=== PATIENT | female | born 1940 | race Caucasian/White ===

== ENCOUNTER → 2016-07-13 | Outpatient (CLI) | payer MEDICARE ==
[~2016-07-13] MED LIST: SODIUM CHLORIDE 0.9% 250 ML in EMPTY BAG 1 BAG IV PRN; SODIUM CHLORIDE 0.9% 500 ML in EMPTY BAG 1 BAG IV PRN
[2016-07-13 11:16] VITALS: RESP 16; TEMP 97.8
[2016-07-13 12:06] VITALS: PULSE 59
[2016-07-13 12:22] VITALS: BP 123/75
== END ==
LOC: PROCWHC3 11:03
PROVIDERS: ATTEND Internal Medicine Rheumatology
DX: M06.09 Rheumatoid arthritis without rheumatoid factor, multiple sites (principal)
CPT/HCPCS: 96361; 96413; 96415; J1745

== ENCOUNTER → 2016-08-24 | Outpatient (CLI) | payer MEDICARE ==
[2016-08-24 11:34] VITALS: RESP 18; TEMP 98
[2016-08-24 13:16] VITALS: BP 110/59; PULSE 58
== END | disposition home or self-care (01) ==
LOC: PROCWHC3 11:03
PROVIDERS: ATTEND Internal Medicine Rheumatology
DX: M05.89 Other rheumatoid arthritis with rheumatoid factor of multiple sites (principal)
CPT/HCPCS: 96361; 96413; 96415; J1745

== ENCOUNTER → 2016-10-12 | Outpatient (CLI) | payer MEDICARE | END | disposition home or self-care (01) | LOC: PROCWHC3 11:35 | PROVIDERS: ATTEND Internal Medicine Rheumatology | DX: Z53.9 Procedure and treatment not carried out, unspecified reason (principal) ==

== ENCOUNTER → 2016-11-09 | Outpatient (CLI) | payer MEDICARE ==
[2016-11-09 10:24] VITALS: TEMP 97.7
[2016-11-09 10:57] LABS: Basophils % (A) 0 %; CH 31.8; CHCM 32.8; Eosinophils # (A) 0.4 k/uL (0-0.7); Eosinophils % (A) 7 %; HCT 39.7 % (34.0-46.0); HDW 3.06; HGB 12.7 gm/dL (11.4-16.0); Luc # (Auto) 0.15; Luc % (Auto) 3; Lymphocytes # (A) 2.5 k/uL (1.0-4.8); Lymphocytes % (A) 42 %; MCH 31.2 pg (25.0-35.0); MCHC 32.1 g/dL (31.0-37.0); MCV 97.4 fL (80.0-100.0); Mean Platelet Volume 9.4; Monocytes # (A) 0.3 k/uL (0-1.0); Monocytes % (A) 5 %; Neutrophils # (A) 2.6 k/uL (1.3-7.7); Neutrophils % (A) 44 %; RBC 4.08 m/uL (3.80-5.40); RDW 13.8 % (11.5-15.5); WBC (Perox) 6.03
[2016-11-09 11:08] VITALS: PULSE 61; RESP 16
[2016-11-09 11:54] LABS: Erythrocyte Sedimentation Rate 8 mm/hr (0-20)
[2016-11-09 12:00] VITALS: BP 144/71
[2016-11-09 13:09] LABS: C Reactive Protein 6.4 mg/L (<10.0)
== END ==
LOC: PROCWHC3 08:51
PROVIDERS: ATTEND Internal Medicine Rheumatology
DX: M06.89 Other specified rheumatoid arthritis, multiple sites (principal)
CPT/HCPCS: 85652; 82550; 84450; 84460; 85025; 86140; 96413; 96415; J1745

== ENCOUNTER → 2016-11-14 | Outpatient (CLI) | payer MEDICARE | END | disposition home or self-care (01) | LOC: LABWHC1 15:50 | PROVIDERS: ATTEND Physical Medicine & Rehabilitation | DX: Z01.812 Encounter for preprocedural laboratory examination (principal); N28.9 Disorder of kidney and ureter, unspecified; M54.5 Low back pain; M43.06 Spondylolysis, lumbar region; M47.896 Other spondylosis, lumbar region; M41.26 Other idiopathic scoliosis, lumbar region; M51.17 Intervertebral disc disorders with radiculopathy, lumbosacral region | CPT/HCPCS: 36415; 82565; 84520 ==

== ENCOUNTER → 2016-12-21 | Outpatient (CLI) | payer MEDICARE ==
[2016-12-21 10:49] VITALS: TEMP 98.5
[2016-12-21 12:03] VITALS: RESP 18
[2016-12-21 12:45] VITALS: BP 106/54; PULSE 55
== END | disposition home or self-care (01) ==
LOC: PROCWHC3 10:20
PROVIDERS: ATTEND Internal Medicine Rheumatology
DX: M06.89 Other specified rheumatoid arthritis, multiple sites (principal)
CPT/HCPCS: 96413; 96415; J1745

== ENCOUNTER → 2017-02-01 | Outpatient (CLI) | payer MEDICARE ==
[2017-02-01 11:14] VITALS: TEMP 98
[2017-02-01 11:25] LABS: Basophils % (A) 1 %; CH 31.8; CHCM 32.7; Eosinophils # (A) 0.4 k/uL (0-0.7); Eosinophils % (A) 6 %; HCT 36.2 % (34.0-46.0); HDW 2.98; HGB 11.9 gm/dL (11.4-16.0); Luc # (Auto) 0.17; Luc % (Auto) 3; Lymphocytes # (A) 2.3 k/uL (1.0-4.8); Lymphocytes % (A) 37 %; MCH 32.2 pg (25.0-35.0); MCHC 32.8 g/dL (31.0-37.0); Mean Platelet Volume 8.5; Monocytes # (A) 0.3 k/uL (0-1.0); Monocytes % (A) 4 %; Neutrophils # (A) 3.1 k/uL (1.3-7.7); Neutrophils % (A) 49 %; RBC 3.69 m/uL (3.80-5.40); RDW 14.9 % (11.5-15.5); WBC 6.3 k/uL (3.8-10.6); WBC (Perox) 6.74
[2017-02-01 11:36] LABS: ALT 39 U/L (9-52); AST 30 U/L (14-36); C Reactive Protein <5.0 mg/L (<10.0); Non-African American GFR(MDRD) 48 (>60 ml/min/1.73 sqM)
[2017-02-01 11:48] VITALS: RESP 18
[2017-02-01 12:51] LABS: Erythrocyte Sedimentation Rate 12 mm/hr (0-20)
[2017-02-01 12:52] VITALS: BP 144/83; PULSE 65
== END | disposition home or self-care (01) ==
LOC: PROCWHC3 10:24
PROVIDERS: ATTEND Internal Medicine Rheumatology
DX: M06.89 Other specified rheumatoid arthritis, multiple sites (principal)
CPT/HCPCS: 85652; 82565; 84450; 84460; 85025; 86140; 96413; 96415; 36415; J1745

== ENCOUNTER → 2017-03-20 | Outpatient (CLI) | payer MEDICARE ==
[~2017-03-20] MED LIST changes: +INFLIXIMAB-DYYB 500 MG in SODIUM CHLORIDE 0.9% 250 ML IV NR; -SODIUM CHLORIDE 0.9% 250 ML in EMPTY BAG 1 BAG IV PRN
[2017-03-20 12:23] VITALS: TEMP 98.2
[2017-03-20 13:51] VITALS: BP 134/98; PULSE 67; RESP 18
== END | disposition home or self-care (01) ==
LOC: PROCWHC3 11:59
PROVIDERS: ATTEND Internal Medicine Rheumatology
DX: M06.89 Other specified rheumatoid arthritis, multiple sites (principal)
CPT/HCPCS: 96413; 96415; Q5102

== ENCOUNTER → 2017-05-29 | Outpatient (CLI) | payer MEDICARE ==
[2017-05-29 11:41] VITALS: RESP 16; TEMP 96.5
[2017-05-29 12:10] LABS: Basophils % (A) 1 %; CH 30.2; CHCM 32.4; Eosinophils # (A) 0.4 k/uL (0-0.7); Eosinophils % (A) 5 %; HCT 39.2 % (34.0-46.0); HDW 3.12; HGB 12.4 gm/dL (11.4-16.0); Luc # (Auto) 0.34; Luc % (Auto) 5; Lymphocytes % (A) 40 %; MCH 29.7 pg (25.0-35.0); MCHC 31.7 g/dL (31.0-37.0); MCV 93.6 fL (80.0-100.0); Mean Platelet Volume 7.2; Monocytes # (A) 0.3 k/uL (0-1.0); Monocytes % (A) 5 %; Neutrophils # (A) 3.4 k/uL (1.3-7.7); Neutrophils % (A) 45 %; RBC 4.18 m/uL (3.80-5.40); RDW 12.7 % (11.5-15.5); WBC 7.6 k/uL (3.8-10.6); WBC (Perox) 7.59
[2017-05-29 13:20] LABS: Erythrocyte Sedimentation Rate 25 mm/hr (0-20)
[2017-05-29 13:37] LABS: ALT 26 U/L (9-52); AST 25 U/L (14-36); C Reactive Protein <5.0 mg/L (<10.0); Non-African American GFR(MDRD) 44 (>60 ml/min/1.73 sqM)
[2017-05-29 13:58] VITALS: BP 128/58; PULSE 56
== END | disposition home or self-care (01) ==
LOC: PROCWHC3 11:08
PROVIDERS: ATTEND Internal Medicine Rheumatology
DX: M06.09 Rheumatoid arthritis without rheumatoid factor, multiple sites (principal)
CPT/HCPCS: 85652; 82565; 84450; 84460; 85025; 86140; 96365; Q5102

== ENCOUNTER → 2017-07-10 | Outpatient (CLI) | payer MEDICARE ==
[2017-07-10 11:59] VITALS: TEMP 98.3
[2017-07-10 13:32] VITALS: BP 127/91; PULSE 79; RESP 16
== END | disposition home or self-care (01) ==
LOC: PROCWHC3 11:44
PROVIDERS: ATTEND Internal Medicine Rheumatology
DX: M06.09 Rheumatoid arthritis without rheumatoid factor, multiple sites (principal)
CPT/HCPCS: 96413; 96415; Q5102

== ENCOUNTER → 2017-08-29 | Outpatient (CLI) | payer MEDICARE ==
[~2017-08-29] MED LIST changes: -INFLIXIMAB-DYYB 500 MG in SODIUM CHLORIDE 0.9% 250 ML IV NR; +INFLIXIMAB-DYYB 500 MG in SODIUM CHLORIDE 0.9% 250 ML IV ONE
[2017-08-29 11:36] VITALS: TEMP 97.8
[2017-08-29 12:01] LABS: Basophils # (A) 0.1 k/uL (0-0.2); Basophils % (A) 1 %; Eosinophils # (A) 0.4 k/uL (0-0.7); Eosinophils % (A) 8 %; HCT 40.5 % (34.0-46.0); HGB 13.3 gm/dL (11.4-16.0); Lymphocytes # (A) 2.1 k/uL (1.0-4.8); Lymphocytes % (A) 41 %; MCH 30.7 pg (25.0-35.0); MCHC 32.7 g/dL (31.0-37.0); MCV 94.1 fL (80.0-100.0); Mean Platelet Volume 7.3; Monocytes # (A) 0.4 k/uL (0-1.0); Monocytes % (A) 7 %; Neutrophils # (A) 2.1 k/uL (1.3-7.7); Neutrophils % (A) 40 %; Platelet Count 161 k/uL (150-450); RBC 4.31 m/uL (3.80-5.40); RDW 15.3 % (11.5-15.5); WBC 5.2 k/uL (3.8-10.6)
[2017-08-29 12:10] LABS: ALT 25 U/L (9-52); AST 22 U/L (14-36); C Reactive Protein <5.0 mg/L (<10.0)
[2017-08-29 13:14] VITALS: BP 122/68; PULSE 58; RESP 14
[2017-08-29 13:54] LABS: Erythrocyte Sedimentation Rate 8 mm/hr (0-20)
== END | disposition home or self-care (01) ==
LOC: PROCWHC3 10:58
PROVIDERS: ATTEND Internal Medicine Rheumatology
DX: M06.09 Rheumatoid arthritis without rheumatoid factor, multiple sites (principal); Z88.2 Allergy status to sulfonamides
CPT/HCPCS: 85652; 82565; 84450; 84460; 85025; 86140; 96413; 96415; 36415; Q5102

== ENCOUNTER → 2017-10-10 | Outpatient (CLI) | payer MEDICARE ==
[~2017-10-10] MED LIST changes: +INFLIXIMAB-DYYB 500 MG in SODIUM CHLORIDE 0.9% 250 ML IV NR; -INFLIXIMAB-DYYB 500 MG in SODIUM CHLORIDE 0.9% 250 ML IV ONE
[2017-10-10 11:24] VITALS: TEMP 97.1
[2017-10-10 12:06] VITALS: RESP 18
[2017-10-10 12:36] VITALS: BP 139/63; PULSE 66
== END | disposition home or self-care (01) ==
LOC: PROCWHC3 10:59
PROVIDERS: ATTEND Internal Medicine Rheumatology
DX: M06.09 Rheumatoid arthritis without rheumatoid factor, multiple sites (principal); M06.4 Inflammatory polyarthropathy
CPT/HCPCS: 96413; 96415; Q5103

== ENCOUNTER → 2017-11-06 | Outpatient (CLI) | payer MEDICARE ==
--- NOTE | 2017-11-07 09:41 | BD ---
EXAMINATION TYPE: Axial Bone Density DATE OF EXAM: 11/06/2017 COMPARISON: 08/21/2005 DEXA bone scan report. CLINICAL HISTORY: Postmenopausal female Height: 61. IN Weight: 184 LBS FRAX RISK QUESTIONS: History of Fracture in Adulthood: LT ANKLE FX AGE 64 Rheumatoid Arthritis: YES RISK FACTORS HISTORY OF: Family History of Osteoporosis: YES MOTHER Active: YES Diet low in dairy products/other sources of calcium: YES Postmenopausal woman: AGE 51 MEDICATIONS: Additional Medications: EFFEXOR, METROPROLOL, OMEPRAZOLE, SIMVASTATIN, REMICADE INFUSION (EVERY 6 WEE KS FOR RA), METHOTREXATE (3 ONCE PER WEEK FOR RA), MOBIC, TOPIRAMATE, MULTI VIT, FISH OIL, EXAM MEASUREMENTS: Bone mineral densitometry was performed using the [employer]. Bone mineral density as measured about the Lumbar spine is: ----- L1-L4(G/cm2): 1.258 T Score Values are as follows: ----- L2: 1.2 ----- L3: -1.5 ----- L4: 1.5 ----- L1-L4: 0.7 Bone mineral density has: Decreased -16.0% since study of: 08/21/2005 Bone mineral density about the R hip (g/cm2): 0.976 Bone mineral density about the L hip (g/cm2): 0.816 T Score values are as follows: -----R Neck: -0.4 -----L Neck: -1.6 -----R Total: -1.0 -----L Total: -0.9 Bone mineral density has: Decreased -17.6% since study of: 08/21/2005 IMPRESSION: Osteopenia (T Score between -2.5 and -1) is present femoral neck level left hip. There is slightly increased risk of fracture and the patient may be considered for treatment. Re-Screen 2-5 years. NOTE: T-SCORE=SD OF THE YOUNG ADULT MEAN.
--- NOTE | 2017-11-07 10:59 | MM ---
Reason for exam: screening (asymptomatic). Last mammogram was performed 2 years and 3 months ago. History: Patient is postmenopausal and has history of high-risk lesion on a previous biopsy at age 67. Family history of breast cancer in maternal grandmother at age 50. Benign MG stereo VAD BX RT of the right breast, August 20, 2014. Excisional biopsy of the right breast, November 28, 2007. High risk right mammotome panel of the right breast, August 14, 2007. Physical Findings: A clinical breast exam by your physician is recommended on an annual basis and results should be correlated with mammographic findings. MG Screening Mammo w CAD Bilateral CC and MLO view(s) were taken. Prior study comparison: August 05, 2015, bilateral MG 3d diag mammo w/cad JEFFRY. January 31, 2015, right breast MG diagnostic mammo RT w CAD. June 16, 2014, bilateral MG screening mammo w CAD. There are scattered fibroglandular densities. Finding: There are increased heterogeneous, tightly grouped/clustered calcifications in the upper outer quadrant of the left breast 11cm from the nipple. Previous mammotome biopsy in the right breast. New finding since August 05, 2015, January 31, 2015, and June 16, 2014. ASSESSMENT: Incomplete: need additional imaging evaluation, BI-RAD 0 RECOMMENDATION: Special view mammogram of the left breast. [facility] will attempt to contact patient to return for supplemental views.
== END | disposition home or self-care (01) ==
LOC: RADMAMWWP 14:47
PROVIDERS: ATTEND Internal Medicine
DX: Z12.31 Encounter for screening mammogram for malignant neoplasm of breast (principal); M85.852 Other specified disorders of bone density and structure, left thigh; Z78.0 Asymptomatic menopausal state
CPT/HCPCS: 77067; 77080

== ENCOUNTER → 2017-11-18 | Outpatient (CLI) | payer MEDICARE ==
--- NOTE | 2017-11-19 09:43 | MM ---
Reason for exam: additional evaluation requested from abnormal screening. Last mammogram was performed less than 1 month ago. History: Patient is postmenopausal and has history of high-risk lesion on a previous biopsy at age 67. Family history of breast cancer in maternal grandmother at age 50. Benign MG stereo VAD BX RT of the right breast, August 20, 2014. Excisional biopsy of the right breast, November 28, 2007. High risk right mammotome panel of the right breast, August 14, 2007. Took estrogen for 5 years beginning at age 50. Took progesterone for 5 years beginning at age 50. Physical Findings: Nurse Summary: 0.5cm nodule in the left breast at 2 o'clock (nurse dw). MG 3D Work Up W/Cad LT CC with magnification, LM with magnification, and LM view(s) were taken of the left breast. Prior study comparison: November 06, 2017, bilateral MG screening mammo w CAD. August 05, 2015, bilateral MG 3d diag mammo w/cad JEFFRY. Stable benign appearing calcifications. These results were verbally communicated with the patient and result sheet given to the patient on 11/18/17. ASSESSMENT: Incomplete: need additional imaging evaluation, BI-RAD 0 RECOMMENDATION: Ultrasound of the left breast.
--- NOTE | 2017-11-19 09:47 | USB ---
Reason for exam: additional evaluation requested from abnormal screening. History: Patient is postmenopausal and has history of high-risk lesion on a previous biopsy at age 67. Family history of breast cancer in maternal grandmother at age 50. Benign MG stereo VAD BX RT of the right breast, August 20, 2014. Excisional biopsy of the right breast, November 28, 2007. High risk right mammotome panel of the right breast, August 14, 2007. Took estrogen for 5 years beginning at age 50. Took progesterone for 5 years beginning at age 50. US Breast Workup Limited LT Left limited breast ultrasound including focal area of concern, retroareolar and axilla demonstrates a 0.5 x 0.3 x 0.3cm mixed lesion at 12 o'clock and a 0.6 x 0.5 x 0.5cm hyperechoic lesion at 2 o'clock. These results were verbally communicated with the patient and result sheet given to the patient on 11/18/17. ASSESSMENT: Probably benign, BI-RAD 3 RECOMMENDATION: Ultrasound of the left breast in 6 months. Manage patient on a clinical basis.
== END | disposition home or self-care (01) ==
LOC: RADMAMWWP 15:42
PROVIDERS: ATTEND Internal Medicine
DX: R92.8 Other abnormal and inconclusive findings on diagnostic imaging of breast (principal)
CPT/HCPCS: 77065; 76642; G0279; 77061

== ENCOUNTER → 2017-11-21 | Outpatient (CLI) | payer MEDICARE ==
[2017-11-21 11:46] VITALS: TEMP 99
[2017-11-21 13:06] VITALS: BP 133/83; PULSE 65; RESP 16
== END | disposition home or self-care (01) ==
LOC: PROCWHC3 11:03
PROVIDERS: ATTEND Internal Medicine Rheumatology
DX: M06.4 Inflammatory polyarthropathy (principal)
CPT/HCPCS: 96413; 96415; Q5103

== ENCOUNTER → 2018-01-08 | Outpatient (CLI) | payer MEDICARE ==
[2018-01-08 10:33] LABS: HCT 39.5 % (34.0-46.0); HGB 12.8 gm/dL (11.4-16.0); MCH 31.7 pg (25.0-35.0); MCHC 32.4 g/dL (31.0-37.0); MCV 97.6 fL (80.0-100.0); Mean Platelet Volume 7.7; Platelet Count 152 k/uL (150-450); RBC 4.05 m/uL (3.80-5.40); RDW 13.8 % (11.5-15.5); WBC 7.6 k/uL (3.8-10.6)
[2018-01-08 10:47] LABS: Albumin 3.8 g/dL (3.5-5.0); Potassium 4.5 mmol/L (3.5-5.1); Total Bilirubin 0.4 mg/dL (0.2-1.3); Total Protein 6.6 g/dL (6.3-8.2)
== END | disposition home or self-care (01) ==
LOC: LABWHC1 10:09
PROVIDERS: ATTEND Thoracic Surgery (Cardiothoracic Vascular Surgery)
DX: E63.8 Other specified nutritional deficiencies (principal)
CPT/HCPCS: 36415; 80053; 84134; 85027

== ENCOUNTER → 2018-03-07 | Outpatient (CLI) | payer MEDICARE ==
[~2018-03-07] MED LIST changes: +SODIUM CHLORIDE 0.9% 500 ML 500 ML in EMPTY BAG 1 BAG IV PRN; -SODIUM CHLORIDE 0.9% 500 ML in EMPTY BAG 1 BAG IV PRN
[2018-03-07 13:06] VITALS: RESP 18; TEMP 98.2
[2018-03-07 13:21] LABS: HCT 38.6 % (34.0-46.0); HGB 12.4 gm/dL (11.4-16.0); MCH 31.5 pg (25.0-35.0); MCHC 32.1 g/dL (31.0-37.0); MCV 98.4 fL (80.0-100.0); Mean Platelet Volume 7.3; Platelet Count 166 k/uL (150-450); RBC 3.92 m/uL (3.80-5.40); RDW 14.4 % (11.5-15.5); WBC 6.9 k/uL (3.8-10.6)
[2018-03-07 13:53] LABS: ALT 36 U/L (9-52); AST 33 U/L (14-36); C Reactive Protein <5.0 mg/L (<10.0)
[2018-03-07 14:01] LABS: Erythrocyte Sedimentation Rate 13 mm/hr (0-20)
[2018-03-07 14:24] VITALS: BP 130/82; PULSE 70
== END | disposition home or self-care (01) ==
LOC: PROCWHC3 11:50
PROVIDERS: ATTEND Internal Medicine Rheumatology
DX: M06.09 Rheumatoid arthritis without rheumatoid factor, multiple sites (principal); M06.4 Inflammatory polyarthropathy
CPT/HCPCS: 85652; 82565; 84450; 84460; 85027; 86140; 96413; 96415; Q5103

== ENCOUNTER → 2018-04-18 | Outpatient (CLI) | payer MEDICARE ==
[2018-04-18 11:50] VITALS: TEMP 97.9
[2018-04-18 12:54] VITALS: RESP 16
[2018-04-18 13:39] VITALS: BP 136/79; PULSE 65
== END | disposition home or self-care (01) ==
LOC: PROCWHC3 11:04
PROVIDERS: ATTEND Internal Medicine Rheumatology
DX: M06.09 Rheumatoid arthritis without rheumatoid factor, multiple sites (principal); M06.4 Inflammatory polyarthropathy
CPT/HCPCS: 96413; 96415; Q5103

== ENCOUNTER → 2018-06-06 | Outpatient (CLI) | payer MEDICARE ==
[2018-06-06 09:06] VITALS: TEMP 98.3
[2018-06-06 09:55] VITALS: RESP 18
[2018-06-06 10:46] VITALS: BP 129/83; PULSE 77
== END | disposition home or self-care (01) ==
LOC: PROCWHC3 08:34
PROVIDERS: ATTEND Internal Medicine Rheumatology
DX: M06.09 Rheumatoid arthritis without rheumatoid factor, multiple sites (principal); Z88.2 Allergy status to sulfonamides
CPT/HCPCS: 96413; 96415; Q5103

== ENCOUNTER → 2018-07-04 | Outpatient (CLI) | payer MEDICARE ==
--- NOTE | 2018-07-08 11:54 | USB ---
Reason for exam: additional evaluation requested from prior study. History: Patient is postmenopausal and has history of high-risk lesion on a previous biopsy at age 67. Family history of breast cancer in maternal grandmother at age 50. Benign MG stereo VAD BX RT of the right breast, August 20, 2014. Excisional biopsy of the right breast, November 28, 2007. High risk right mammotome panel of the right breast, August 14, 2007. Took estrogen for 5 years beginning at age 50. Took progesterone for 5 years beginning at age 50. Physical Findings: Nurse Summary: Left breast prominent nodularity at 12 and 1 o'clock. All soft and movable. US Breast LT Prior study comparison: November 18, 2017, left breast MG 3d work up w/cad LT. November 18, 2017, left breast US breast workup limited LT. Left complete breast ultrasound includes all four quadrants, the retroareolar region and axilla. Finding demonstrates a 5 x 3 x 2 mm oval hyopechoic lesion seen on previous ultrasound. These results were verbally communicated with the patient and result sheet given to the patient on 07/04/18. ASSESSMENT: Probably benign, BI-RAD 3 RECOMMENDATION: Routine screening mammogram of both breasts in 6 months. Ultrasound of the left breast in 6 months.
== END | disposition home or self-care (01) ==
LOC: RADUSWWP 14:51
PROVIDERS: ATTEND Internal Medicine
DX: N63.20 Unspecified lump in the left breast, unspecified quadrant (principal)

== ENCOUNTER → 2018-07-22 | Outpatient (CLI) | payer MEDICARE ==
[2018-07-22 10:21] VITALS: RESP 16; TEMP 98.3
[2018-07-22 11:38] VITALS: BP 98/64; PULSE 68
[2018-07-22 12:00] LABS: Basophils % (A) 0 %; Eosinophils # (A) 0.4 k/uL (0-0.7); Eosinophils % (A) 4 %; HCT 38.9 % (34.0-46.0); HGB 13.1 gm/dL (11.4-16.0); Lymphocytes # (A) 1.8 k/uL (1.0-4.8); Lymphocytes % (A) 23 %; MCH 31.5 pg (25.0-35.0); MCHC 33.7 g/dL (31.0-37.0); MCV 93.4 fL (80.0-100.0); Mean Platelet Volume 8.1; Monocytes # (A) 0.4 k/uL (0-1.0); Monocytes % (A) 5 %; Neutrophils % (A) 64 %; Platelet Count 176 k/uL (150-450); RBC 4.17 m/uL (3.80-5.40); RDW 13.2 % (11.5-15.5); WBC 7.8 k/uL (3.8-10.6)
[2018-07-22 12:14] LABS: C Reactive Protein 28.5 mg/L (<10.0)
[2018-07-22 15:33] LABS: Erythrocyte Sedimentation Rate 39 mm/hr (0-20)
== END ==
LOC: PROCWHC3 09:54
PROVIDERS: ATTEND Internal Medicine Rheumatology
DX: M06.09 Rheumatoid arthritis without rheumatoid factor, multiple sites (principal); Z88.2 Allergy status to sulfonamides
CPT/HCPCS: 85652; 82565; 84460; 85025; 86140; 96413; 96415; Q5103

== ENCOUNTER → 2018-08-25 | Outpatient (CLI) | payer MEDICARE ==
--- NOTE | 2018-08-25 16:07 | XR ---
EXAMINATION TYPE: XR chest 2V DATE OF EXAM: 08/25/2018 COMPARISON: None INDICATION: Short of breath TECHNIQUE: Frontal and lateral views of the chest are obtained. FINDINGS: The heart size is normal. The pulmonary vasculature is normal. Chronic appearing lung markings appear to be present. Correlate for pulmonary fibrosis. Suspicious fo karri consolidation is not identified. IMPRESSION: 1. Diffuse increased lung markings suggestive for pulmonary fibrosis. Focal consolidation is not evid ent. Follow-up exams can be performed as clinically indicated.
== END | disposition home or self-care (01) ==
LOC: RADXRMAIN 13:41
PROVIDERS: ATTEND Internal Medicine
DX: J98.4 Other disorders of lung (principal); R06.02 Shortness of breath
CPT/HCPCS: 71046

== ENCOUNTER → 2018-09-02 | Outpatient (CLI) | payer MEDICARE ==
[2018-09-02 12:12] VITALS: PULSE 86; RESP 16; TEMP 98.1
[2018-09-02 13:40] VITALS: BP 111/67
== END | disposition home or self-care (01) ==
LOC: PROCWHC3 11:00
PROVIDERS: ATTEND Internal Medicine Rheumatology
DX: M06.09 Rheumatoid arthritis without rheumatoid factor, multiple sites (principal); Z88.2 Allergy status to sulfonamides
CPT/HCPCS: 96413; 96415; Q5103

== ENCOUNTER → 2018-09-10 | Outpatient (CLI) | payer MEDICARE ==
--- NOTE | 2018-09-10 14:58 | CT ---
EXAMINATION TYPE: CT chest w con DATE OF EXAM: 09/10/2018 COMPARISON: Chest x-ray from August 25, 2018 HISTORY: Pulmonary Fibrosis per order. Shortness of breath and cough. CT DLP: 534 mGycm. Automated Exposure Control for Dose Reduction was Utilized. TECHNIQUE: CT scan of the thorax is performed following with IV Contrast, patient injected with 80 m L of Isovue 300. FINDINGS: LUNGS: There is confirmation of peripheral reticulation and fibrosis seen bilaterally and diffusely i nvolving upper and lower lungs. Some honeycombing in the bases is present just above the diaphragms. No suspicious consolidation is seen. No pleural effusion or pneumothorax is noted. Tracheobronchial t ree is patent. MEDIASTINUM: There are borderline enlarged mediastinal and left hilar lymph nodes. No cardiomegaly or pericardial effusion is seen. Enlarged right and left pulmonary arteries consistent with underlyi ng pulmonary hypertension is present. OTHER: There is 4 mm calculus upper pole right kidney axial image 61. Underlying S-shaped scoliosis w ith moderate multilevel spurring in the visualized spine is present. IMPRESSION: Confirmation of diffuse bilateral parenchymal fibrosis in the periphery without acute pul monary process. Underlying IPF needs to BE considered. Underlying pulmonary artery hypertension noted .
== END | disposition home or self-care (01) ==
LOC: RADCTMAIN 12:48
PROVIDERS: ATTEND Internal Medicine
DX: J84.112 Idiopathic pulmonary fibrosis (principal); I27.21 Secondary pulmonary arterial hypertension
CPT/HCPCS: 82565; 84520; 71260; 36415; Q9967

== ENCOUNTER 2018-09-23 03:33 | Inpatient (IN) | payer MEDICARE ==
[2018-09-23] MEDS ORDERED: MORPHINE SULFATE 4 MG/ML SYRINGE IV STA (04:09)
--- NOTE | 2018-09-23 04:13 | ED ---
Chest Pain HPI - General Chief Complaint: Chest Pain Stated Complaint: Chest Pain SOB Time Seen by Provider: 09/23/18 03:47 Source: patient, family Mode of arrival: ambulatory Limitations: no limitations - History of Present Illness Initial Comments: This patient is a 78-year-old woman who presents to be evaluated for right upper chest pain and a cough. She states that this is been going on "since the holidays," and that she is scheduled to see Dr. Galo regarding pulmonary fibrosis. She believes the pain is related to this. Patient states that she presents tonight because the pain is become more intense parameters sleep. The patient states that the cough is largely nonproductive. She has not noted fever or chills. She describes it pain as being sharp, constant, now severe. The pain is worse pressing on the chest also with coughing and with deep breaths. She has not noted relieving factors. No other associated symptoms. MD Complaint: chest pain -: month(s) Onset: during rest Pain Location: right chest Pain Radiation: none Severity: moderate Quality: sharp Consistency: constant Improves With: nothing Worsens With: inspiration, palpation Other Symptoms: cough Treatments Prior to Arrival: none - Related Data Home Medications Medication Instructions Recorded Confirmed Aspirin 81 mg PO DAILY 11/11/13 09/02/18 Ergocalciferol [Vitamin D2 1,000 mg PO DAILY 11/11/13 09/02/18 (DRISDOL)] Fish Oil/Dha/Epa [Fish Oil 1,200 1 tab PO DAILY 11/11/13 09/02/18 mg Fish Oil] Gluc HCl/Ashvin/Mv/Min Aa/Hb 162 1 tab PO DAILY 11/11/13 09/02/18 [Glucosamine-Chondroitin Caplet] HYDROcodone/APAP 10-325MG [Johnson 0.325 mg PO Q4HR PRN 11/11/13 09/02/18 10-325] Methotrexate Sodium [Methotrexate] 7.5 mg PO WEEKLY 11/11/13 09/02/18 Metoprolol Succinate (ER) [Toprol 100 mg PO DAILY 11/11/13 09/02/18 XL] Multiple Vitamin 1 tab PO DAILY 11/11/13 09/02/18 Omeprazole [PriLOSEC] 20 mg PO DAILY 11/11/13 09/02/18 Simvastatin [Zocor] 40 mg PO HS 11/11/13 09/02/18 Topiramate [Trokendi Xr] 100 mg PO DAILY 11/11/13 09/02/18 inFLIXimab [Remicade] 500 mg IVPB DIRECTED 11/11/13 09/02/18 Venlafaxine HCl [Effexor] 75 mg PO TID 12/21/16 09/02/18 Mupirocin Calcium 2% Cream 1 applic TOPICAL TID 01/08/18 09/02/18 [Bactroban 2% Cream] Allergies Allergy/AdvReac Type Severity Reaction Status Date / Time Sulfa (Sulfonamide Allergy Rash/Hives Verified 09/23/18 03:41 Antibiotics) Review of Systems ROS Statement: Those systems with pertinent positive or pertinent negative responses have been documented in the HPI. ROS Other: All systems not noted in ROS Statement are negative. Constitutional: Denies: fever, chills Respiratory: Reports: cough. Denies: dyspnea, wheezes, hemoptysis Cardiovascular: Reports: chest pain. Denies: palpitations, orthopnea, edema, syncope Gastrointestinal: Denies: abdominal pain, vomiting, diarrhea Genitourinary: Denies: dysuria Musculoskeletal: Denies: back pain Skin: Denies: rash Neurological: Denies: headache EKG Findings - EKG Results: EKG: interpreted by ERMSanjuanita, sinus rhythm (Rate 94 bpm) - Blocks, [place], Hypertrophy, ST Abn: QRS axis and voltage: left axis deviation (-30 to -90) Chamber hypertrophy or enlargement: only voltage criteria for left ventricular hypertrophy Repolarization changes or abnormalities: nonspecific abnormality, ST segment, and/or T wave Past Medical History Past Medical History: GERD/Reflux, Hyperlipidemia, Hypertension, Rheumatoid Arthritis (RA), Sleep Apnea/CPAP/BIPAP Additional Past Medical History / Comment(s): pulmonary fibrosis History of Any Multi-Drug Resistant Organisms: None Reported Past Surgical History: Back Surgery, Hysterectomy Additional Past Surgical History / Comment(s): SINUS SURG/COLONOSCOPY/RT BREAST BIOPSY/ANKLE ORIF LT/LT KNEE ARTHROSCOPY/LASIK SURG BOTH EYES. hardware removed from left ankle in January 2017 Past Anesthesia/Blood Transfusion Reactions: No Reported Reaction Past Psychological History: No Psychological Hx Reported Smoking Status: Never smoker Past Alcohol Use History: None Reported Past Drug Use History: None Reported - Past Family History Mother Family Medical History: CVA/TIA, Hypertension, Rheumatoid Arthritis (RA) Father Family Medical History: Cancer General Exam Limitations: no limitations General appearance: alert, in no apparent distress Head exam: Present: atraumatic, normocephalic Eye exam: Present: normal appearance. Absent: scleral icterus, conjunctival injection ENT exam: Present: normal oropharynx Respiratory exam: Present: respiratory distress (Mild tachypnea), rales. Absent: wheezes, rhonchi, stridor, accessory muscle use, decreased breath sounds, prolonged expiratory Cardiovascular Exam: Present: normal rhythm, tachycardia, normal heart sounds. Absent: systolic murmur, diastolic murmur, rubs, gallop GI/Abdominal exam: Present: soft. Absent: distended, tenderness, guarding, rebound, rigid, mass Extremities exam: Present: normal inspection, normal capillary refill. Absent: pedal edema, calf tenderness Back exam: Present: normal inspection. Absent: CVA tenderness (R), CVA tenderness (L) Neurological exam: Present: alert Skin exam: Present: warm, dry, intact, normal color. Absent: rash Course Vital Signs 09/23/18 09/23/18 09/23/18 03:37 04:36 04:39 Temperature 98.4 F Pulse Rate 108 H 90 Respiratory 22 22 20 Rate Blood Pressure 132/83 144/87 O2 Sat by Pulse 96 98 Oximetry 09/23/18 07:19 Temperature Pulse Rate 72 Respiratory 16 Rate Blood Pressure 164/97 O2 Sat by Pulse 100 Oximetry Chest Pain MDM - MDM Patient is 78-year-old woman in with dyspnea. Suspect that this is multifactorial, including element of pulmonary fibrosis, for which she was to see Dr. Galo. Also suspect that there is component of infiltrate. Patient s tarted on antibiotics, he admitted, and have pulmonary consultation. Disposition Clinical Impression: Pneumonia, Pulmonary fibrosis Disposition: ADMITTED IP TO THIS HOSP Condition: Fair Is patient prescribed a controlled substance at d/c from ED?: No
[2018-09-23] MEDS ORDERED: ONDANSETRON 4 MG/2 ML VIAL IVP STA (04:28)
--- NOTE | 2018-09-23 04:40 | XR ---
ADDENDUM - Added by Timmy Nickerson M.D. on 09/23/2018 4:47 AM (-07:00) Redemonstration of peripheral fibrotic changes bilaterally. EXAM: XR Chest, 2 Views CLINICAL HISTORY: ITS.REASON XR Reason: Chest Pain TECHNIQUE: Frontal and lateral views of the chest. COMPARISON: Chest radiography 08/25/18. FINDINGS: Lungs: Heterogeneous opacities bilaterally. Most prominent at the bases. No dense consolidation. No pleural effusion or pneumothorax. No hilar or mediastinal enlargement. Trachea is unremarkable. Pleural space: See above. Heart: No cardiomegaly. Mediastinum: See above. Bones/joints: Degenerative spine changes. IMPRESSION: Heterogeneous bibasilar opacities. Correlate for infectious etiology.
[2018-09-23 04:44] LABS: Basophils % (A) 0 %; Eosinophils # (A) 0.1 k/uL (0-0.7); Eosinophils % (A) 0 %; HGB 13.1 gm/dL (11.4-16.0); Lymphocytes # (A) 1.4 k/uL (1.0-4.8); Lymphocytes % (A) 9 %; MCH 29.9 pg (25.0-35.0); MCHC 32.7 g/dL (31.0-37.0); MCV 91.6 fL (80.0-100.0); Mean Platelet Volume 9.1; Monocytes # (A) 0.8 k/uL (0-1.0); Monocytes % (A) 5 %; Neutrophils # (A) 13.5 k/uL (1.3-7.7); Neutrophils % (A) 84 %; Platelet Count 104 k/uL (150-450); RBC 4.37 m/uL (3.80-5.40); RDW 14.3 % (11.5-15.5); WBC 16.1 k/uL (3.8-10.6)
[2018-09-23 04:45] LABS: Albumin 3.6 g/dL (3.5-5.0); Calcium 9.9 mg/dL (8.4-10.2); Total Bilirubin 2.3 mg/dL (0.2-1.3); Total Protein 7.9 g/dL (6.3-8.2)
--- NOTE | 2018-09-23 06:21 | CT ---
EXAM: CT Angiography Chest With Intravenous Contrast CLINICAL HISTORY: Pain TECHNIQUE: Axial computed tomographic angiography images of the chest with intravenous contrast using pulmonary embolism protocol. CTDI is 0.085, 0. 085, 1.5, 1.5, 7.4 mGy and DLP is 329.4 mGy-cm. This CT exam was performed using one or more of the following dose reduction techniques: automated exposure control, adjustment of the mA and/or kV according to patient size, and/or use of iterative reconstruction technique. MIP reconstructed images were created and reviewed. COMPARISON: No relevant prior studies available. FINDINGS: Pulmonary arteries: No evidence of pulmonary embolus. Aorta: No thoracic aortic dissection or aneurysm. Lungs: Subpleural reticular opacities seen throughout both lungs likely representing chronic interstitial lung disease. An element of pulmonary vascular congestion or infection is not excluded. Pleural space: Unremarkable. No significant effusion. No pneumothorax. Heart: Coronary artery calcifications. Heart is mildly enlarged. No significant pericardial effusion. No evidence of RV dysfunction. Bones/joints: No acute fracture. No dislocation. Soft tissues: Unremarkable. Lymph nodes: Subcentimeter mediastinal and hilar lymph nodes, likely reactive. Kidneys and ureters: Nonobstructing calculus within the right kidney. IMPRESSION: 1. No pulmonary embolus. 2. Subpleural reticular opacities seen throughout both lungs likely representing chronic interstitial lung disease. An element of pulmonary vascular congestion or infection is not excluded. 3. Nonobstructing calculus within the right kidney.
[2018-09-23] MEDS ORDERED: AZITHROMYCIN 500 MG TAB PO STA (06:35)
[2018-09-23] MEDS ORDERED: PNEUMONIA PROTOCOL UTILIZED 1 EACH MISC PO PRN (06:36)
[2018-09-23] MEDS ORDERED: HYDROcodone/APAP 10-325MG 1 EACH TAB PO PRN (06:40)
[2018-09-23] MEDS: METOPROLOL SUCCINATE (ER) 100 MG TAB.ER.24H PO SCH (08:32)
[2018-09-23] MEDS: CHOLECALCIFEROL 1,000 UNIT TAB PO SCH (08:32)
[2018-09-23] MEDS: ASPIRIN 81 MG PO SCH (08:32)
[2018-09-23] MEDS: MUPIROCIN 2% OINT 22 GM TUBE TOPICAL SCH ×3 (08:34→21:54)
[2018-09-23] MEDS: PANTOPRAZOLE 40 MG TABLET PO SCH (08:49)
[2018-09-23] MEDS ORDERED: METHOTREXATE SODIUM 2.5 MG TAB PO SCH (09:00)
[2018-09-23] MEDS ORDERED: TOPIRAMATE 25 MG TAB PO SCH (09:00)
[2018-09-23] MEDS ORDERED: VENLAFAXINE HCL 75 MG TAB PO SCH (09:00)
[2018-09-23] MEDS: MULTIVITAMINS, THERA 1 EACH TAB PO SCH (12:47)
[2018-09-23] MEDS: GLYCOPYRROLATE 1 MG TAB PO SCH ×2 (12:47→21:53)
[2018-09-23] MEDS: TOPIRAMATE 100 MG TAB PO SCH ×2 (12:47→21:53)
--- NOTE | 2018-09-23 15:27 | P.CNPUL ---
History of Present Illness Consult date: 09/23/18 Requesting physician: Justin Baugh Reason for consult: dyspnea, cough, abnormal CXR/CT Chief complaint: Shortness of breath, right shoulder pain History of present illness: This is a very pleasant 78-year-old female patient who follows with Dr. Bacon out of [facility] [place]. She has a history of gastroesophageal reflux disease, hyperlipidemia, hypertension, sleep apnea, depression. She also follows with Dr. Lozada for rheumatoid arthritis. She had been on methotrexate for greater than 15 years. She is also on Remicade. She has been having ongoing issues since May 2018 with increasing shortness of breath and a dry nonproductive cough. A computed tomography scan done on 09/10/2018 revealed diffuse bilateral parenchymal fibrosis in the periphery without acute pulmonary process. Considerations for IPF was within the differential. She was actually scheduled to see Dr. Galo 09/26/2018 for a new patient consultation. She presented here to the emergency room early this morning with complaints of right upper chest pain and continued dry nonproductive cough. She has had pain in the right shoulder blade as well. A CT angiogram was performed and pulmonary embolus was ruled out. There is again subpleural reticular opacities seen throughout the lung forrest bilaterally representing chronic interstitial lung disease. She is seen today in consultation on the regular medical floor. She is awake and alert in no acute distress. She is currently resting comfortably i n bed. She is maintaining good O2 saturations in the high 90s on room air. She's been afebrile. Somewhat hypertensive. White count 16.1. Hemoglobin 13.1. Creatinine 1.26. Troponin negative 1. She is having ongoing discomfort in the right upper chest and shoulder blade area. No right upper quadrant pain. Review of Systems REVIEW OF SYSTEMS: CONSTITUTIONAL: Alert, oriented in no acute distress. Denies any recent significant weight loss or weight gain. EYES: Denies change in vision. EARS, NOSE, MOUTH, THROAT: Denies headaches, denies sore throat. CARDIOVASCULAR: Right-sided chest pain but no palpitations or syncopal episodes. RESPIRATORY: Shortness of breath, cough, congestion no hemoptysis. GASTROINTESTINAL: Denies change in appetite, denies abdominal pain GENITOURINARY: Denies hematuria, denies infections. MUSKULOSKELETAL: Denies pain, denies swelling. INTEGUMENTARY: Denies rash, denies eczema. NEUROLOGICAL: Denies recent memory loss, no recent seizure activity. PSYCHIATRIC: Denies anxiety, denies depression. HEMATOLOGIC/LYMPHATIC: Denies anemia, denies enlarged lymph nodes. Past Medical History Past Medical History: GERD/Reflux, Hyperlipidemia, Hypertension, Rheumatoid Arthritis (RA), Sleep Apnea/CPAP/BIPAP Additional Past Medical History / Comment(s): Pulmonary fibrosis, 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 History of Any Multi-Drug Resistant Organisms: MRSA Date of last positivie culture/infection: states fall 2017 MDRO Source:: abdomin Past Surgical History: Back Surgery, Hysterectomy, Orthopedic Surgery Additional Past Surgical History / Comment(s): Low back surgery, sinus surgery, L ankle ORIF-hardware since removed, L knee arthroscopy, colonoscopy, R breast core biopsy-benign, bilateral lasik eye surgery, abdominal wound debridements Past Anesthesia/Blood Transfusion Reactions: No Reported Reaction Smoking Status: Never smoker - Past Family History Mother Family Medical History: CVA/TIA, Hypertension Father Family Medical History: Cancer Additional Family Medical History / Comment(s): Father had lung cancer Medications and Allergies Home Medications Medication Instructions Recorded Confirmed Type Aspirin 81 mg PO DAILY 11/11/13 09/23/18 History Ergocalciferol [Vitamin D2 1,000 mg PO DAILY 11/11/13 09/23/18 History (DRISDOL)] Fish Oil/Dha/Epa [Fish Oil 1,200 1 tab PO DAILY 11/11/13 09/23/18 History mg Fish Oil] Methotrexate Sodium [Methotrexate] 7.5 mg PO WEEKLY 11/11/13 09/23/18 History Metoprolol Succinate (ER) [Toprol 100 mg PO DAILY 11/11/13 09/23/18 History XL] Omeprazole [PriLOSEC] 20 mg PO DAILY 11/11/13 09/23/18 History Simvastatin [Zocor] 40 mg PO HS 11/11/13 09/23/18 History Venlafaxine HCl [Effexor] 150 mg PO DAILY 12/21/16 09/23/18 History Glycopyrrolate [Robinul] 1 mg PO BID 09/23/18 09/23/18 History HYDROcodone/APAP 5-325MG [[place] 1 tab PO BID PRN 09/23/18 09/23/18 History 5-325] Multivitamin,Therapeutic [Thera] 1 tab PO DAILY 09/23/18 09/23/18 History Topiramate [Trokendi Xr] 200 mg PO BID 09/23/18 09/23/18 History Venlafaxine HCl [Effexor XR] 75 mg PO HS 09/23/18 09/23/18 History Allergies Allergy/AdvReac Type Severity Reaction Status Date / Time Sulfa (Sulfonamide Allergy Rash/Hives Verified 09/23/18 10:38 Antibiotics) Physical Exam Vitals: Vital Signs Temp Pulse Pulse Resp BP BP Pulse Ox 09/23/18 13:20 97.5 F L 67 16 156/87 98 09/23/18 08:02 97.9 F 78 16 174/93 99 09/23/18 08:00 16 09/23/18 07:19 72 16 164/97 100 09/23/18 04:39 90 20 144/87 98 09/23/18 04:36 22 09/23/18 03:37 98.4 F 108 H 22 132/83 96 Intake and Output 09/23/18 09/23/18 09/23/18 06:59 14:59 22:59 Intake Total 600 Balance 600 Intake: Oral 600 Other: # Voids 1 Weight 77.111 kg GENERAL EXAM: Very pleasant 78-year-old female patient. Alert, active, comfortable in no apparent distress. On room air. HEAD: Normocephalic. EYES: Normal reaction of pupils, equal size. NOSE: Clear with pink turbinates. THROAT: No erythema or exudates. NECK: No masses, no JVD. CHEST: No chest wall deformity. LUNGS: Equal air entry with coarse crackles in the bilateral posterior bases. CVS: S1 and S2 normal with no audible murmur, regular rhythm. ABDOMEN: No hepatosplenomegaly, normal bowel sounds, no guarding or rigidity. SPINE: No scoliosis or deformity SKIN: No rashes CENTRAL NERVOUS SYSTEM: No focal deficits, tone is normal in all 4 extremities. EXTREMITIES: There is no peripheral edema. No clubbing, no cyanosis. Peripheral pulses are intact. Results - Laboratory Findings CBC and BMP: 09/23/18 04:00 09/23/18 04:00 PT/INR, D-dimer D-Dimer 5.05 mg/L FEU (<0.60) H 09/23/18 04:00 Abnormal lab findings: Abnormal Labs 09/23/18 09/23/18 09/23/18 04:00 04:00 04:00 WBC 16.1 H Plt Count 104 L Neutrophils # 13.5 H D-Dimer 5.05 H Sodium 134 L Carbon Dioxide 18 L BUN 27 H Creatinine 1.26 H Glucose 123 H Total Bilirubin 2.3 H AST 54 H - Diagnostic Findings Chest x-ray: image reviewed CT scan - chest: image reviewed (No pulmonary embolus. Subpleural reticular opacities seen throughout both lungs likely representing chronic interstitial lung disease.) Assessment and Plan Assessment: Impression: #1 Atypical right-sided chest pain radiating to the right shoulder of unclear etiology. Initial troponin negative. No significant EKG abnormalities. #2 Dyspnea with chronic cough since May 2018 suspect secondary to chronic interstitial lung disease, rheumatoid lung. #3 Rheumatoid arthritis on methotrexate for greater than 15 years. Currently on Remicade. #4 Hypertension. #5 Hyperlipidemia. #6 Gastroesophageal reflux disease. #7 History of depression. Plan: The patient was seen and evaluated by Dr. Butts. Chest x-ray CAT scan and labs were all reviewed. The patient most likely does have interstitial lung disease secondary to rheumatoid arthritis and 15+ years of methotrexate. The patient's also on Remicade. We'll initiate IV Solu-Medrol. She is currently on ceftriaxone and azithromycin. Remains off methotrexate. We will continue to follow make further recommendations based on her clinical status. She will follow-up in our office post discharge and further investigations will be conducted. I, the cosigning physician, performed a history & physical examination of the patient. Lungs sounds with coarse crackles in the bilateral posterior bases. Maintaining good O2 saturations in the 90s on room air. I discussed the assessment and plan of care with my nurse practitioner, Priscila Ballard. I attest to the above note as dictated by her. Time with Patient: Greater than 30
[2018-09-23] MEDS: methylPREDNISolone SOD SUCCI 125 MG/2 ML VIAL IV SCH ×2 (16:54→23:50)
[2018-09-23] MEDS: HYDROcodone/APAP 5-325MG 1 EACH TAB PO PRN (16:58)
--- NOTE | 2018-09-23 20:53 | HP ---
HISTORY AND PHYSICAL DATE OF ADMISSION: September 23, 2018 DATE OF SERVICE: September 23, 2018 PRESENTING COMPLAINT: Short of breath, tired. HISTORY OF PRESENTING COMPLAINT: This is a very pleasant 78-year-old patient follows with Dr. Calvo and Dr. Merrill, this patient rheumatology. Chronic stable medical conditions include GERD, hypertension, hyperlipidemia, rheumatoid arthritis, obstructive sleep apnea. The patient does come for injections every month. The patient has rheumatoid arthritis that involves her hands, her back, elbow, shoulders. The patient progressively getting more short of breath, easily tired. The patient lives in a two- level home, has a bathroom and bedroom upstairs, finds it very difficult to get up there. Has got a dry cough. No fever, chills. Appetite is dwindled. The patient's son is present at the bedside, helping with the history. Functionally, patient is also declining. REVIEW OF SYSTEMS: CONSTITUTIONAL: Weak and tired. Decreased appetite. HEENT None. RESPIRATORY as above with dry cough. No sputum. CARDIOVASCULAR: None. GASTROINTESTINAL none. GENITOURINARY: None. MUSCULOSKELETAL: Arthritic pain in many joints. DERMATOLOGICAL: None. HEMATOLOGICAL: None. LYMPHATICS: None. PSYCHIATRY: Slightly anxious. NEUROLOGICAL: None. PAST MEDICAL HISTORY: GERD, hyperlipidemia, hypertension, rheumatoid arthritis, obstructive sleep apnea, does not use CPAP. Pulmonary fibrosis. PAST SURGICAL HISTORY: Back surgery, hysterectomy, sinus surgery, left ankle ORIF, left knee arthroscopy, colonoscopy, abdominal wound debridements. SOCIAL HISTORY: Lives alone. Bedroom and bathroom on the 2nd level. No smoking. No alcohol. FAMILY HISTORY: Stroke, hypertension. Father had lung cancer. HOME MEDICATIONS: 1. Toprol-XL 100 mg p.o. daily. 2. Effexor 150 mg p.o. daily. 3. Effexor XR 75 mg at bedtime. 4. Zocor 40 mg at bedtime. 5. Prilosec 20 mg p.o. daily. 6. Multivitamin 1 tablet p.o. daily. 7. Fish oil 1 tablet p.o. daily. 8. Aspirin 81 mg p.o. daily. 9. [place] 5 one tablet p.o. b.i.d. p.r.n.. 10.Robinul 1 mg p.o. b.i.d. 11.Trokendi XR 200 mg b.i.d. 12.Vitamin D 2000 units p.o. daily. 13.Methotrexate 7.5 mg p.o. weekly. ALLERGIES: SULFA. PHYSICAL EXAMINATION: VITAL SIGNS: Temperature 98.4, pulse 108, respiration 22, blood pressure 132/83, pulse ox 96% on room air. GENERAL APPEARANCE: Well built BMI 31.1. Lying in bed, tired appearing. EYES: Pupils are equal. Conjunctivae normal. HEENT: External appearance of nose and ears normal. Oral cavity normal. NECK: JVD not raised. Mass not palpable. RESPIRATORY: Effort increased. LUNGS: Bilateral basal fine crackles. CARDIOVASCULAR: 1st and 2nd sounds normal. No edema. ABDOMEN: Soft, nontender. Liver and spleen not palpable. LYMPHATICS: No lymph nodes palpable in the neck and axilla. PSYCHIATRY: Alert and oriented x3. Mood and affect tired-appearing. NEUROLOGICAL: Pupils equal. Cranial nerves grossly intact. Power and sensation grossly intact. INVESTIGATIONS: White count 16.1, hemoglobin 13.1, potassium hemolyzed, bicarb 18, BUN 27, creatinine 1.26. Chest CT shows evidence of fibrosis. No PE. EKG tracing personally reviewed by me. EKG tracing shows normal sinus rhythm, nonspecific changes. Chest x-ray reports pulmonary fibrosis, questionable infiltrate. ASSESSMENT: 1. Progressive symptoms of pulmonary fibrosis secondary to rheumatoid lung and also the fact that the patient is on methotrexate. The patient has got a dry cough. No sputum production. No fever. No chills. Infiltrates are probably from fibrosis. I doubt the need of antibiotics. Steroids may help. 2. Gastroesophageal reflux disease. 3. Hyperlipidemia. 4. Essential hypertension. 5. Rheumatoid arthritis in multiple joints bilateral. 6. Obesity BMI 31.1. The patient is started on steroids, inhaled steroids were added. Add bronchodilators. The patient was seen by Pulmonary. Antibiotics have been added. I think patient will probably do without antibiotics and switch to p.o. tomorrow. Will discuss with Pulmonary. Care was discussed at length with the patient and son as this condition is rather progressive and relentless. I did talk to the son about getting more dependent care for the mother, that is the patient. The patient understands the same. At this point, patient is actually oxygenating well. MMODL / IJN: [id number] /
[2018-09-23] MEDS: ATORVASTATIN 20 MG TAB PO SCH (21:53)
[2018-09-23] MEDS: VENLAFAXINE HCL ER 75 MG CAP PO SCH (21:53)
[2018-09-23] MEDS: BUDESONIDE 1 MG/2 ML NEBU INHALATION SCH (22:00)
[2018-09-24] MEDS: HYDROcodone/APAP 5-325MG 1 EACH TAB PO PRN ×2 (03:44→22:26)
[2018-09-24] MEDS ORDERED: AZITHROMYCIN 500 MG TAB PO SCH (09:00)
--- NOTE | 2018-09-24 09:05 | XR ---
EXAMINATION TYPE: XR chest 2V DATE OF EXAM: 09/24/2018 COMPARISON: 09/23/2018 HISTORY: 78-year-old female with pneumonia, follow-up exam TECHNIQUE: Frontal and lateral views FINDINGS: Heart normal size. Aorta within normal limits. Patchy interstitial densities are present throughout w ith more focal patchy densities at the left base, slightly increased at the left base. No pleural eff usion. IMPRESSION: Scattered interstitial infiltrates and increasing patchy left basilar atelectasis or infiltrate.
[2018-09-24] MEDS: PIPERACILLIN-TAZOBACTAM 3.375 GM in SODIUM CHLORIDE 0.9% 100 ML IVPB SCH ×3 (09:22→23:20)
[2018-09-24] MEDS: VENLAFAXINE HCL 75 MG TAB PO SCH (09:23)
[2018-09-24] MEDS: GLYCOPYRROLATE 1 MG TAB PO SCH ×2 (09:23→20:36)
[2018-09-24] MEDS: PANTOPRAZOLE 40 MG TABLET PO SCH (09:23)
[2018-09-24] MEDS: MULTIVITAMINS, THERA 1 EACH TAB PO SCH (09:23)
[2018-09-24] MEDS: TOPIRAMATE 100 MG TAB PO SCH ×2 (09:23→20:36)
[2018-09-24] MEDS: ASPIRIN 81 MG PO SCH (09:23)
[2018-09-24] MEDS: CHOLECALCIFEROL 1,000 UNIT TAB PO SCH (09:23)
[2018-09-24] MEDS: methylPREDNISolone SOD SUCCI 125 MG/2 ML VIAL IV SCH (09:23)
[2018-09-24] MEDS: METOPROLOL SUCCINATE (ER) 100 MG TAB.ER.24H PO SCH (09:23)
[2018-09-24] MEDS: MUPIROCIN 2% OINT 22 GM TUBE TOPICAL SCH ×4 (09:25→20:38)
[2018-09-24] MEDS: BUDESONIDE 1 MG/2 ML NEBU INHALATION SCH ×2 (09:37→21:25)
[2018-09-24 10:55] VITALS: BMI 31.1
[2018-09-24] MEDS ORDERED: methylPREDNISolone 4 MG TAB TAPER PO ONE (13:45)
--- NOTE | 2018-09-24 15:23 | P.PN ---
Subjective Progress Note Date: 09/24/18 Principal diagnosis: Dyspnea secondary to rheumatoid lung This is a very pleasant 78-year-old female patient who follows with Dr. Bacon out of [facility] [place]. She has a history of gastroesophageal reflux disease, hyperlipidemia, hypertension, sleep apnea, depression. She also follows with Dr. Lozada for rheumatoid arthritis. She had been on methotrexate for greater than 15 years. She is also on Remicade. She has been having ongoing issues since May 2018 with increasing shortness of breath and a dry nonproductive cough. A computed tomography scan done on 09/10/2018 revealed diffuse bilateral parenchymal fibrosis in the periphery without acute pulmonary process. Considerations for IPF was within the differential. She was actually scheduled to see Dr. Galo 09/26/2018 for a new patient consultation. She presented here to the emergency room early this morning with complaints of right upper chest pain and continued dry nonproductive cough. She has had pain in the right shoulder blade as well. A CT angiogram was performed and pulmonary embolus was ruled out. There is again subpleural reticular opacities seen throughout the lung forrest bilaterally representing chronic interstitial lung disease. She is seen today in consultation on the regular medical floor. She is awake and alert in no acute distress. She is currently resting comfortably i n bed. She is maintaining good O2 saturations in the high 90s on room air. She's been afebrile. Somewhat hypertensive. White count 16.1. Hemoglobin 13.1. Creatinine 1.26. Troponin negative 1. She is having ongoing discomfort in the right upper chest and shoulder blade area. No right upper quadrant pain. The patient is seen today 09/24/2017 in follow-up on the regular medical floor. She is awake and alert in no acute distress. She is breathing easier today as compared to yesterday. She been treated with bronchodilators and steroids. She is maintaining good O2 saturations in the mid 90s on room air. She's been afebrile. Hemodynamically stable. Blood culture is positive for E. coli. She is currently on ceftriaxone and Zosyn. Objective - Vital Signs Vital signs: Vital Signs Temp 97.0 F L 09/24/18 05:49 Pulse 64 09/24/18 09:48 Resp 20 09/24/18 05:49 BP 126/68 09/24/18 05:49 Pulse Ox 96 09/24/18 09:40 Intake & Output 09/23/18 09/24/18 09/24/18 18:59 06:59 18:59 Intake Total 600 240 Balance 600 240 Weight 77.111 kg Intake: Oral 600 240 Other: # Voids 1 3 - Exam GENERAL EXAM: Very pleasant 78-year-old female patient. Alert, active, comfortable in no apparent distress. On room air. HEAD: Normocephalic. EYES: Normal reaction of pupils, equal size. NOSE: Clear with pink turbinates. THROAT: No erythema or exudates. NECK: No masses, no JVD. CHEST: No chest wall deformity. LUNGS: Equal air entry with coarse crackles in the bilateral posterior bases. CVS: S1 and S2 normal with no audible murmur, regular rhythm. ABDOMEN: No hepatosplenomegaly, normal bowel sounds, no guarding or rigidity. SPINE: No scoliosis or deformity SKIN: No rashes CENTRAL NERVOUS SYSTEM: No focal deficits, tone is normal in all 4 extremities. EXTREMITIES: There is no peripheral edema. No clubbing, no cyanosis. Peripheral pulses are intact. - Labs CBC & Chem 7: 09/23/18 04:00 09/23/18 04:00 Labs: Microbiology - Last 24 Hours (Table) 09/23/18 06:55 Blood Culture Gram Stain - Preliminary Blood Blood Culture - Preliminary Escherichia coli 09/23/18 06:55 Blood Culture - Final Blood Assessment and Plan Assessment: Impression: #1 Atypical right-sided chest pain radiating to the right shoulder of unclear etiology. Initial troponin negative. No significant EKG abnormalities. #2 Dyspnea with chronic cough since May 2018 suspect secondary to chronic interstitial lung disease, rheumatoid lung. #3 Rheumatoid arthritis on methotrexate for greater than 15 years. Currently on Remicade. #4 Hypertension. #5 Hyperlipidemia. #6 Gastroesophageal reflux disease. #7 History of depression. #8 Bacteremia secondary to E. coli. Plan: The patient was seen and evaluated by Dr. Butts. She is stable from the pulmonary standpoint he could be discharged home in follow-up with Dr. Galo onc e cleared medically. She does have E. coli bacteremia. We'll start transition her to a Medrol Dosepak. Continue bronchodilators. We will see her on as- needed basis. I, the cosigning physician, performed a history & physical examination of the patient. Lungs sounds with coarse crackles in the bilateral posterior bases. Maintaining good O2 saturations in the 90s on room air. I discussed the assessment and plan of care with my nurse practitioner, Priscila Ballard. I attest to the above note as dictated by her.
[2018-09-24] MEDS: ATORVASTATIN 20 MG TAB PO SCH (20:36)
[2018-09-24] MEDS: VENLAFAXINE HCL ER 75 MG CAP PO SCH (20:36)
--- NOTE | 2018-09-24 21:50 | PN ---
PROGRESS NOTE DATE OF SERVICE: 09/24/2018 PRESENTING COMPLAINT: Tired. INTERVAL HISTORY: This patient presented with cough, has rheumatoid lung, pulmonary fibrosis. Also found to have positive blood cultures, which was somewhat unexpected. The patient feels a bit better today. Breathing is stable. REVIEW OF SYSTEMS: Done for constitutional, cardiovascular, GI, pulmonary; relevant findings as above. CURRENT MEDICATIONS: Reviewed. They include IV ceftriaxone and Medrol Dosepak. PHYSICAL EXAMINATION: Temperature 97, pulse 57, respiration 20, blood pressure 126/60, pulse ox 95% on room air. GENERAL APPEARANCE: Sitting up. Awake. EYES: Pupils equal. Conjunctivae normal. NECK: JVD not raised. Mass not palpable. RESPIRATORY: Effort normal. LUNGS: Basal fine crackles. CARDIOVASCULAR: First and second sounds normal. No edema. ABDOMEN: Soft, non-tender. Liver and spleen not palpable. PSYCHIATRY: Alert and oriented x3. Mood and affect normal. INVESTIGATIONS: Blood culture is positive for E coli. ASSESSMENT: 1. Progressive pulmonary fibrosis with underlying rheumatoid lung. The patient is now on steroids. Doubt pneumonia. 2. Gastroesophageal reflux disease. 3. Hyperlipidemia. 4. Essential hypertension. 5. Rheumatoid arthritis in multiple joints, bilateral. 6. Obesity; body mass index 31.1. 7. Positive blood cultures with Escherichia coli. PLAN: I was surprised about the E coli in the blood. Will get an infectious disease opinion. Patient will be switched over to oral steroids. Care was discussed with the patient. MMODL / IJN: [id number] /
[2018-09-25] MEDS: BUDESONIDE 1 MG/2 ML NEBU INHALATION SCH ×2 (08:02→21:28)
[2018-09-25] MEDS: ASPIRIN 81 MG PO SCH (08:55)
[2018-09-25] MEDS: TOPIRAMATE 100 MG TAB PO SCH ×2 (08:55→20:46)
[2018-09-25] MEDS: CHOLECALCIFEROL 1,000 UNIT TAB PO SCH (08:55)
[2018-09-25] MEDS: PANTOPRAZOLE 40 MG TABLET PO SCH (08:55)
[2018-09-25] MEDS: MULTIVITAMINS, THERA 1 EACH TAB PO SCH (08:55)
[2018-09-25] MEDS: METOPROLOL SUCCINATE (ER) 100 MG TAB.ER.24H PO SCH (08:55)
[2018-09-25] MEDS: GLYCOPYRROLATE 1 MG TAB PO SCH ×2 (08:56→20:46)
[2018-09-25] MEDS: VENLAFAXINE HCL 75 MG TAB PO SCH (08:56)
[2018-09-25] MEDS: methylPREDNISolone 4 MG TAB TAPER PO SCH (08:56)
[2018-09-25 09:57] LABS: Basophils % (A) 0 %; Eosinophils % (A) 0 %; HCT 36.8 % (34.0-46.0); HGB 11.6 gm/dL (11.4-16.0); Hypochromasia Slight; Lymphocytes # (A) 2.6 k/uL (1.0-4.8); Lymphocytes % (A) 17 %; MCH 29.3 pg (25.0-35.0); MCHC 31.4 g/dL (31.0-37.0); MCV 93.2 fL (80.0-100.0); Mean Platelet Volume 9.1; Monocytes # (A) 0.9 k/uL (0-1.0); Monocytes % (A) 6 %; Neutrophils # (A) 11.8 k/uL (1.3-7.7); Neutrophils % (A) 75 %; Platelet Count 148 k/uL (150-450); RBC 3.95 m/uL (3.80-5.40); RDW 13.9 % (11.5-15.5); WBC 15.7 k/uL (3.8-10.6)
[2018-09-25 09:59] LABS: Calcium 9.7 mg/dL (8.4-10.2); Potassium 2.8 mmol/L (3.5-5.1)
[2018-09-25] MEDS: PIPERACILLIN-TAZOBACTAM 3.375 GM in SODIUM CHLORIDE 0.9% 100 ML IVPB SCH (11:55)
--- NOTE | 2018-09-25 12:08 | P.CONS ---
History of Present Illness - Reason for Consult Consult date: 09/25/18 Positive blood culture - History of Present Illness This is a 78-year-old female patient with past medical history significant for rheumatoid arthritis under the care of Dr. Florez and currently on Remicade and methotrexate. Patient's last Remicade infusion was on September 02 and she receives every 6 weeks. Patient currently has had ongoing going increasing shortness of breath with a nonproductive cough is been going on since May but gradually worsening and had an appointment with Dr. Chen is scheduled for the end of this week but due to worsening symptoms along with right upper chest pain, she came into [facility] emergency center for evaluation. She was found to be afebrile, white count 16.1, creatinine 1.26, AST 54, albumin 3.6. Patient underwent an outpatient CAT scan on 09/10/2018 revealed diffuse bilateral parenchymal fibrosis in the periphery without acute pulmonary process. Considerations for IPF was within the differential. CTA was performed on this admission and pulmonary embolus was ruled out. There is subpleural reticular opacities seen throughout the lung forrest bilaterally representing chronic interstitial lung disease. Urine culture came back positive for E. coli and thus this consult was placed. E. coli is pansensitive and patient has been on Zosyn and vancomycin and did receive a dose of azithromycin in the ER. A urinalysis does not appear to have been done but a urine culture is in progress. Patient states that prior to coming into the hospital, she was having increased urinary frequency, dysuria, suprapubic discomfort. She denies having any fever or chills. She states she has about 3-4 urinary tract infections per year. Review of Systems All systems: negative Constitutional: Reports fatigue, Reports poor appetite, Denies chills, Denies fever, Denies sweats Eyes: denies blurred vision, denies pain Ears, nose, mouth and throat: Denies dysphagia, Denies headache, Denies mouth pain, Denies nasal congestion, Denies nasal discharge, Denies sore throat, Denies vertigo Cardiovascular: Reports chest pain, Reports dyspnea on exertion, Reports shortness of breath, Denies leg edema, Denies syncope Respiratory: Reports cough, Reports dyspnea, Denies cough with sputum, Denies ex cessive sputum, Denies hemoptysis, Denies home oxygen, Denies wheezing Gastrointestinal: Reports loss of appetite, Denies abdominal pain, Denies diarrhea, Denies nausea, Denies vomiting Genitourinary: Reports dysuria, Reports urgency, Reports urinary frequency, Denies hematuria Musculoskeletal: Denies frequent falls, Denies gait dysfunction, Denies muscle weakness, Denies myalgias Integumentary: Reports wounds, Denies pruritus, Denies rash Neurological: Denies numbness, Denies weakness Psychiatric: Denies anxiety, Denies depression Endocrine: Denies fatigue, Denies weight change Past Medical History Past Medical History: GERD/Reflux, Hyperlipidemia, Hypertension, Rheumatoid Ar thritis (RA), Sleep Apnea/CPAP/BIPAP Additional Past Medical History / Comment(s): Pulmonary fibrosis, 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 History of Any Multi-Drug Resistant Organisms: MRSA Year Discovered:: Pt states fall 2017 MDRO Source:: abdomin Past Surgical History: Back Surgery, Hysterectomy, Orthopedic Surgery Additional Past Surgical History / Comment(s): Low back surgery, sinus surgery, L ankle ORIF-hardware since removed, L knee arthroscopy, colonoscopy, R breast core biopsy-benign, bilateral lasik eye surgery, abdominal wound debridements Past Anesthesia/Blood Transfusion Reactions: No Reported Reaction Smoking Status: Never smoker Additional Past Alcohol Use History / Comment(s): Patient is a lifelong nonsmoker, no alcohol, marijuana or illicit drug use. Patient lives alone and has 2 dogs in the home. Her ex- is currently taking care of the dogs. She worked for [employer] and is retired. She denies any recent travel. - Past Family History Mother Family Medical History: CVA/TIA, Hypertension Father Family Medical History: Cancer Additional Family Medical History / Comment(s): Father had lung cancer Medications and Allergies Home Medications Medication Instructions Recorded Confirmed Type Aspirin 81 mg PO DAILY 11/11/13 09/23/18 History Ergocalciferol [Vitamin D2 1,000 mg PO DAILY 11/11/13 09/23/18 History (DRISDOL)] Fish Oil/Dha/Epa [Fish Oil 1,200 1 tab PO DAILY 11/11/13 09/23/18 History mg Fish Oil] Methotrexate Sodium [Methotrexate] 7.5 mg PO WEEKLY 11/11/13 09/23/18 History Metoprolol Succinate (ER) [Toprol 100 mg PO DAILY 11/11/13 09/23/18 History XL] Omeprazole [PriLOSEC] 20 mg PO DAILY 11/11/13 09/23/18 History Simvastatin [Zocor] 40 mg PO HS 11/11/13 09/23/18 History Venlafaxine HCl [Effexor] 150 mg PO DAILY 12/21/16 09/23/18 History Glycopyrrolate [Robinul] 1 mg PO BID 09/23/18 09/23/18 History HYDROcodone/APAP 5-325MG [[place] 1 tab PO BID PRN 09/23/18 09/23/18 History 5-325] Multivitamin,Therapeutic [Thera] 1 tab PO DAILY 09/23/18 09/23/18 History Topiramate [Trokendi Xr] 200 mg PO BID 09/23/18 09/23/18 History Venlafaxine HCl [Effexor XR] 75 mg PO HS 09/23/18 09/23/18 History Allergies Allergy/AdvReac Type Severity Reaction Status Date / Time Sulfa (Sulfonamide Allergy Rash/Hives Verified 09/23/18 10:38 Antibiotics) Physical Exam Vitals: Vital Signs Temp Pulse Pulse Resp BP Pulse Ox 09/25/18 08:13 68 09/25/18 08:03 64 09/25/18 05:40 98.4 F 60 18 160/92 95 09/24/18 21:33 68 09/24/18 21:26 68 09/24/18 21:00 97.9 F 58 L 18 145/81 94 L 09/24/18 14:13 97.9 F 63 18 133/72 95 Intake and Output 09/24/18 09/25/18 09/25/18 22:59 06:59 14:59 Intake Total 640 400 Balance 640 400 Intake: Oral 640 400 Other: # Voids 2 3 Gen: This is a obese 78-year-old female. She is resting in bed and appears to be comfortable and in no acute distress. HEENT: Head is atraumatic, normocephalic. Pupils equal, round. Sclerae is anicteric. Conjunctiva pink. Oral mucous members are slightly dry. No thrush noted. NECK: Supple. No JVD. No lymphadenopathy. No thyromegaly. LUNGS: Coarse crackles bilaterally. No accessory muscle usage. No intercostal retractions. HEART: Regular rate and rhythm. No murmur. ABDOMEN: Soft. Bowel sounds are present. No masses. No tenderness. There is one healed lesion to the left and scabbed lesion to the right side. EXTREMITIES: No pedal edema. No calf tenderness. Dorsalis pedis +1 bilaterally. NEUROLOGICAL: Patient is awake, alert and oriented x3. Cranial nerves 2 through 12 are grossly intact. Results Results: Laboratory Results WBC 15.7 k/uL (3.8-10.6) H 09/25/18 09:10 RBC 3.95 m/uL (3.80-5.40) 09/25/18 09:10 Hgb 11.6 gm/dL (11.4-16.0) 09/25/18 09:10 Hct 36.8 % (34.0-46.0) 09/25/18 09:10 MCV 93.2 fL (80.0-100.0) 09/25/18 09:10 MCH 29.3 pg (25.0-35.0) 09/25/18 09:10 MCHC 31.4 g/dL (31.0-37.0) 09/25/18 09:10 RDW 13.9 % (11.5-15.5) 09/25/18 09:10 Plt Count 148 k/uL (150-450) L 09/25/18 09:10 Neutrophils % 75 % 09/25/18 09:10 Lymphocytes % 17 % 09/25/18 09:10 Monocytes % 6 % 09/25/18 09:10 Eosinophils % 0 % 09/25/18 09:10 Basophils % 0 % 09/25/18 09:10 Neutrophils # 11.8 k/uL (1.3-7.7) H 09/25/18 09:10 Lymphocytes # 2.6 k/uL (1.0-4.8) 09/25/18 09:10 Monocytes # 0.9 k/uL (0-1.0) 09/25/18 09:10 Eosinophils # 0.0 k/uL (0-0.7) 09/25/18 09:10 Basophils # 0.0 k/uL (0-0.2) 09/25/18 09:10 Hypochromasia Slight 09/25/18 09:10 D-Dimer 5.05 mg/L FEU (<0.60) H 09/23/18 04:00 Sodium 137 mmol/L (137-145) 09/25/18 09:10 Potassium 2.8 mmol/L (3.5-5.1) L 09/25/18 09:10 Chloride 105 mmol/L (98-107) 09/25/18 09:10 Carbon Dioxide 23 mmol/L (22-30) 09/25/18 09:10 Anion Gap 9 mmol/L 09/25/18 09:10 BUN 30 mg/dL (7-17) H 09/25/18 09:10 Creatinine 1.35 mg/dL (0.52-1.04) H 09/25/18 09:10 Est GFR (CKD-EPI)AfAm 44 (>60 ml/min/1.73 sqM) 09/25/18 09:10 Est GFR (CKD-EPI)NonAf 38 (>60 ml/min/1.73 sqM) 09/25/18 09:10 Glucose 150 mg/dL (74-99) H 09/25/18 09:10 Calcium 9.7 mg/dL (8.4-10.2) 09/25/18 09:10 Magnesium 2.0 mg/dL (1.6-2.3) 09/23/18 04:00 Total Bilirubin 2.3 mg/dL (0.2-1.3) H 09/23/18 04:00 AST 54 U/L (14-36) H 09/23/18 04:00 ALT 15 U/L (9-52) 09/23/18 04:00 Alkaline Phosphatase 95 U/L (38-126) 09/23/18 04:00 Troponin I <0.012 ng/mL (0.000-0.034) 09/23/18 04:00 Total Protein 7.9 g/dL (6.3-8.2) 09/23/18 04:00 Albumin 3.6 g/dL (3.5-5.0) 09/23/18 04:00 CBC & Chem 7: 09/25/18 09:10 09/25/18 09:10 Labs: Abnormal Lab Results - Last 24 Hours (Table) 09/25/18 09/25/18 Range/Units 09:10 09:10 WBC 15.7 H (3.8-10.6) k/uL Plt Count 148 L (150-450) k/uL Neutrophils # 11.8 H (1.3-7.7) k/uL Potassium 2.8 L (3.5-5.1) mmol/L BUN 30 H (7-17) mg/dL Creatinine 1.35 H (0.52-1.04) mg/dL Glucose 150 H (74-99) mg/dL Microbiology - Last 24 Hours (Table) 09/23/18 06:55 Blood Culture Gram Stain - Final Blood Blood Culture - Final Escherichia coli 09/24/18 15:01 Urine Culture - Preliminary Urine,Clean Catch Assessment and Plan Plan: This is a 78-year-old female who presents to hospital with chest pain, shortness of breath secondary to interstitial lung disease and rheumatic lung. Patient is found to be E. coli bacteremic and underlying etiology most likely urinary tract infection. Urine culture is in progress although urinalysis is not available. We have ordered repeat blood culture. E. coli is pansensitive and Zosyn will be discontinued and can continue Rocephin only. Continue supportive care. Further recommendations as patient progresses. The above dictated assessment and findings were discussed with Dr. Major. The impression and plan of care have been directed as dictated. Lilliana Culver nurse practitioner acting as scribe for Dr. Major.
[2018-09-25] MEDS: MUPIROCIN 2% OINT 22 GM TUBE TOPICAL SCH ×3 (18:39→20:50)
--- NOTE | 2018-09-25 18:49 | PN ---
PROGRESS NOTE DATE OF SERVICE: 09/25/2018 This 78-year-old woman was admitted with shortness of breath as well as cough and sputum is being closely monitored at this time. The patient is found to have E coli bacteremia in the urine and the patient is on broad spectrum IV antibiotics. No chest pain. No palpitations. No fever. EXAM: Alert and oriented times three. Pulse 69. Blood pressure 143/77, respiration 20, temperature 96.4, pulse ox 97% on room air. HEENT: Conjunctivae normal. Oral mucosa moist. Neck is no jugular venous distention. No carotid bruit. No lymph node enlargement. Cardiovascular: S1, S2 muffled. Respiratory: Breath sounds diminished in the bases. A few scattered rhonchi. No crackles. Abdomen is soft, nontender. Legs no edema. No swelling. Central nervous system: No focal deficits. LABS: At this time WBC 15.7, sodium 137, potassium 2.8. Chest CTA shows no pulmonary embolism, subpleural opacities, nonobstructing calculus in the right kidney. Other labs are noted. ASSESSMENT: 1. 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 2. Gastroesophageal reflux disease. 3. E coli bacteremia. 4. Hyperlipidemia. 5. Hypertension. 6. Rheumatoid arthritis with multiple joints bilateral. 7. Obesity with body mass of 31.1. 8. Increased WBC. 9. Increased creatinine with possibly chronic kidney disease. RECOMMENDATIONS AND DISCUSSION: In this 78-year-old woman who presented with multiple complex medical issues. We will continue to monitor, continue symptomatic treatment. Otherwise, continue the broad- spectrum IV antibiotics. The patient is on Rocephin IV. The repeat cultures are negative so far. We will continue to monitor along with Infectious Disease. Guarded prognosis because of multiple complex medical issues. Further recommendations to follow. See orders for details. I would also recommend a CT scan of the abdomen and pelvis without any IV contrast to complete the workup as well. See orders for details. MMODL / IJN: [id number] /
[2018-09-25] MEDS: ATORVASTATIN 20 MG TAB PO SCH (20:46)
[2018-09-25] MEDS: VENLAFAXINE HCL ER 75 MG CAP PO SCH (20:46)
[2018-09-25] MEDS: HYDROcodone/APAP 5-325MG 1 EACH TAB PO PRN (20:47)
--- NOTE | 2018-09-25 23:13 | P.CON ---
Consult Note - . Consult date: 09/25/18 Assessment/Plan:: This is a 78-year-old female patient with past medical history significant for rheumatoid arthritis under the care of Dr. Florez and currently on Remicade and methotrexate. Patient's last Remicade infusion was on September 02 and she re ceives every 6 weeks. Patient currently has had ongoing going increasing shortness of breath with a nonproductive cough is been going on since May but gradually worsening and had an appointment with Dr. Chen is scheduled for the end of this week but due to worsening symptoms along with right upper chest pain, she came into [facility] emergency center for evaluation. She was found to be afebrile, white count 16.1, creatinine 1.26, AST 54, albumin 3.6. Patient underwent an outpatient CAT scan on 09/10/2018 revealed diffuse bilateral parenchymal fibrosis in the periphery without acute pulmonary process. Considerations for IPF was within the differential. CTA was performed on this admission and pulmonary embolus was ruled out. There is subpleural reticular opacities seen throughout the lung forrest bilaterally representing chronic interstitial lung disease. Urine culture came back positive for E. coli and thus this consult was placed. E. coli is pansensitive and patient has been on Zosyn and vancomycin and did receive a dose of azithromycin in the ER. A urinalysis does not appear to have been done but a urine culture is in progress. Patient states that prior to coming into the hospital, she was having increased urinary frequency, dysuria, suprapubic discomfort. She denies having any fever or chills. She states she has about 3-4 urinary tract infections per year.Please see the consult note as dictated by nurse practitioner Lilliana Abiola. 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 Currently on Remicade therapy for her rheumatoid arthritis. She's been doing well but has developed evidence of infection from urinary system and sepsis and has been admitted. Cultures are now available and she has an E. coli that is susceptible and constantly antibiotic therapy is the escalated to Rocephin at this time. She responds over the next year. I will determine the transition to her course of antibiotic therapy at discharge. She has a small ulceration of the right lower abdominal wall for which mupirocin and an Opteform dressing will be applied over to try to help this heal up. Remicade will need to be held until she has clearance of the current infection. I agree with evaluation, assessment and plan as dictated by nurse practitioner Mrs. Lilliana Culver.
[2018-09-26] MEDS: BUDESONIDE 1 MG/2 ML NEBU INHALATION SCH ×2 (07:10→19:21)
[2018-09-26] MEDS: IOPAMIDOL-300 CONTRAST 30 ML VIAL (ORAL USE) PO PRN ×2 (07:20→08:18)
[2018-09-26] MEDS: MUPIROCIN 2% OINT 22 GM TUBE TOPICAL SCH ×3 (07:23→20:33)
[2018-09-26] MEDS: PANTOPRAZOLE 40 MG TABLET PO SCH (07:24)
[2018-09-26 09:14] LABS: Basophils % (A) 0 %; Eosinophils # (A) 0.1 k/uL (0-0.7); Eosinophils % (A) 1 %; HCT 39.1 % (34.0-46.0); HGB 12.3 gm/dL (11.4-16.0); Lymphocytes # (A) 2.1 k/uL (1.0-4.8); Lymphocytes % (A) 19 %; MCH 28.5 pg (25.0-35.0); MCHC 31.6 g/dL (31.0-37.0); MCV 90.2 fL (80.0-100.0); Mean Platelet Volume 8.4; Monocytes % (A) 9 %; Neutrophils # (A) 7.2 k/uL (1.3-7.7); Neutrophils % (A) 66 %; Platelet Count 149 k/uL (150-450); RBC 4.33 m/uL (3.80-5.40); RDW 13.6 % (11.5-15.5); WBC 10.8 k/uL (3.8-10.6)
[2018-09-26] MEDS: methylPREDNISolone 4 MG TAB TAPER PO SCH (09:16)
[2018-09-26] MEDS: ASPIRIN 81 MG PO SCH (09:16)
[2018-09-26] MEDS: GLYCOPYRROLATE 1 MG TAB PO SCH ×2 (09:16→20:33)
[2018-09-26] MEDS: TOPIRAMATE 100 MG TAB PO SCH ×2 (09:16→20:33)
[2018-09-26] MEDS: MULTIVITAMINS, THERA 1 EACH TAB PO SCH (09:16)
[2018-09-26] MEDS: CHOLECALCIFEROL 1,000 UNIT TAB PO SCH (09:16)
[2018-09-26] MEDS: VENLAFAXINE HCL 75 MG TAB PO SCH (09:16)
[2018-09-26] MEDS: METOPROLOL SUCCINATE (ER) 100 MG TAB.ER.24H PO SCH (09:16)
[2018-09-26 09:20] LABS: Calcium 9.6 mg/dL (8.4-10.2)
--- NOTE | 2018-09-26 09:47 | CT ---
EXAMINATION TYPE: CT abdomen pelvis wo con DATE OF EXAM: 09/26/2018 HISTORY: e coli bacteremia, generalized pain CT DLP: 996 mGycm. Automated Exposure Control for Dose Reduction was Utilized. TECHNIQUE: CT scan of the abdomen and pelvis is performed with oral but without IV contrast. COMPARISON: CT abdomen and pelvis March 24, 2014 FINDINGS: Within the limitations of a non-contrast study, the following observations are made. LUNG BASES: There is peripheral reticulation and bibasilar linear scarring redemonstrated. Heart size is stable and upper limits of normal LIVER/GB: Dependent density in gallbladder could reflect small stones and/or gallbladder sludge new f rom prior, favor vicarious excretion from recent CTA chest study. PANCREAS: No significant abnormality is seen. SPLEEN: A few small splenules in the splenic hilum are present. ADRENALS: No significant abnormality is seen. KIDNEYS: There is new 3 mm calculus upper pole right kidney axial image 30. Some cortical thinning up per pole left kidney is present. No hydronephrosis or obstructing ureteral calculi identified. New mi ld perinephric fat stranding right kidney is present, nonspecific finding. No intraluminal calculus i n poorly distended bladder. Scattered right-sided pelvic phleboliths noted. Mild fullness of right re nal pelvis without calyceal dilatation or distal hydroureter noted. BOWEL: Small hiatal hernia is slightly larger from prior study. Oral contrast only reaches proximal i valerio loops in the pelvis. There is no suspicious small or large bowel dilatation seen however. Some d iverticula in the left and sigmoid colon are present without CT evidence for acute diverticulitis GENITAL ORGANS: Uterus is surgically absent or markedly atrophic. LYMPH NODES: No greater than 1cm abdominal or pelvic lymph nodes are appreciated. OSSEOUS STRUCTURES: Underlying levoconvex scoliosis is redemonstrated. Spine is straightened with mod erate to severe multilevel spurring and disc space narrowing. There is moderate to severe axial joint space loss and acetabular spurring in both hips. There is grade 1 anterolisthesis of L4 on L5 and L3 on L4. OTHER: No significant additional abnormality is seen. IMPRESSION: No well-formed fluid collection or abscess. New mild right-sided perinephric fat strandin g, this is nonspecific finding, differential includes renal infection however. Correlate clinically.
[2018-09-26] MEDS ORDERED: Potassium Replacement Protocol 1 EACH MISC MISCELLANE PRN (10:28)
[2018-09-26] MEDS: POTASSIUM CHLORIDE ER 20 MEQ TAB.ER PO SCH ×2 (10:38→12:41)
--- NOTE | 2018-09-26 15:38 | PN ---
PROGRESS NOTE DATE OF SERVICE: 09/26/2018 This 78-year-old woman who was admitted with pulmonary fibrosis and possible rheumatoid lung is being closely monitored. The patient apparently is mildly confused. The patient has got polysensitive E coli grown from the culture. Exact etiology is unknown at this time. CT scan of the abdomen was done which showed some perinephric stranding. Past medical history reviewed. REVIEW OF SYSTEMS: CARDIOVASCULAR SYSTEM: No angina, palpitations. RESPIRATORY SYSTEM: As mentioned earlier. GI: As mentioned earlier. : No dysuria or retention. NERVOUS SYSTEM: No numbness, weakness. Otherwise as mentioned earlier. CURRENT MEDICATIONS: Reviewed. They include: 1. [place] 5 mg b.i.d. p.r.n. 2. Aspirin 81 mg p.o. daily. 3. Lipitor 20 mg p.o. at bedtime. 4. Pulmicort 1 mg b.i.d. 5. Rocephin 1 gram IV daily. 6. Vitamin D3 1000 daily. 7. Robinul 1 mg p.o. b.i.d. 8. Medrol Dosepak daily. 9. Toprol-XL 100 mg p.o. daily. 10.Replacement protocols. 11.Bactroban. 12.Protonix 40 mg p.o. daily. 13.Topamax 200 mg b.i.d. 14.Effexor XR 75 mg at bedtime. 15.Effexor 150 mg each morning. PHYSICAL EXAMINATION: Patient is alert and oriented x2. Pulse 65, blood pressure 160/82, respiration 16, temperature 97 degrees, pulse ox 97% on room air. HEENT: Conjunctivae normal. NECK: No jugular venous distention. CARDIOVASCULAR SYSTEM: S1, S2 muffled. RESPIRATORY SYSTEM: Breath sounds diminished at the bases. A few scattered rhonchi and crackles. ABDOMEN: Soft, non-tender. LEGS: No edema. No swelling. NERVOUS SYSTEM: Higher functions as mentioned earlier. Moves all 4 limbs. No focal motor or sensory deficit. LYMPHATICS: No lymph node palpable in neck, axillae or groin. JOINTS: No active deforming arthropathy. LABS: WBC 10.8 and platelets are 149. Sodium 137, potassium 3. Creatinine is 1.24. ASSESSMENT: 1. 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 2. Change in mental status, possible acute delirium. 3. Gastroesophageal reflux disease. 4. Escherichia coli bacteremia. 5. Hyperlipidemia. 6. Hypertension. 7. Rheumatoid arthritis in multiple joints bilaterally. 8. Obesity with a body mass index of 31.1. 9. Increased white count. 10.Increased creatinine with possible chronic kidney disease. 11.Possible urinary tract infection. RECOMMENDATIONS AND DISCUSSION: In this 78-year-old woman who presented with multiple complex medical issues, we will monitor the patient closely, continue the current management, continue symptomatic treatment. Otherwise at this time I recommend continuing IV antibiotics. Repeat cultures. I would also recommend continuing with DVT prophylaxis. PT/OT evaluation. Guarded prognosis because of multiple complex medical issues. Further recommendations to follow. MMODL / IJN: [id number] /
[2018-09-26 17:32] LABS: Amorphous Sediment,Urine Occasional /hpf; Appearance,Urine Clear (Clear); Bilirubin,Urine Negative (Negative); Blood,Urine Moderate (Negative); Color,Urine Yellow; Glucose,Urine (UA) Negative (Negative); Ketones,Urine Negative (Negative); Leukocyte Esterase,Urine Trace (Negative); Mucus,Urine Rare /hpf; Nitrite,Urine Negative (Negative); Protein,Urine Trace (Negative); RBC,Urine >182 /hpf (0-5); Specific Gravity,Urine 1.009 (1.001-1.035); Squamous Epithelial Cell,Urine <1 /hpf (0-4); Urobilinogen,Urine <2.0 mg/dL (<2.0); WBC,Urine 7 /hpf (0-5)
[2018-09-26] MEDS: VENLAFAXINE HCL ER 75 MG CAP PO SCH (20:33)
[2018-09-26] MEDS: ATORVASTATIN 20 MG TAB PO SCH (20:33)
[2018-09-26] MEDS: HEPARIN SODIUM,PORCINE 5,000 UNIT/ML 1 ML VIAL SQ SCH (20:33)
--- NOTE | 2018-09-26 23:00 | P.PN ---
Subjective Progress Note Date: 09/26/18 This is a 78-year-old female patient with past medical history significant for rheumatoid arthritis under the care of Dr. Florez and currently on Remicade and methotrexate. Patient's last Remicade infusion was on September 02 and she receives every 6 weeks. Patient currently has had ongoing going increasing shortness of breath with a nonproductive cough is been going on since May but gradually worsening and had an appointment with Dr. Chen is scheduled for the end of this week but due to worsening symptoms along with right upper chest pain, she came into [facility] emergency center for evaluation. She was found to be afebrile, white count 16.1, creatinine 1.26, AST 54, alb umin 3.6. Patient underwent an outpatient CAT scan on 09/10/2018 revealed diffuse bilateral parenchymal fibrosis in the periphery without acute pulmonary process. Considerations for IPF was within the differential. CTA was performed on this admission and pulmonary embolus was ruled out. There is subpleural reticular opacities seen throughout the lung forrest bilaterally representing chronic interstitial lung disease. Urine culture came back positive for E. coli and thus this consult was placed. E. coli is pansensitive and patient has been on Zosyn and vancomycin and did receive a dose of azithromycin in the ER. A urinalysis does not appear to have been done but a urine culture is in progress. Patient states that prior to coming into the hospital, she was having increased urinary frequency, dysuria, suprapubic discomfort. She denies having any fever or chills. She states she has about 3-4 urinary tract infections per year. 09/26/2018 the patient is showing some improvement in the last day. She is without new acute complaints. Tolerating antibiotic therapy well. Her nausea or emesis. No shortness of breath. Objective - Vital Signs Vital signs: Vital Signs Temp 97.3 F L 09/26/18 22:04 Pulse 68 09/26/18 22:04 Resp 20 09/26/18 22:04 BP 166/88 09/26/18 22:04 Pulse Ox 98 09/26/18 22:04 Intake & Output 09/26/18 09/26/18 09/27/18 06:59 18:59 06:59 Intake Total 250 120 Balance 250 120 Intake: Oral 250 120 Other: Voiding Method Toilet # Voids 4 2 2 - Exam Gen: This is a obese 78-year-old female. She is resting in bed and appears to be comfortable and in no acute distress. HEENT: Head is atraumatic, normocephalic. Pupils equal, round. Sclerae is anicteric. Conjunctiva pink. Oral mucous members are slightly dry. No thrush noted. NECK: Supple. No JVD. No lymphadenopathy. No thyromegaly. LUNGS: Coarse crackles bilaterally. No accessory muscle usage. No intercostal retractions. HEART: Regular rate and rhythm. No murmur. ABDOMEN: Soft. Bowel sounds are present. No masses. No tenderness. There is one healed lesion to the left and scabbed lesion to the right side. EXTREMITIES: No pedal edema. No calf tenderness. Dorsalis pedis +1 bilaterally. NEUROLOGICAL: Patient is awake, alert and oriented x3. - Labs CBC & Chem 7: 09/26/18 08:38 09/26/18 15:02 Labs: Abnormal Lab Results - Last 24 Hours (Table) 09/26/18 09/26/18 09/26/18 Range/Units 08:38 08:38 Unknown WBC 10.8 H (3.8-10.6) k/uL Plt Count 149 L (150-450) k/uL Potassium 3.0 L (3.5-5.1) mmol/L BUN 23 H (7-17) mg/dL Creatinine 1.24 H (0.52-1.04) mg/dL Glucose 108 H (74-99) mg/dL Urine Protein Trace H (Negative) Urine Blood Moderate H (Negative) Ur Leukocyte Esterase Trace H (Negative) Urine RBC >182 H (0-5) /hpf Urine WBC 7 H (0-5) /hpf Amorphous Sediment Occasional H (None) /hpf Urine Mucus Rare H (None) /hpf Microbiology - Last 24 Hours (Table) 09/25/18 10:10 Blood Culture - Preliminary Blood No Growth after 24 hours 09/24/18 15:01 Urine Culture - Final Urine,Clean Catch Laboratory Results WBC 10.8 k/uL (3.8-10.6) H 09/26/18 08:38 RBC 4.33 m/uL (3.80-5.40) 09/26/18 08:38 Hgb 12.3 gm/dL (11.4-16.0) 09/26/18 08:38 Hct 39.1 % (34.0-46.0) 09/26/18 08:38 MCV 90.2 fL (80.0-100.0) 09/26/18 08:38 MCH 28.5 pg (25.0-35.0) 09/26/18 08:38 MCHC 31.6 g/dL (31.0-37.0) 09/26/18 08:38 RDW 13.6 % (11.5-15.5) 09/26/18 08:38 Plt Count 149 k/uL (150-450) L 09/26/18 08:38 Neutrophils % 66 % 09/26/18 08:38 Lymphocytes % 19 % 09/26/18 08:38 Monocytes % 9 % 09/26/18 08:38 Eosinophils % 1 % 09/26/18 08:38 Basophils % 0 % 09/26/18 08:38 Neutrophils # 7.2 k/uL (1.3-7.7) 09/26/18 08:38 Lymphocytes # 2.1 k/uL (1.0-4.8) 09/26/18 08:38 Monocytes # 1.0 k/uL (0-1.0) 09/26/18 08:38 Eosinophils # 0.1 k/uL (0-0.7) 09/26/18 08:38 Basophils # 0.0 k/uL (0-0.2) 09/26/18 08:38 Hypochromasia Slight 09/25/18 09:10 D-Dimer 5.05 mg/L FEU (<0.60) H 09/23/18 04:00 Sodium 137 mmol/L (137-145) 09/26/18 08:38 Potassium 3.8 mmol/L (3.5-5.1) 09/26/18 15:02 Chloride 105 mmol/L (98-107) 09/26/18 08:38 Carbon Dioxide 23 mmol/L (22-30) 09/26/18 08:38 Anion Gap 9 mmol/L 09/26/18 08:38 BUN 23 mg/dL (7-17) H 09/26/18 08:38 Creatinine 1.24 mg/dL (0.52-1.04) H 09/26/18 08:38 Est GFR (CKD-EPI)AfAm 48 (>60 ml/min/1.73 sqM) 09/26/18 08:38 Est GFR (CKD-EPI)NonAf 42 (>60 ml/min/1.73 sqM) 09/26/18 08:38 Glucose 108 mg/dL (74-99) H 09/26/18 08:38 Calcium 9.6 mg/dL (8.4-10.2) 09/26/18 08:38 Magnesium 2.1 mg/dL (1.6-2.3) 09/26/18 08:38 Total Bilirubin 2.3 mg/dL (0.2-1.3) H 09/23/18 04:00 AST 54 U/L (14-36) H 09/23/18 04:00 ALT 15 U/L (9-52) 09/23/18 04:00 Alkaline Phosphatase 95 U/L (38-126) 09/23/18 04:00 Troponin I <0.012 ng/mL (0.000-0.034) 09/23/18 04:00 Total Protein 7.9 g/dL (6.3-8.2) 09/23/18 04:00 Albumin 3.6 g/dL (3.5-5.0) 09/23/18 04:00 Urine Color Yellow 09/26/18 Unknown Urine Appearance Clear (Clear) 09/26/18 Unknown Urine pH 8.0 (5.0-8.0) 09/26/18 Unknown Ur Specific [place] 1.009 (1.001-1.035) 09/26/18 Unknown Urine Protein Trace (Negative) H 09/26/18 Unknown Urine Glucose (UA) Negative (Negative) 09/26/18 Unknown Urine Ketones Negative (Negative) 09/26/18 Unknown Urine Blood Moderate (Negative) H 09/26/18 Unknown Urine Nitrite Negative (Negative) 09/26/18 Unknown Urine Bilirubin Negative (Negative) 09/26/18 Unknown Urine Urobilinogen <2.0 mg/dL (<2.0) 09/26/18 Unknown Ur Leukocyte Esterase Trace (Negative) H 09/26/18 Unknown Urine RBC >182 /hpf (0-5) H 09/26/18 Unknown Urine WBC 7 /hpf (0-5) H 09/26/18 Unknown Ur Squamous Epith Cells <1 /hpf (0-4) 09/26/18 Unknown Amorphous Sediment Occasional /hpf (None) H 09/26/18 Unknown Urine Mucus Rare /hpf (None) H 09/26/18 Unknown Microbiology 09/25/18 10:10 Blood Blood Culture - Preliminary No Growth after 24 hours 09/24/18 15:01 Urine,Clean Catch Urine Culture - Final 09/23/18 06:55 Blood Blood Culture Gram Stain - Final 09/23/18 06:55 Blood Blood Culture - Final Escherichia coli 09/23/18 06:55 Blood Blood Culture - Final Assessment and Plan (1) Ulcer of abdomen wall with fat layer exposed Current Visit: No Status: Acute Code(s): L98.492 - NON-PRS CHRONIC ULCER OF SKIN OF SITES W FAT LAYER EXPOSED SNOMED Code(s): 36497151 (2) E. 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 Currently on Remicade therapy for her rheumatoid arthritis. She's been doing well but has developed evidence of infection from urinary system and sepsis and has been admitted. Cultures are now available and she has an E. coli that is susceptible and constantly antibiotic therapy is the escalated to Rocephin at this time. She responds over the next year. I will determine the transition to her course of antibiotic therapy at discharge. She has a small ulceration of the right lower abdominal wall for which mupirocin and an Optiform dressing will be applied over to try to help this heal up. Remicade will need to be held until she has clearance of the current infection. 09/26/2018 patient is showing some improvement with the treatment of the underlying E. coli sepsis. Continue fluids and antibiotic therapy with Rocephin. When she is improved and ready for discharge to home should be able to transition to oral ciprofloxacin to complete her course of treatment for the current urinary infection and sepsis. Current Visit: Yes Status: Acute Code(s): A41.51 - SEPSIS DUE TO ESCHERICHIA COLI [E. COLI] SNOMED Code(s): 427371851
[2018-09-27] MEDS: METOPROLOL SUCCINATE (ER) 100 MG TAB.ER.24H PO SCH (07:18)
[2018-09-27] MEDS: MULTIVITAMINS, THERA 1 EACH TAB PO SCH (07:18)
[2018-09-27] MEDS: CHOLECALCIFEROL 1,000 UNIT TAB PO SCH (07:18)
[2018-09-27] MEDS: ASPIRIN 81 MG PO SCH (07:18)
[2018-09-27] MEDS: TOPIRAMATE 100 MG TAB PO SCH ×2 (07:18→20:19)
[2018-09-27] MEDS: PANTOPRAZOLE 40 MG TABLET PO SCH (07:18)
[2018-09-27] MEDS: HEPARIN SODIUM,PORCINE 5,000 UNIT/ML 1 ML VIAL SQ SCH ×2 (07:19→20:17)
[2018-09-27] MEDS: GLYCOPYRROLATE 1 MG TAB PO SCH ×2 (07:19→20:18)
[2018-09-27] MEDS: methylPREDNISolone 4 MG TAB TAPER PO SCH (07:19)
[2018-09-27] MEDS: VENLAFAXINE HCL 75 MG TAB PO SCH (07:20)
[2018-09-27] MEDS: MUPIROCIN 2% OINT 22 GM TUBE TOPICAL SCH ×3 (07:21→20:20)
[2018-09-27] MEDS: BUDESONIDE 1 MG/2 ML NEBU INHALATION SCH ×2 (07:48→19:05)
[2018-09-27 10:47] LABS: Basophils % (A) 0 %; Eosinophils # (A) 0.2 k/uL (0-0.7); Eosinophils % (A) 2 %; HCT 39.8 % (34.0-46.0); HGB 12.6 gm/dL (11.4-16.0); Lymphocytes # (A) 2.2 k/uL (1.0-4.8); Lymphocytes % (A) 18 %; MCH 28.3 pg (25.0-35.0); MCHC 31.8 g/dL (31.0-37.0); MCV 88.9 fL (80.0-100.0); Mean Platelet Volume 7.7; Monocytes # (A) 0.9 k/uL (0-1.0); Monocytes % (A) 7 %; Neutrophils # (A) 8.6 k/uL (1.3-7.7); Neutrophils % (A) 70 %; Platelet Count 173 k/uL (150-450); RBC 4.47 m/uL (3.80-5.40); RDW 13.6 % (11.5-15.5); WBC 12.3 k/uL (3.8-10.6)
[2018-09-27 10:52] LABS: Calcium 9.5 mg/dL (8.4-10.2); Potassium 3.4 mmol/L (3.5-5.1)
[2018-09-27] MEDS: POTASSIUM CHLORIDE ER 20 MEQ TAB.ER PO SCH ×2 (11:24→12:24)
[2018-09-27] MEDS: VENLAFAXINE HCL ER 75 MG CAP PO SCH (20:18)
[2018-09-27] MEDS: ATORVASTATIN 20 MG TAB PO SCH (20:18)
[2018-09-27] MEDS: OSELTAMIVIR 60 MG/10 ML ORAL SYRINGE PO SCH (20:19)
--- NOTE | 2018-09-27 20:51 | PN ---
PROGRESS NOTE DATE OF SERVICE: 09/27/2018 This 78-year-old woman who was admitted with pulmonary fibrosis, rheumatoid arthritis, also having some fever and some change in mental status and abdominal pelvis CAT scan was done today which showed no acute findings. Right-sided perinephric stranding was noted. The patient had E coli, UTI. PAST MEDICAL HISTORY: Past medical history reviewed. PHYSICAL EXAM: Patient is alert and oriented x1. Pulse 75, blood pressure 150/84, respiration 18, temperature 97.2, pulse ox 99% on room air. HEENT: Conjunctivae normal. Neck is no jugular venous distention. CARDIOVASCULAR: S1, S2 muffled. Respirations: Breath sounds diminished in the bases. A few scattered rhonchi and crackles. Abdomen is soft, nontender. No mass palpable. Legs are no edema, no swelling. LABS: WBC 12.2, sodium 130, potassium 3.4. ASSESSMENT: 1. 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 2. Acute influenza A. 3. Change in mental status possible acute delirium. 4. Gastroesophageal reflux disease. 5. E coli bacteremia possibly from urinary source with perinephric stranding in the CT scan. 6. Hyperlipidemia. 7. Hypertension. 8. Rheumatoid arthritis with multiple joints bilateral. 9. Obesity with body mass index of 31.1. 10.Increased WBC. 11.Increased creatinine with possibly chronic kidney disease. 12.Possible urinary tract infection. RECOMMENDATIONS AND DISCUSSION: I recommend to continue current medications, symptomatic treatment, management, continue with antibiotics. Continue rest of medications. We will add Tamiflu to the current regimen. Otherwise, Tamiflu to be adjusted with renal function. Otherwise, guarded prognosis because of multiple complex medical issues. Further recommendations to follow. Isolation. Closely follow with Infectious Disease. Further recommendations to follow. MMODL / IJN: [id number] /
[2018-09-28] MEDS: HYDROcodone/APAP 5-325MG 1 EACH TAB PO PRN (01:40)
[2018-09-28] MEDS: TOPIRAMATE 100 MG TAB PO SCH ×2 (08:06→20:22)
[2018-09-28] MEDS: METOPROLOL SUCCINATE (ER) 100 MG TAB.ER.24H PO SCH (08:06)
[2018-09-28] MEDS: CHOLECALCIFEROL 1,000 UNIT TAB PO SCH (08:06)
[2018-09-28] MEDS: PANTOPRAZOLE 40 MG TABLET PO SCH (08:06)
[2018-09-28] MEDS: HEPARIN SODIUM,PORCINE 5,000 UNIT/ML 1 ML VIAL SQ SCH ×2 (08:06→20:22)
[2018-09-28] MEDS: ASPIRIN 81 MG PO SCH (08:06)
[2018-09-28] MEDS: MULTIVITAMINS, THERA 1 EACH TAB PO SCH (08:06)
[2018-09-28] MEDS: GLYCOPYRROLATE 1 MG TAB PO SCH ×2 (08:07→20:22)
[2018-09-28] MEDS: methylPREDNISolone 4 MG TAB TAPER PO SCH (08:07)
[2018-09-28] MEDS: OSELTAMIVIR 60 MG/10 ML ORAL SYRINGE PO SCH ×2 (08:08→20:22)
[2018-09-28] MEDS: VENLAFAXINE HCL 75 MG TAB PO SCH (08:08)
[2018-09-28] MEDS: BUDESONIDE 1 MG/2 ML NEBU INHALATION SCH ×2 (08:23→20:46)
[2018-09-28 12:39] LABS: Calcium 9.8 mg/dL (8.4-10.2); Potassium 4.3 mmol/L (3.5-5.1)
[2018-09-28 12:48] LABS: Basophils % (A) 0 %; Eosinophils # (A) 0.3 k/uL (0-0.7); Eosinophils % (A) 3 %; HCT 40.7 % (34.0-46.0); HGB 12.8 gm/dL (11.4-16.0); Lymphocytes # (A) 2.2 k/uL (1.0-4.8); Lymphocytes % (A) 19 %; MCH 28.2 pg (25.0-35.0); MCHC 31.4 g/dL (31.0-37.0); MCV 89.7 fL (80.0-100.0); Mean Platelet Volume 7.5; Monocytes # (A) 0.6 k/uL (0-1.0); Monocytes % (A) 5 %; Neutrophils # (A) 8.6 k/uL (1.3-7.7); Neutrophils % (A) 71 %; Platelet Count 212 k/uL (150-450); RBC 4.53 m/uL (3.80-5.40); RDW 13.7 % (11.5-15.5); WBC 12.1 k/uL (3.8-10.6)
[2018-09-28] MEDS: MUPIROCIN 2% OINT 22 GM TUBE TOPICAL SCH ×3 (17:45→20:23)
[2018-09-28] MEDS: VENLAFAXINE HCL ER 75 MG CAP PO SCH (20:22)
[2018-09-28] MEDS: ATORVASTATIN 20 MG TAB PO SCH (20:22)
[2018-09-28 20:31] VITALS: RESP 18
--- NOTE | 2018-09-28 21:52 | PN ---
PROGRESS NOTE DATE OF SERVICE: 09/28/2018 This 78-year-old woman was admitted to the hospital with pulmonary fibrosis and possible pneumonia, is being closely monitored. Patient also had some change in mental status also. Patient also found to be influenza A positive. Also patient is being closely monitored. Patient on broad-spectrum IV antibiotics also. No chest pain. No palpitations. No fever. EXAM: Alert and oriented x2. Pulse 77, blood pressure 167/92, respirations 16, temperature 97 degrees, pulse ox 98% on room air. HEENT: Conjunctivae normal. Oral mucosa moist. Neck is no jugular venous distention. No carotid bruit. No lymph node enlargement. Cardiovascular system: S1, S2 muffled. RESPIRATORY: Breath sounds diminished in the bases. A few scattered rhonchi and crackles. Abdomen is soft, nontender. CENTRAL NERVOUS SYSTEM: No focal deficits. LABORATORY DATA: WBC 12.9, hemoglobin 12.8, sodium 137, potassium 4.3. Influenza A is positive. ASSESSMENT: 1. 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 2. Acute influenza A. 3. Change in mental status, acute delirium. 4. Gastroesophageal reflux disease. 5. E coli bacteremia possibly from a urinary source with perinephric stranding in the CT scan. 6. Hyperlipidemia. 7. Hypertension. 8. Rheumatoid arthritis of multiple joints bilaterally. 9. Obesity with body mass index of 31.1. 10.Increased WBC. 11.Gait dysfunction. 12.Increased creatinine with possibly chronic kidney disease stage III. 13.Possible urinary tract infection. RECOMMENDATIONS AND DISCUSSION: I recommend to continue current medications, continue with monitoring symptomatic treatment. Otherwise, at this time, repeat cultures are negative so far. We will continue to monitor. PT/OT evaluation, possible ECF rehab. Continue antibiotics. We will obtain PT/OT evaluation. Further recommendations to follow. MMODL / IJN: [id number] /
--- NOTE | 2018-09-28 23:07 | P.PN ---
Subjective Progress Note Date: 09/28/18 This is a 78-year-old female patient with past medical history significant for rheumatoid arthritis under the care of Dr. Florez and currently on Remicade and methotrexate. Patient's last Remicade infusion was on September 02 and she receives every 6 weeks. Patient currently has had ongoing going increasing shortness of breath with a nonproductive cough is been going on since May but gradually worsening and had an appointment with Dr. Chen is scheduled for the end of this week but due to worsening symptoms along with right upper chest pain, she came into [facility] emergency center for evaluation. She was found to be afebrile, white count 16.1, creatinine 1.26, AST 54, alb umin 3.6. Patient underwent an outpatient CAT scan on 09/10/2018 revealed diffuse bilateral parenchymal fibrosis in the periphery without acute pulmonary process. Considerations for IPF was within the differential. CTA was performed on this admission and pulmonary embolus was ruled out. There is subpleural reticular opacities seen throughout the lung forrest bilaterally representing chronic interstitial lung disease. Urine culture came back positive for E. coli and thus this consult was placed. E. coli is pansensitive and patient has been on Zosyn and vancomycin and did receive a dose of azithromycin in the ER. A urinalysis does not appear to have been done but a urine culture is in progress. Patient states that prior to coming into the hospital, she was having increased urinary frequency, dysuria, suprapubic discomfort. She denies having any fever or chills. She states she has about 3-4 urinary tract infections per year. 09/26/2018 the patient is showing some improvement in the last day. She is without new acute complaints. Tolerating antibiotic therapy well. Her nausea or emesis. No shortness of breath. 09/28/2018 patient continues to have some ongoing improvement. She's having no difficulty with antibiotic therapy. The patient has been swabbed and is known to be influenza A positive also at this time. Objective - Vital Signs Vital signs: Vital Signs Temp 97.9 F 09/28/18 20:26 Pulse 84 09/28/18 20:52 Resp 18 09/28/18 20:26 BP 179/92 09/28/18 20:26 Pulse Ox 98 09/28/18 20:26 Intake & Output 03/09/28/18 09/29/18 06:59 18:59 06:59 Other: # Voids 3 1 - Exam Gen: This is a obese 78-year-old female. She is resting in bed and appears to be comfortable and in no acute distress. HEENT: Head is atraumatic, normocephalic. Pupils equal, round. Sclerae is anicteric. Conjunctiva pink. Oral mucous members are slightly dry. No thrush noted. NECK: Supple. No JVD. No lymphadenopathy. No thyromegaly. LUNGS: Coarse crackles bilaterally. Expiratory wheezes no bronchial sounds normal dullness or egophony HEART: Regular rate and rhythm. No murmur. ABDOMEN: Soft. Bowel sounds are present. No masses. No tenderness. There is one healed lesion to the left and scabbed lesion to the right side. EXTREMITIES: No pedal edema. No calf tenderness. Dorsalis pedis +1 bilaterally. NEUROLOGICAL: Patient is awake, alert and oriented x3. - Labs CBC & Chem 7: 09/28/18 11:54 09/28/18 11:54 Labs: Abnormal Lab Results - Last 24 Hours (Table) 09/28/18 09/28/18 Range/Units 11:54 11:54 WBC 12.1 H (3.8-10.6) k/uL Neutrophils # 8.6 H (1.3-7.7) k/uL Creatinine 1.13 H (0.52-1.04) mg/dL Glucose 114 H (74-99) mg/dL Microbiology - Last 24 Hours (Table) 09/26/18 11:20 Blood Culture - Preliminary Blood No Growth after 48 hours 09/25/18 10:10 Blood Culture - Preliminary Blood No Growth after 72 hours Laboratory Results WBC 12.1 k/uL (3.8-10.6) H 09/28/18 11:54 RBC 4.53 m/uL (3.80-5.40) 09/28/18 11:54 Hgb 12.8 gm/dL (11.4-16.0) 09/28/18 11:54 Hct 40.7 % (34.0-46.0) 09/28/18 11:54 MCV 89.7 fL (80.0-100.0) 09/28/18 11:54 MCH 28.2 pg (25.0-35.0) 09/28/18 11:54 MCHC 31.4 g/dL (31.0-37.0) 09/28/18 11:54 RDW 13.7 % (11.5-15.5) 09/28/18 11:54 Plt Count 212 k/uL (150-450) 09/28/18 11:54 Neutrophils % 71 % 09/28/18 11:54 Lymphocytes % 19 % 09/28/18 11:54 Monocytes % 5 % 09/28/18 11:54 Eosinophils % 3 % 09/28/18 11:54 Basophils % 0 % 09/28/18 11:54 Neutrophils # 8.6 k/uL (1.3-7.7) H 09/28/18 11:54 Lymphocytes # 2.2 k/uL (1.0-4.8) 09/28/18 11:54 Monocytes # 0.6 k/uL (0-1.0) 09/28/18 11:54 Eosinophils # 0.3 k/uL (0-0.7) 09/28/18 11:54 Basophils # 0.0 k/uL (0-0.2) 09/28/18 11:54 Hypochromasia Slight 09/25/18 09:10 D-Dimer 5.05 mg/L FEU (<0.60) H 09/23/18 04:00 Sodium 137 mmol/L (137-145) 09/28/18 11:54 Potassium 4.3 mmol/L (3.5-5.1) 09/28/18 11:54 Chloride 105 mmol/L (98-107) 09/28/18 11:54 Carbon Dioxide 24 mmol/L (22-30) 09/28/18 11:54 Anion Gap 8 mmol/L 09/28/18 11:54 BUN 17 mg/dL (7-17) 09/28/18 11:54 Creatinine 1.13 mg/dL (0.52-1.04) H 09/28/18 11:54 Est GFR (CKD-EPI)AfAm 54 (>60 ml/min/1.73 sqM) 09/28/18 11:54 Est GFR (CKD-EPI)NonAf 47 (>60 ml/min/1.73 sqM) 09/28/18 11:54 Glucose 114 mg/dL (74-99) H 09/28/18 11:54 Calcium 9.8 mg/dL (8.4-10.2) 09/28/18 11:54 Magnesium 2.1 mg/dL (1.6-2.3) 09/26/18 08:38 Total Bilirubin 2.3 mg/dL (0.2-1.3) H 09/23/18 04:00 AST 54 U/L (14-36) H 09/23/18 04:00 ALT 15 U/L (9-52) 09/23/18 04:00 Alkaline Phosphatase 95 U/L (38-126) 09/23/18 04:00 Troponin I <0.012 ng/mL (0.000-0.034) 09/23/18 04:00 Total Protein 7.9 g/dL (6.3-8.2) 09/23/18 04:00 Albumin 3.6 g/dL (3.5-5.0) 09/23/18 04:00 Urine Color Yellow 09/26/18 Unknown Urine Appearance Clear (Clear) 09/26/18 Unknown Urine pH 8.0 (5.0-8.0) 09/26/18 Unknown Ur Specific [place] 1.009 (1.001-1.035) 09/26/18 Unknown Urine Protein Trace (Negative) H 09/26/18 Unknown Urine Glucose (UA) Negative (Negative) 09/26/18 Unknown Urine Ketones Negative (Negative) 09/26/18 Unknown Urine Blood Moderate (Negative) H 09/26/18 Unknown Urine Nitrite Negative (Negative) 09/26/18 Unknown Urine Bilirubin Negative (Negative) 09/26/18 Unknown Urine Urobilinogen <2.0 mg/dL (<2.0) 09/26/18 Unknown Ur Leukocyte Esterase Trace (Negative) H 09/26/18 Unknown Urine RBC >182 /hpf (0-5) H 09/26/18 Unknown Urine WBC 7 /hpf (0-5) H 09/26/18 Unknown Ur Squamous Epith Cells <1 /hpf (0-4) 09/26/18 Unknown Amorphous Sediment Occasional /hpf (None) H 09/26/18 Unknown Urine Mucus Rare /hpf (None) H 09/26/18 Unknown Influenza Type A RNA Detected (Not Detectd) H 09/27/18 11:10 Influenza Type B (PCR) Not Detected (Not Detectd) 09/27/18 11:10 Microbiology 09/26/18 11:20 Blood Blood Culture - Preliminary No Growth after 48 hours 09/25/18 10:10 Blood Blood Culture - Preliminary No Growth after 72 hours 09/24/18 15:01 Urine,Clean Catch Urine Culture - Final 09/23/18 06:55 Blood Blood Culture Gram Stain - Final 09/23/18 06:55 Blood Blood Culture - Final Escherichia coli 09/23/18 06:55 Blood Blood Culture - Final Assessment and Plan (1) Ulcer of abdomen wall with fat layer exposed Current Visit: No Status: Acute Code(s): L98.492 - NON-PRS CHRONIC ULCER OF SKIN OF SITES W FAT LAYER EXPOSED SNOMED Code(s): 09670777 (2) E. 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 Currently on Remicade therapy for her rheumatoid arthritis. She's been doing well but has developed evidence of infection from urinary system and sepsis and has been admitted. Cultures are now available and she has an E. coli that is susceptible and constantly antibiotic therapy is the escalated to Rocephin at this time. She responds over the next year. I will determine the transition to her course of antibiotic therapy at discharge. She has a small ulceration of the right lower abdominal wall for which mupirocin and an Optiform dressing will be applied over to try to help this heal up. Remicade will need to be held until she has clearance of the current infection. 09/26/2018 patient is showing some improvement with the treatment of the underlying E. coli sepsis. Continue fluids and antibiotic therapy with Rocephin. When she is improved and ready for discharge to home should be able to transition to oral ciprofloxacin to complete her course of treatment for the current urinary infection and sepsis. 09/28/2018 patient is having further improvement. There is evidence of E. coli sepsis and the computed tomography scan does show evidence of the perinephric stranding likely the renal etiology of her sepsis. The patient did have a few new symptoms and influenza screening was positive now for influenza A and Tamiflu has been started. Complete her course of Tamiflu while she completes her course of ciprofloxacin for her E. coli sepsis and bacteremia. Current Visit: Yes Status: Acute Code(s): A41.51 - SEPSIS DUE TO ESCHERICHIA COLI [E. COLI] SNOMED Code(s): 399858821
[2018-09-29] MEDS ORDERED: hydrALAZINE HCL 25 MG TAB PO STA (05:36)
[2018-09-29] MEDS ORDERED: hydrALAZINE HCL 25 MG TAB PO PRN (07:37)
[2018-09-29] MEDS: BUDESONIDE 1 MG/2 ML NEBU INHALATION SCH (08:01)
[2018-09-29] MEDS: ASPIRIN 81 MG PO SCH (08:26)
[2018-09-29] MEDS: HEPARIN SODIUM,PORCINE 5,000 UNIT/ML 1 ML VIAL SQ SCH (08:26)
[2018-09-29] MEDS: VENLAFAXINE HCL 75 MG TAB PO SCH (08:27)
[2018-09-29] MEDS: PANTOPRAZOLE 40 MG TABLET PO SCH (08:27)
[2018-09-29] MEDS: METOPROLOL SUCCINATE (ER) 100 MG TAB.ER.24H PO SCH (08:27)
[2018-09-29] MEDS: GLYCOPYRROLATE 1 MG TAB PO SCH (08:27)
[2018-09-29] MEDS: CHOLECALCIFEROL 1,000 UNIT TAB PO SCH (08:27)
[2018-09-29] MEDS: MULTIVITAMINS, THERA 1 EACH TAB PO SCH (08:27)
[2018-09-29] MEDS: TOPIRAMATE 100 MG TAB PO SCH (08:27)
[2018-09-29] MEDS: methylPREDNISolone 4 MG TAB TAPER PO SCH (08:28)
[2018-09-29] MEDS: OSELTAMIVIR 60 MG/10 ML ORAL SYRINGE PO SCH (08:28)
[2018-09-29 10:42] LABS: Basophils # (A) 0.1 k/uL (0-0.2); Basophils % (A) 0 %; Eosinophils # (A) 0.4 k/uL (0-0.7); Eosinophils % (A) 3 %; HCT 39.2 % (34.0-46.0); HGB 12.6 gm/dL (11.4-16.0); Lymphocytes # (A) 3.3 k/uL (1.0-4.8); Lymphocytes % (A) 26 %; MCH 28.5 pg (25.0-35.0); MCV 89.2 fL (80.0-100.0); Mean Platelet Volume 7.7; Monocytes # (A) 0.7 k/uL (0-1.0); Monocytes % (A) 6 %; Neutrophils # (A) 7.9 k/uL (1.3-7.7); Neutrophils % (A) 62 %; Platelet Count 254 k/uL (150-450); RDW 13.6 % (11.5-15.5); WBC 12.7 k/uL (3.8-10.6)
[2018-09-29 14:02] VITALS: BP 138/78; PULSE 79; TEMP 97
--- NOTE | 2018-09-30 00:02 | DS ---
DISCHARGE SUMMARY DATE OF SERVICE: 09/29/2018. FINAL DIAGNOSES: 1. 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 2. Acute influenza A. 3. Change in mental status acute delirium. 4. Gastroesophageal reflux disease. 5. E coli bacteremia possibly from urinary tract infection with perinephric stranding on CT scan. 6. Hyperlipidemia. 7. Hypertension. 8. Rheumatoid arthritis of multiple joints bilaterally. 9. Obesity with body mass index of 31.1. 10.Increased WBC. 11.Gait dysfunction, increased creatinine possibly chronic kidney disease stage III. 12.Possible urinary tract infection. CONDITION: The patient is being discharged in stable condition with guarded prognosis. HISTORY OF PRESENT ILLNESS: This 78-year-old woman with a past history of multiple medical problems was admitted with progressive pulmonary fibrosis and rheumatoid lung and tracheobronchitis. Patient also had acute influenza A and multiple other medications. The patient was treated symptomatically. Patient improved significantly. On physical exam, cardiovascular, S1 and S2 muffled. Lungs with diminished breath sounds at the bases. Few scattered rhonchi and crackles. Abdomen soft, nontender. Nervous system, no focal deficits. LABS: WBC 12.2, hemoglobin 12.6. The patient has influenza A positive. DISCHARGE INSTRUCTIONS: 1. Cardiac diet. 2. Activity limited. FOLLOWUP: 1. Follow up with the family physician, Dr. Bacon. 2. Followup with Dr. Butts in 1 week. MEDICATIONS: 1. Aspirin 81 mg p.o. 2. Effexor 150 mg daily. 3. effexor 75 mg at bedtime. 4. Fish oil 1 p.o. daily. 5. Methotrexate 7.5 mg weekly. 6. [place] 5 mg b.i.d. p.r.n. 7. Plavix 60 mg p.o. daily. 8. Robinul 1 mg p.o. b.i.d. 9. Toprol-XL 100 mg p.o. daily. 10.Torsemide 200 mg p.o. b.i.d. 11.Crestor 1000 mg mg p.o. daily. 12.Zocor 40 mg p.o. at bedtime. 13.Bactroban 2% topical application t.i.d. 14.Medrol Dosepak. 15.Symbicort 4.5 two puffs b.i.d. 16.tamiflu 30 mg b.i.d. TIME TAKEN: 35 minutes. The patient is being discharged in stable condition with guarded prognosis. PAM / LE: [id number] / MTDD
--- NOTE | 2018-09-30 13:09 | CDI ---
Documentation Clarification Form Date: 09/30/18 From: Geni Pitts Phone: If you have a question regarding this query, please contact Claudia Swan at [phone] between 8am and 5pm. Admit Date: 09/23/2018 6:36:00 AM Patient Name: Eveline Manzano Visit Number: [id number] Discharge Date: 09/29/2018 4:21:00 PM ATTENTION: The Clinical Documentation Specialists (CDI) and [facility] Coding Staff appreciate your assistance in clarifying documentation. Please respond to the clarification below the line at the bottom and electronically sign. The CDI & [facility] Coding staff will review the response and follow-up if needed. Please note: Queries are made part of the Legal Health Record. If you have any questions, please contact the author of this message via ITS. Dr. Disha Mcintosh The patient presented with progressively getting more short of breath and easily tired. History/Risk Factors: Pneumonia was documented in the ER note but documentation in progress notes from 09/25 to discharge states acute purulent tracheobronchitis with pneumonia unlikely. Blood cultures grew out E.coli and urine cultures also grew out E.coli. Dr. Major documents evidence of E.coli sepsis in his consult note and progress notes. You documented E.coli bacteremia in your discharge summary.The patient has a history of previous UTI, rheumatoid lung and pulmonary fibrosis. Clinical Indicators: E.coli growing in the blood, elevated WBC WBC: 16.1 Lactic acid: Not tested. Blood cultures: E.coli. Vitals signs on admission: T. 98.4, P. 108, R. 22, BP 132/83 Antibiotics: IV Ceftriaxone sodium, PO Zithromax, IV Zosyn In your professional opinion, please clarify if these findings signify one of the following conditions: Sepsis ruled out SIRS, without underlying infectious process Sepsis Severe Sepsis Septic Shock Other, please specify Unable to determine Sepsis MTDD
== END 2018-09-29 16:21 | disposition home or self-care (01) | DRG 872 ==
LOC: EC 03:33 → 4MS4W 06:36
PROVIDERS: ADMIT Hospitalist; ATTEND Hospitalist
DX: A41.51 Sepsis due to Escherichia coli [E. coli] (principal); N39.0 Urinary tract infection, site not specified; J84.10 Pulmonary fibrosis, unspecified; M05.10 Rheumatoid lung disease with rheumatoid arthritis of unspecified site; N18.3 Chronic kidney disease, stage 3 (moderate); E66.9 Obesity, unspecified; J20.9 Acute bronchitis, unspecified; E78.5 Hyperlipidemia, unspecified; G47.33 Obstructive sleep apnea (adult) (pediatric); J10.1 Influenza due to other identified influenza virus with other respiratory manifestations; K21.9 Gastro-esophageal reflux disease without esophagitis; F32.9 Major depressive disorder, single episode, unspecified; M25.511 Pain in right shoulder; R26.9 Unspecified abnormalities of gait and mobility; R41.0 Disorientation, unspecified; R07.9 Chest pain, unspecified; L98.492 Non-pressure chronic ulcer of skin of other sites with fat layer exposed; I12.9 Hypertensive chronic kidney disease with stage 1 through stage 4 chronic kidney disease, or unspecified chronic kidney disease; Z68.31 Body mass index [BMI] 31.0-31.9, adult; Z79.82 Long term (current) use of aspirin; Z79.899 Other long term (current) drug therapy; Z88.2 Allergy status to sulfonamides; Z90.710 Acquired absence of both cervix and uterus; Z80.1 Family history of malignant neoplasm of trachea, bronchus and lung; Z82.3 Family history of stroke; Z82.49 Family history of ischemic heart disease and other diseases of the circulatory system; Z82.61 Family history of arthritis
CPT/HCPCS: 36415; 71046; 71275; 74176; 80048; 80053; 81001; 83735; 84132; 84484; 85025; 85379; 87040; 87077; 87086; 87186; 87502; 93005; 94640; 96365; 96375; 99285

== ENCOUNTER → 2018-10-30 | Outpatient (CLI) | payer MEDICARE ==
[2018-10-30 12:56] VITALS: RESP 16; TEMP 98
[2018-10-30 14:21] VITALS: BP 166/88; PULSE 77
== END | disposition home or self-care (01) ==
LOC: PROCWHC3 12:13
PROVIDERS: ATTEND Internal Medicine Rheumatology
DX: M06.09 Rheumatoid arthritis without rheumatoid factor, multiple sites (principal); Z88.2 Allergy status to sulfonamides
CPT/HCPCS: 96413; 96415; Q5103

== ENCOUNTER → 2018-12-15 | Outpatient (CLI) | payer MEDICARE ==
[~2018-12-15] MED LIST changes: +INFLIXIMAB-DYYB 500 MG in SODIUM CHLORIDE 0.9% 200 ML IV NR; -INFLIXIMAB-DYYB 500 MG in SODIUM CHLORIDE 0.9% 250 ML IV NR; +diphenhydrAMINE 50 MG/ML 1 ML VIAL IVP PRN
[2018-12-15 11:16] VITALS: TEMP 97.4
[2018-12-15 12:47] VITALS: BP 147/93; PULSE 69; RESP 16
== END | disposition home or self-care (01) ==
LOC: PROCWHC3 11:06
PROVIDERS: ATTEND Internal Medicine Rheumatology
DX: M06.09 Rheumatoid arthritis without rheumatoid factor, multiple sites (principal); Z88.2 Allergy status to sulfonamides
CPT/HCPCS: 96361; 96413; 96415; Q5103

== ENCOUNTER → 2019-01-26 | Outpatient (CLI) | payer MEDICARE ==
[~2019-01-26] MED LIST changes: -INFLIXIMAB-DYYB 500 MG in SODIUM CHLORIDE 0.9% 200 ML IV NR; +INFLIXIMAB-DYYB 500 MG in SODIUM CHLORIDE 0.9% 250 ML IV NR; -diphenhydrAMINE 50 MG/ML 1 ML VIAL IVP PRN
[2019-01-26 11:23] VITALS: TEMP 98.8
[2019-01-26 12:04] VITALS: RESP 16
[2019-01-26 12:48] VITALS: BP 122/78; PULSE 70
== END | disposition home or self-care (01) ==
LOC: PROCWHC3 10:59
PROVIDERS: ATTEND Internal Medicine Rheumatology
DX: M06.09 Rheumatoid arthritis without rheumatoid factor, multiple sites (principal); Z88.2 Allergy status to sulfonamides
CPT/HCPCS: 96365; 96366; Q5103

== ENCOUNTER 2019-02-13 18:08 | Emergency (ER) | payer MEDICARE ==
[2019-02-13] MEDS ORDERED: ACETAMINOPHEN TAB 500 MG TAB PO STA (18:34)
[2019-02-13] MEDS ORDERED: BENZONATATE 100 MG CAP PO STA (18:35)
[2019-02-13] MEDS: SODIUM CHLORIDE 0.9% 500 ML 500 ML IV SCH ×2 (19:00→19:59)
[2019-02-13 19:04] LABS: Basophils % (A) 0 %; Eosinophils # (A) 0.4 k/uL (0-0.7); Eosinophils % (A) 4 %; HCT 41.4 % (34.0-46.0); HGB 13.7 gm/dL (11.4-16.0); Lymphocytes # (A) 2.9 k/uL (1.0-4.8); Lymphocytes % (A) 29 %; MCH 29.8 pg (25.0-35.0); MCHC 33.1 g/dL (31.0-37.0); MCV 90.1 fL (80.0-100.0); Mean Platelet Volume 7.6; Monocytes # (A) 0.5 k/uL (0-1.0); Monocytes % (A) 5 %; Neutrophils # (A) 6.1 k/uL (1.3-7.7); Neutrophils % (A) 60 %; Platelet Count 186 k/uL (150-450); RDW 14.2 % (11.5-15.5); WBC 10.1 k/uL (3.8-10.6)
--- NOTE | 2019-02-13 19:08 | ED ---
General Adult HPI - General Chief complaint: Arrhythmia/Palpitations Stated complaint: Cough/congestion Time Seen by Provider: 02/13/19 18:22 Source: patient Mode of arrival: ambulatory Limitations: no limitations - History of Present Illness Initial comments: 78-year-old female patient with past medical history significant for pulmonary fibrosis, presents to the emergency department today for evaluation of cough or sputum production. States she has been coughing for the last week. Patient states the cough is persistent day and night. She denies any shortness of breath with this. Denies any known fever. States she is coughing up yellow sputum without hemoptysis. Denies any leg swelling. Denies orthopnea. Denies chest pain with this. States she does have a sore throat. No nasal congestion or drainage. Patient denies any recent rash, abdominal pain, nausea, vomiting, diarrhea, constipation, back pain, numbness, tingling, dizziness, weakness, hematuria, dysuria, urinary urgency, urinary frequency, headache, visual changes, or any other complaints. - Related Data Home Medications Medication Instructions Recorded Confirmed Metoprolol Succinate (ER) [Toprol 100 mg PO DAILY 11/11/13 01/26/19 XL] Omeprazole [PriLOSEC] 20 mg PO DAILY 11/11/13 01/26/19 Simvastatin [Zocor] 40 mg PO HS 11/11/13 01/26/19 Venlafaxine HCl [Effexor] 150 mg PO DAILY 12/21/16 01/26/19 HYDROcodone/APAP 5-325MG [[place] 1 tab PO BID PRN 09/23/18 01/26/19 5-325] Multivitamin,Therapeutic [Thera] 1 tab PO DAILY 09/23/18 01/26/19 Topiramate [Trokendi Xr] 200 mg PO BID 09/23/18 01/26/19 Venlafaxine HCl [Effexor XR] 75 mg PO HS 09/23/18 01/26/19 Previous Rx's Medication Instructions Recorded Albuterol Sulfate [Proair Hfa] 1 - 2 puff INHALATION Q6HR PRN #1 02/13/19 inhaler Azithromycin [Zithromax Z-pack] 0 mg PO DIRECTED #6 tab 02/13/19 Benzonatate [Tessalon Perles] 100 mg PO TID #20 cap 02/13/19 predniSONE 50 mg PO DAILY #5 tablet 02/13/19 Allergies Allergy/AdvReac Type Severity Reaction Status Date / Time Sulfa (Sulfonamide Allergy Rash/Hives Verified 02/13/19 18:21 Antibiotics) Review of Systems ROS Statement: Those systems with pertinent positive or pertinent negative responses have been documented in the HPI. ROS Other: All systems not noted in ROS Statement are negative. Past Medical History Past Medical History: GERD/Reflux, Hyperlipidemia, Hypertension, Rheumatoid Arthritis (RA), Sleep Apnea/CPAP/BIPAP Additional Past Medical History / Comment(s): GOUT History of Any Multi-Drug Resistant Organisms: MRSA Date of last positivie culture/infection: 2018 MDRO Source:: abdomen Past Surgical History: Back Surgery, Hysterectomy Additional Past Surgical History / Comment(s): SINUS SURG/COLONOSCOPY/RT BREAST BIOPSY/ANKLE ORIF LT/LT KNEE ARTHROSCOPY/LASIK SURG BOTH EYES. hardware removed from left ankle in January 2017 Past Anesthesia/Blood Transfusion Reactions: No Reported Reaction Past Psychological History: Anxiety Smoking Status: Former smoker Past Alcohol Use History: Occasional Past Drug Use History: None Reported - Past Family History Mother Family Medical History: CVA/TIA, Hypertension Father Family Medical History: Cancer Additional Family Medical History / Comment(s): Father had lung cancer General Exam Limitations: no limitations General appearance: alert, in no apparent distress, other (Physical well- developed, well-nourished elderly female patient in no acute distress. Vital signs upon presentation are temperature 100.4F, pulse 124, respirations 20, blood pressure 178/92, pulse ox 96% on room air.) Eye exam: Present: normal appearance, PERRL, EOMI. Absent: scleral icterus, conjunctival injection, periorbital swelling ENT exam: Present: normal exam, normal oropharynx, mucous membranes moist Respiratory exam: Present: normal lung sounds bilaterally. Absent: respiratory distress, wheezes, rales, rhonchi, stridor Cardiovascular Exam: Present: normal rhythm, tachycardia, normal heart sounds. Absent: systolic murmur, diastolic murmur, rubs, gallop, clicks GI/Abdominal exam: Present: soft, normal bowel sounds. Absent: distended, tenderness, guarding, rebound, rigid Neurological exam: Present: alert, oriented X3, CN II-XII intact Psychiatric exam: Present: normal affect, normal mood Skin exam: Present: warm, dry, intact, normal color. Absent: rash Course Vital Signs 02/13/19 02/13/19 02/13/19 18:17 20:00 21:53 Temperature 100.4 F H 98.1 F Pulse Rate 124 H 98 88 Respiratory 20 18 18 Rate Blood Pressure 178/92 155/87 162/89 O2 Sat by Pulse 96 96 95 Oximetry EKG Findings - EKG Comments: EKG Findings:: EKG obtained at 1840 shows sinus tachycardia with a ventricular rate of 113, NV interval 188, QRS duration 86, QT 320, QTC 438. No evidence of ST elevation or depression. Medical Decision Making - Medical Decision Making 78-year-old female patient presented to the emergency department today for tania luation of cough 5 days with positive sputum production. She was febrile at 100.4F on arrival. Lung sounds exhibit crackles in the bases. Oxygen saturation satisfactory on room air. Labs reviewed and revealed normal white blood cell count. Lactic acid 2.3 however she did receive albuterol treatment prior to arrival. Chest x-ray showed interstitial pulmonary fibrosis with no acute pulmonary changes. Upon reevaluation patient is reporting improvement of symptoms. She would like to be discharged home. We'll discharge with prescription for azithromycin, prednisone, Pro Air, and Tessalon Perles. She is instructed to follow-up with her primary care physician or personal computer network engineer for recheck of systems possible. Return parameters were discussed in detail. She verbalizes understanding and agrees with this plan. - Lab Data Result diagrams: 02/13/19 18:45 02/13/19 18:45 Lab Results 02/13/19 02/13/19 02/13/19 Range/Units 18:45 18:45 18:45 WBC 10.1 (3.8-10.6) k/uL RBC 4.60 (3.80-5.40) m/uL Hgb 13.7 (11.4-16.0) gm/dL Hct 41.4 (34.0-46.0) % MCV 90.1 (80.0-100.0) fL MCH 29.8 (25.0-35.0) pg MCHC 33.1 (31.0-37.0) g/dL RDW 14.2 (11.5-15.5) % Plt Count 186 (150-450) k/uL Neutrophils % 60 % Lymphocytes % 29 % Monocytes % 5 % Eosinophils % 4 % Basophils % 0 % Neutrophils # 6.1 (1.3-7.7) k/uL Lymphocytes # 2.9 (1.0-4.8) k/uL Monocytes # 0.5 (0-1.0) k/uL Eosinophils # 0.4 (0-0.7) k/uL Basophils # 0.0 (0-0.2) k/uL PT (9.0-12.0) sec INR (<1.2) APTT (22.0-30.0) sec Sodium 143 (137-145) mmol/L Potassium 3.8 (3.5-5.1) mmol/L Chloride 110 H (98-107) mmol/L Carbon Dioxide 21 L (22-30) mmol/L Anion Gap 12 mmol/L BUN 26 H (7-17) mg/dL Creatinine 1.32 H (0.52-1.04) mg/dL Est GFR (CKD-EPI)AfAm 45 (>60 ml/min/1.73 sqM) Est GFR (CKD-EPI)NonAf 39 (>60 ml/min/1.73 sqM) Glucose 120 H (74-99) mg/dL Lactic Ac Sepsis Rflx Plasma Lactic Acid [place] 2.3 H* (0.7-2.0) mmol/L Calcium 10.2 (8.4-10.2) mg/dL Total Bilirubin 0.6 (0.2-1.3) mg/dL AST 22 (14-36) U/L ALT 11 (9-52) U/L Alkaline Phosphatase 129 H (38-126) U/L Total Protein 8.3 H (6.3-8.2) g/dL Albumin 4.1 (3.5-5.0) g/dL Urine Color Urine Appearance (Clear) Urine pH (5.0-8.0) Ur Specific Inlet (1.001-1.035) Urine Protein (Negative) Urine Glucose (UA) (Negative) Urine Ketones (Negative) Urine Blood (Negative) Urine Nitrite (Negative) Urine Bilirubin (Negative) Urine Urobilinogen (<2.0) mg/dL Ur Leukocyte Esterase (Negative) Urine RBC (0-5) /hpf Urine WBC (0-5) /hpf Ur Squamous Epith Cells (0-4) /hpf Urine Mucus (None) /hpf 02/13/19 02/13/19 02/13/19 Range/Units 18:45 19:17 20:06 WBC (3.8-10.6) k/uL RBC (3.80-5.40) m/uL Hgb (11.4-16.0) gm/dL Hct (34.0-46.0) % MCV (80.0-100.0) fL MCH (25.0-35.0) pg MCHC (31.0-37.0) g/dL RDW (11.5-15.5) % Plt Count (150-450) k/uL Neutrophils % % Lymphocytes % % Monocytes % % Eosinophils % % Basophils % % Neutrophils # (1.3-7.7) k/uL Lymphocytes # (1.0-4.8) k/uL Monocytes # (0-1.0) k/uL Eosinophils # (0-0.7) k/uL Basophils # (0-0.2) k/uL PT 10.0 (9.0-12.0) sec INR 0.9 (<1.2) APTT 26.2 (22.0-30.0) sec Sodium (137-145) mmol/L Potassium (3.5-5.1) mmol/L Chloride (98-107) mmol/L Carbon Dioxide (22-30) mmol/L Anion Gap mmol/L BUN (7-17) mg/dL Creatinine (0.52-1.04) mg/dL Est GFR (CKD-EPI)AfAm (>60 ml/min/1.73 sqM) Est GFR (CKD-EPI)NonAf (>60 ml/min/1.73 sqM) Glucose (74-99) mg/dL Lactic Ac Sepsis Rflx Y Plasma Lactic Acid [place] (0.7-2.0) mmol/L Calcium (8.4-10.2) mg/dL Total Bilirubin (0.2-1.3) mg/dL AST (14-36) U/L ALT (9-52) U/L Alkaline Phosphatase (38-126) U/L Total Protein (6.3-8.2) g/dL Albumin (3.5-5.0) g/dL Urine Color Yellow Urine Appearance Clear (Clear) Urine pH 5.5 (5.0-8.0) Ur Specific Inlet 1.027 (1.001-1.035) Urine Protein 1+ H (Negative) Urine Glucose (UA) Negative (Negative) Urine Ketones 1+ H (Negative) Urine Blood Moderate H (Negative) Urine Nitrite Negative (Negative) Urine Bilirubin Negative (Negative) Urine Urobilinogen <2.0 (<2.0) mg/dL Ur Leukocyte Esterase Moderate H (Negative) Urine RBC 121 H (0-5) /hpf Urine WBC 2 (0-5) /hpf Ur Squamous Epith Cells 3 (0-4) /hpf Urine Mucus Occasional H (None) /hpf - Radiology Data Radiology results: report reviewed, image reviewed Two-view x-ray of the chest is obtained. Report was reviewed in its entirety. Impression by Dr. Rahman shows pulmonary interstitial fibrosis. No acute lung disease. No significant change compared to old exam. Normal heart. Disposition Clinical Impression: Pneumonia Disposition: HOME SELF-CARE Condition: Good Instructions (If sedation given, give patient instructions): Pneumonia (ED) Additional Instructions: Complete antibiotic prescription in full. Take cough medication as needed. Use inhaler as needed. Follow-up with your primary care physician for recheck in 1- 2 days. Follow-up with her personal computer network engineer for recheck as needed. Return to the emergency department immediately for any new, worsening, or concerning symptoms. Prescriptions: predniSONE 50 mg PO DAILY #5 tablet Albuterol Sulfate [Proair Hfa] 1 - 2 puff INHALATION Q6HR PRN #1 inhaler PRN Reason: Shortness Of Breath Benzonatate [Tessalon Perles] 100 mg PO TID #20 cap Azithromycin [Zithromax Z-pack] 0 mg PO DIRECTED #6 tab Is patient prescribed a controlled substance at d/c from ED?: No Referrals: Praveen Bacon MD [Primary Care Provider] - 1-2 days Time of Disposition: 22:09
[2019-02-13 19:12] LABS: Albumin 4.1 g/dL (3.5-5.0); Calcium 10.2 mg/dL (8.4-10.2); Potassium 3.8 mmol/L (3.5-5.1); Total Bilirubin 0.6 mg/dL (0.2-1.3); Total Protein 8.3 g/dL (6.3-8.2)
[2019-02-13 19:15] LABS: INR 0.9 (<1.2); Partial Thromboplastin Time 26.2 sec (22.0-30.0)
[2019-02-13 20:01] VITALS: RESP 18
[2019-02-13 20:29] LABS: Appearance,Urine Clear (Clear); Bilirubin,Urine Negative (Negative); Blood,Urine Moderate (Negative); Color,Urine Yellow; Glucose,Urine (UA) Negative (Negative); Ketones,Urine 1+ (Negative); Leukocyte Esterase,Urine Moderate (Negative); Mucus,Urine Occasional /hpf; Nitrite,Urine Negative (Negative); PH, Urine 5.5 (5.0-8.0); Protein,Urine 1+ (Negative); RBC,Urine 121 /hpf (0-5); Specific Gravity,Urine 1.027 (1.001-1.035); Squamous Epithelial Cell,Urine 3 /hpf (0-4); Urobilinogen,Urine <2.0 mg/dL (<2.0); WBC,Urine 2 /hpf (0-5)
--- NOTE | 2019-02-13 21:37 | XR ---
EXAMINATION TYPE: XR chest 2V DATE OF EXAM: 02/13/2019 COMPARISON: 10/20/2018 HISTORY: Cough and congestion TECHNIQUE: Frontal and lateral views of the chest are obtained. FINDINGS: Heart and mediastinum are normal. There is extensive coarse interstitial infiltrate in bot h lungs. There is no pleural effusion. Bony thorax is intact. IMPRESSION: Pulmonary interstitial fibrosis. No acute lung disease. No significant change compared t o old exam. Normal heart.
[2019-02-13 21:56] VITALS: BP 162/89; PULSE 88; TEMP 98.1
[2019-02-13] MEDS ORDERED: AZITHROMYCIN 500 MG TAB PO STA (22:03)
== END 2019-02-13 22:57 | disposition home or self-care (01) ==
LOC: EC 18:08
DX: J18.9 Pneumonia, unspecified organism (principal); J84.10 Pulmonary fibrosis, unspecified; R00.0 Tachycardia, unspecified; K21.9 Gastro-esophageal reflux disease without esophagitis; E78.5 Hyperlipidemia, unspecified; I10 Essential (primary) hypertension; F41.9 Anxiety disorder, unspecified; G47.30 Sleep apnea, unspecified; Z87.891 Personal history of nicotine dependence; Z88.2 Allergy status to sulfonamides; Z79.899 Other long term (current) drug therapy; Z86.14 Personal history of Methicillin resistant Staphylococcus aureus infection; Z99.89 Dependence on other enabling machines and devices; Z80.1 Family history of malignant neoplasm of trachea, bronchus and lung; Z82.49 Family history of ischemic heart disease and other diseases of the circulatory system
CPT/HCPCS: 36415; 71046; 80053; 81001; 83605; 85025; 85610; 85730; 87040; 87086; 93005; 96360; 96361; 99285

== ENCOUNTER → 2019-03-09 | Outpatient (CLI) | payer MEDICARE ==
[2019-03-09 13:38] VITALS: TEMP 97.7
[2019-03-09 15:21] VITALS: BP 146/81; PULSE 71; RESP 18
== END | disposition home or self-care (01) ==
LOC: PROCWHC3 13:13
PROVIDERS: ATTEND Internal Medicine Rheumatology
DX: M06.9 Rheumatoid arthritis, unspecified (principal)
CPT/HCPCS: 96413; 96415; Q5103

== ENCOUNTER → 2019-04-14 | Outpatient (CLI) | payer MEDICARE ==
--- NOTE | 2019-04-14 12:51 | US ---
EXAMINATION TYPE: US kidneys/renal and bladder DATE OF EXAM: 04/14/2019 COMPARISON: CT 09/26/2018 CLINICAL HISTORY: R31.9 Hematuria,unspecified. EXAM MEASUREMENTS: Right Kidney: 8.7 x 3.8 x 4.9 cm Left Kidney: 8.1 x 4.2 x 4.5 cm Post Void Residual Volume: 3.3 mL Bilateral cortical renal thinning is seen in the kidneys with diminished cortical medullary different iation. There is suboptimal visualization of both kidneys. Lobulated contour of both kidneys is seen as noted on the prior CT of 09/26/2018. Right Kidney: No hydronephrosis to small to accurately characterize 0.5 x 0.5 cm hypoechoic lesion is seen of the lateral right kidney. Left Kidney: Questionable renal sinus cysts. No discrete hydronephrosis. Bladder: wnl Bilateral Jets seen: no Normal Post Void Residual: Yes There is no evidence for hydronephrosis at this point in time. No nephrolithiasis is seen. The urina ry bladder is anechoic. Bilateral ureteral jets are not seen. IMPRESSION: Subcentimeter right renal lesion is too small to accurately characterize. This would be t oo small to characterize on CT and MRI kidneys could be considered to assess for T2 hyperintensity or 6 month follow-up ultrasound given the small size (0.5 cm). Bilateral kidneys demonstrate sequela of chronic medical renal disease without hydronephrosis. Probable left renal sinus cysts.
== END | disposition home or self-care (01) ==
LOC: RADUSWWP 11:41
PROVIDERS: ATTEND Internal Medicine
DX: N28.89 Other specified disorders of kidney and ureter (principal); N18.9 Chronic kidney disease, unspecified
CPT/HCPCS: 76770

== ENCOUNTER → 2019-06-10 | Outpatient (CLI) | payer MEDICARE ==
[2019-06-10 10:47] VITALS: RESP 16; TEMP 97.6
[2019-06-10 11:55] VITALS: BP 178/90; PULSE 65
== END | disposition home or self-care (01) ==
LOC: PROCWHC3 10:22
PROVIDERS: ATTEND Internal Medicine Rheumatology
DX: M06.09 Rheumatoid arthritis without rheumatoid factor, multiple sites (principal)
CPT/HCPCS: 96413; 96415; Q5103

== ENCOUNTER → 2019-07-22 | Outpatient (CLI) | payer MEDICARE ==
[2019-07-22 11:28] VITALS: RESP 16; TEMP 97.7
[2019-07-22 11:48] LABS: Basophils # (A) 0.1 k/uL (0-0.2); Basophils % (A) 1 %; Eosinophils # (A) 0.4 k/uL (0-0.7); Eosinophils % (A) 5 %; HGB 13.3 gm/dL (11.4-16.0); Hypochromasia Slight; Lymphocytes # (A) 2.8 k/uL (1.0-4.8); Lymphocytes % (A) 29 %; MCH 31.1 pg (25.0-35.0); MCHC 32.4 g/dL (31.0-37.0); MCV 95.8 fL (80.0-100.0); Mean Platelet Volume 8.5; Monocytes # (A) 0.5 k/uL (0-1.0); Monocytes % (A) 5 %; Neutrophils # (A) 5.8 k/uL (1.3-7.7); Neutrophils % (A) 59 %; Platelet Count 179 k/uL (150-450); RBC 4.28 m/uL (3.80-5.40); RDW 14.2 % (11.5-15.5); WBC 9.8 k/uL (3.8-10.6)
[2019-07-22 11:53] LABS: Albumin 3.7 g/dL (3.5-5.0); Calcium 9.7 mg/dL (8.4-10.2); Potassium 4.5 mmol/L (3.5-5.1); Total Bilirubin 0.8 mg/dL (0.2-1.3); Total Protein 7.1 g/dL (6.3-8.2)
[2019-07-22 12:53] VITALS: BP 112/58; PULSE 64
== END | disposition home or self-care (01) ==
LOC: PROCWHC3 11:06
PROVIDERS: ATTEND Internal Medicine Rheumatology
DX: M06.09 Rheumatoid arthritis without rheumatoid factor, multiple sites (principal)
CPT/HCPCS: 80053; 85025; 96413; 96415; 36415; Q5103

== ENCOUNTER → 2019-09-02 | Outpatient (CLI) | payer MEDICARE ==
[~2019-09-02] MED LIST changes: +INFLIXIMAB-DYYB 500 MG in SODIUM CHLORIDE 0.9% 200 ML IV NR; -INFLIXIMAB-DYYB 500 MG in SODIUM CHLORIDE 0.9% 250 ML IV NR
[2019-09-02 12:49] VITALS: RESP 16; TEMP 98
[2019-09-02 14:03] VITALS: BP 115/58; PULSE 62
== END | disposition home or self-care (01) ==
LOC: PROCWHC3 12:13
PROVIDERS: ATTEND Internal Medicine Rheumatology
DX: M06.09 Rheumatoid arthritis without rheumatoid factor, multiple sites (principal)
CPT/HCPCS: 96413; 96415; Q5103

== ENCOUNTER → 2019-10-14 | Outpatient (CLI) | payer MEDICARE ==
[2019-10-14 12:45] VITALS: PULSE 89; RESP 16; TEMP 98.4
[2019-10-14 14:20] VITALS: BP 119/77
== END | disposition home or self-care (01) ==
LOC: PROCWHC3 12:26
PROVIDERS: ATTEND Internal Medicine Rheumatology
DX: M06.09 Rheumatoid arthritis without rheumatoid factor, multiple sites (principal)
CPT/HCPCS: 96413; 96415; Q5103

== ENCOUNTER → 2019-11-27 | Outpatient (CLI) | payer MEDICARE ==
[~2019-11-27] MED LIST changes: +INFLIXIMAB-DYYB 500 MG in SODIUM CHLORIDE 0.9% 250 ML IV NR
[2019-11-27 12:11] VITALS: RESP 18; TEMP 98.3
[2019-11-27 13:38] LABS: Basophils % (A) 0 %; Eosinophils # (A) 0.4 k/uL (0-0.7); Eosinophils % (A) 5 %; HCT 38.2 % (34.0-46.0); Hypochromasia Slight; Lymphocytes # (A) 1.9 k/uL (1.0-4.8); Lymphocytes % (A) 24 %; MCH 28.8 pg (25.0-35.0); MCHC 31.4 g/dL (31.0-37.0); MCV 91.8 fL (80.0-100.0); Mean Platelet Volume 8.2; Monocytes # (A) 0.6 k/uL (0-1.0); Monocytes % (A) 7 %; Neutrophils # (A) 4.9 k/uL (1.3-7.7); Neutrophils % (A) 61 %; Platelet Count 192 k/uL (150-450); RBC 4.17 m/uL (3.80-5.40); RDW 13.2 % (11.5-15.5)
[2019-11-27 13:42] VITALS: BP 149/81; PULSE 81
== END | disposition home or self-care (01) ==
LOC: PROCWHC3 11:42
PROVIDERS: ATTEND Internal Medicine Rheumatology
DX: M06.09 Rheumatoid arthritis without rheumatoid factor, multiple sites (principal); M06.9 Rheumatoid arthritis, unspecified
CPT/HCPCS: 85025; 96413; 96415; 36415; Q5103

== ENCOUNTER → 2020-01-08 | Outpatient (CLI) | payer MEDICARE ==
[~2020-01-08] MED LIST changes: -INFLIXIMAB-DYYB 500 MG in SODIUM CHLORIDE 0.9% 200 ML IV NR
[2020-01-08 10:59] VITALS: RESP 18; TEMP 98.5
[2020-01-08 12:45] VITALS: BP 127/75; PULSE 71
== END | disposition home or self-care (01) ==
LOC: PROCWHC3 10:54
PROVIDERS: ATTEND Internal Medicine Rheumatology
DX: M06.09 Rheumatoid arthritis without rheumatoid factor, multiple sites (principal)
CPT/HCPCS: 96413; 96415; Q5103

== ENCOUNTER → 2020-01-21 | Outpatient (CLI) | payer MEDICARE ==
--- NOTE | 2020-01-21 15:41 | US ---
EXAMINATION TYPE: US kidneys/renal and bladder DATE OF EXAM: 01/21/2020 COMPARISON: 04/14/2019 CLINICAL HISTORY: N28.9 Kidney cyst. Patient states no symptoms EXAM MEASUREMENTS: Right Kidney: 8.3 x 4.8 x 4.3 cm Left Kidney: 9.9 x 4.3 x 4.4 cm Right Kidney: measures small in size, lobulated contour, cortical thinning, no hydronephrosis, 0.9cm hypoechoic area lateral mid pole Left Kidney: cortical thinning, no hydronephrosis or masses seen Bladder: not fully distended Bilateral Jets seen: no Bladder limited by incomplete distention. No obvious hydronephrosis or nephrolithiasis. IMPRESSION: 1. Lobulated renal contour with cortical thinning on the left correlate for chronic medical renal dis ease. 9 mm centimeter hypoechoic area in the right kidney is slightly increased in size from the prio r exam where it measured 5 mm. Does not meet the criteria of a simple cyst by ultrasound. Not clearly seen on previous CT scan of 09/26/2018 or 03/24/2014 correlate with MRI as clinically warranted.
== END | disposition home or self-care (01) ==
LOC: RADUSWWP 14:58
PROVIDERS: ATTEND Internal Medicine
DX: N28.89 Other specified disorders of kidney and ureter (principal); R93.421 Abnormal radiologic findings on diagnostic imaging of right kidney
CPT/HCPCS: 76770

== ENCOUNTER 2021-06-24 12:35 | Emergency (ER) | payer MEDICARE ==
[2021-06-24 13:23] VITALS: BP 139/94; PULSE 100; RESP 16; TEMP 98.1
--- NOTE | 2021-06-24 13:40 | ED ---
General Adult HPI - General Chief complaint: Extremity Problem,Nontraumatic Stated complaint: Left ankle pain Time Seen by Provider: 06/24/21 13:30 Source: patient, family, RN notes reviewed, old records reviewed Mode of arrival: wheelchair Limitations: no limitations - History of Present Illness Initial comments: Well-appearing 80-year-old female presents to the emergency room with complaints of left ankle pain and swelling for the past 2 weeks. Patient states has been progressively getting worse. She does have history of rheumatoid arthritis but states this feels different. She is not aware of a history of gout. She has been afebrile and denies any injury to the ankle. She states pain is 9 out of 10 and painful with light touch. -: week(s) (2) Location: left, lower extremity (ankle) Severity scale (1-10): 9 Quality: sharp, constant Consistency: constant Improves with: none Worsens with: movement, other (palpation) Associated Symptoms: denies other symptoms Treatments Prior to Arrival: none - Related Data Home Medications Medication Instructions Recorded Confirmed Metoprolol Succinate (ER) [Toprol 100 mg PO HS 11/11/13 06/24/21 XL] Simvastatin [Zocor] 40 mg PO HS 11/11/13 06/24/21 Lisinopril [Prinivil] 10 mg PO HS 06/24/21 06/24/21 Orencia(Unknown Dose) 1 dose SQ Q42D 06/24/21 06/24/21 Topiramate [Topamax] 200 mg PO HS 06/24/21 06/24/21 Venlafaxine HCl ER [Effexor Xr] 150 mg PO HS 06/24/21 06/24/21 traMADol HCL 100 mg PO BID PRN 06/24/21 06/24/21 Previous Rx's Medication Instructions Recorded Indomethacin [Indocin] 50 mg PO TID 4 Days #12 capsule 06/24/21 Allergies Allergy/AdvReac Type Severity Reaction Status Date / Time Sulfa (Sulfonamide Allergy Rash/Hives/ Verified 06/24/21 15:09 Antibiotics) Swelling Review of Systems ROS Statement: Those systems with pertinent positive or pertinent negative responses have been documented in the HPI. ROS Other: All systems not noted in ROS Statement are negative. Past Medical History Past Medical History: GERD/Reflux, Hyperlipidemia, Hypertension, Rheumatoid Arthritis (RA), Sleep Apnea/CPAP/BIPAP Additional Past Medical History / Comment(s): GOUT History of Any Multi-Drug Resistant Organisms: MRSA Date of last positivie culture/infection: 2017 MDRO Source:: abdomen Past Surgical History: Back Surgery, Hysterectomy Additional Past Surgical History / Comment(s): SINUS SURG/COLONOSCOPY/RT BREAST BIOPSY/ANKLE ORIF LT/LT KNEE ARTHROSCOPY/LASIK SURG BOTH EYES. hardware removed from left ankle in January 2017 Past Anesthesia/Blood Transfusion Reactions: No Reported Reaction Past Psychological History: Anxiety Smoking Status: Never smoker Past Alcohol Use History: Occasional Past Drug Use History: None Reported - Past Family History Mother Family Medical History: CVA/TIA, Hypertension Father Family Medical History: Cancer Additional Family Medical History / Comment(s): Father had lung cancer General Exam Limitations: no limitations General appearance: alert, in no apparent distress Head exam: Present: atraumatic, normocephalic, normal inspection Eye exam: Present: normal appearance Respiratory exam: Present: normal lung sounds bilaterally. Absent: respiratory distress, wheezes, rales, rhonchi, stridor Cardiovascular Exam: Present: regular rate, normal rhythm, normal heart sounds. Absent: systolic murmur, diastolic murmur, rubs, gallop, clicks GI/Abdominal exam: Present: soft. Absent: distended, tenderness, guarding, rebound, rigid Left Ankle exam: Present: tenderness, swelling, erythema. Absent: deformity, dislocation Foot/Toe exam: Present: normal inspection Neurovascular tendon exam: Present: no vascular compromise. Absent: abnormal cap refill, extremity cold to touch, pallor, foot drop Neurological exam: Present: alert, oriented X3 Psychiatric exam: Present: normal affect, normal mood Skin exam: Present: warm, dry, intact, normal color. Absent: rash, cyanosis Course Vital Signs 06/24/ 13:21 Temperature 98.1 F Pulse Rate 100 Respiratory 16 Rate Blood Pressure 139/94 O2 Sat by Pulse 96 Oximetry Medical Decision Making - Medical Decision Making 80-year-old female presents with complaints of left ankle pain and swelling for the past 2 weeks. Patient states has been progressively getting worse. She does have history of rheumatoid arthritis and gout according to medical records. She has been afebrile and denies any injury to the ankle. She states pain is 9 out of 10 and painful with light touch. X-ray of left shows prominent soft tissue swelling laterally. No fracture noted. Mid tibiotalar joint osteoarthritis. She states that she received pain relief with indomethacin and [place]. Erythema has decreased. She'll be treated for gout and directed to follow up with her primary care doctor next week. Case discussed with Dr. Bonilla Disposition Clinical Impression: Gout Disposition: HOME SELF-CARE Condition: Good Instructions (If sedation given, give patient instructions): Low Purine Diet (ED), Gout (ED) Additional Instructions: Take medication as prescribed and follow-up with your primary care doctor next week. Return to the emergency room with any new or worsening symptoms. Prescriptions: Indomethacin [Indocin] 50 mg PO TID 4 Days #12 capsule Is patient prescribed a controlled substance at d/c from ED?: No Referrals: Pratik Mulligan DO [Primary Care Provider] - 1-2 days Time of Disposition: 14:50 Decision Time: 14:49
[2021-06-24] MEDS: HYDROcodone/APAP 5-325MG 1 EACH TAB PO STA (13:50)
[2021-06-24] MEDS: INDOMETHACIN 25 MG CAP PO STA (14:08)
--- NOTE | 2021-06-24 14:27 | XR ---
EXAMINATION TYPE: XR ankle complete LT, 3 views DATE OF EXAM: 06/24/2021 Comparison: None Clinical History: [id number] female with lateral ankle pain, swelling, redness, pain Findings: Circumferential soft tissue swelling, greatest laterally. Mild degenerative spurring at the tibiotala r joint. No displaced fracture seen. Talar dome appears intact. Dgwdi-er-nuzzufjk sized plantar heel spur. Impression: 1. Prominent soft tissue swelling, especially laterally. No underlying acute osseous abnormality seen . 2. Underlying, at least mild tibiotalar joint OA. 3. Small plantar heel spur.
[2021-06-24] MEDS: COLCHICINE 0.6 MG EACH PO SCH (14:53)
== END 2021-06-24 14:35 | disposition home or self-care (01) ==
LOC: EC 12:35
DX: M10.9 Gout, unspecified (principal); I10 Essential (primary) hypertension; E78.5 Hyperlipidemia, unspecified; K21.9 Gastro-esophageal reflux disease without esophagitis; M06.9 Rheumatoid arthritis, unspecified; F41.9 Anxiety disorder, unspecified; Z79.899 Other long term (current) drug therapy
CPT/HCPCS: 99283

== ENCOUNTER 2021-10-25 18:50 | Emergency (ER) | payer MEDICARE ==
[2021-10-25 19:35] VITALS: TEMP 97.8
[2021-10-25 22:14] LABS: Basophils # (A) 0.1 k/uL (0-0.2); Basophils % (A) 1 %; Eosinophils # (A) 0.3 k/uL (0-0.7); Eosinophils % (A) 4 %; HCT 43.2 % (34.0-46.0); HGB 13.4 gm/dL (11.4-16.0); Hypochromasia Slight; Lymphocytes # (A) 2.5 k/uL (1.0-4.8); Lymphocytes % (A) 34 %; MCH 28.4 pg (25.0-35.0); MCHC 30.9 g/dL (31.0-37.0); Mean Platelet Volume 9.1; Monocytes # (A) 0.4 k/uL (0-1.0); Monocytes % (A) 6 %; Neutrophils # (A) 3.9 k/uL (1.3-7.7); Neutrophils % (A) 54 %; Platelet Count 181 k/uL (150-450); WBC 7.3 k/uL (3.8-10.6)
[2021-10-25 22:27] LABS: Albumin 3.8 g/dL (3.5-5.0); C Reactive Protein 1.7 mg/dL (<1.0); Calcium 10.1 mg/dL (8.4-10.2); Potassium 3.3 mmol/L (3.5-5.1); Total Bilirubin 0.7 mg/dL (0.2-1.3); Total Protein 7.7 g/dL (6.3-8.2)
--- NOTE | 2021-10-25 22:27 | XR ---
EXAMINATION TYPE: XR chest 2V DATE OF EXAM: 10/25/2021 COMPARISON: 01/18/2021 HISTORY: Cough TECHNIQUE: 2 view FINDINGS: Heart is normal. There are some coarse interstitial density in the lungs. No heart failure. There are chest leads. Bony thorax is intact. IMPRESSION: Pulmonary interstitial fibrosis which is not significantly different than last exam.
--- NOTE | 2021-10-25 22:29 | XR ---
EXAMINATION TYPE: XR ankle complete LT DATE OF EXAM: 10/25/2021 COMPARISON: 06/30/2021 HISTORY: Pain. Redness and swelling. TECHNIQUE: 3 views FINDINGS: There is some mild soft tissue swelling around the ankle joint. There is plantar calcaneal spurring. I see no fracture nor dislocation. There is spurring of the posterior malleolus. There is no evidence of focal bone destruction. IMPRESSION: No fracture. Soft tissue swelling. Degenerative hypertrophic changes.
[2021-10-25] MEDS ORDERED: lisinopriL 10 MG TAB PO STA (22:32)
[2021-10-25] MEDS ORDERED: POTASSIUM CHLORIDE ER 20 MEQ TAB.ER PO STA (22:48)
--- NOTE | 2021-10-25 22:52 | ED ---
General Adult HPI - General Chief complaint: Recheck/Abnormal Lab/Rx Stated complaint: Home Nurse sent pt in for High B/P Time Seen by Provider: 10/25/21 21:17 Source: patient Mode of arrival: wheelchair Limitations: no limitations - Related Data Home Medications Medication Instructions Recorded Confirmed Simvastatin [Zocor] 40 mg PO HS 11/11/13 10/25/21 Orencia(Unknown Dose) 1 dose SQ Q42D 06/24/21 10/25/21 Topiramate [Topamax] 200 mg PO HS 06/24/21 10/25/21 Venlafaxine HCl ER [Effexor XR] 150 mg PO HS 06/24/21 10/25/21 Acetaminophen Tab [Tylenol] 650 mg PO Q6H PRN 10/25/21 10/25/21 Albuterol Sulfate [Ventolin HFA] 2 puff INHALATION RT-Q4H PRN 10/25/21 10/25/21 Lisinopril [Prinivil] 10 mg PO HS 10/25/21 10/25/21 traMADol HCL [Ultram] 100 mg PO BID PRN 10/25/21 10/25/21 Previous Rx's Medication Instructions Recorded Melatonin 3 mg PO HS PRN tablet 07/04/21 Allergies Allergy/AdvReac Type Severity Reaction Status Date / Time Sulfa (Sulfonamide Allergy Rash/Hives/ Verified 10/25/21 21:55 Antibiotics) Swelling Review of Systems ROS Statement: Those systems with pertinent positive or pertinent negative responses have been documented in the HPI. ROS Other: All systems not noted in ROS Statement are negative. Past Medical History Past Medical History: GERD/Reflux, Hyperlipidemia, Hypertension, Rheumatoid Arthritis (RA), Sleep Apnea/CPAP/BIPAP Additional Past Medical History / Comment(s): GOUT History of Any Multi-Drug Resistant Organisms: MRSA Date of last positivie culture/infection: 07/01/21 MDRO Source:: Left Ankle Past Surgical History: Back Surgery, Hysterectomy, Orthopedic Surgery Additional Past Surgical History / Comment(s): SINUS SURG/COLONOSCOPY/RT BREAST BIOPSY/ANKLE ORIF LT/LT KNEE ARTHROSCOPY/LASIK SURG BOTH EYES. hardware removed from left ankle in January 2017, Ankle I/D this July Past Anesthesia/Blood Transfusion Reactions: No Reported Reaction Past Psychological History: Anxiety Smoking Status: Never smoker Past Alcohol Use History: Occasional Past Drug Use History: None Reported - Past Family History Mother Family Medical History: CVA/TIA, Hypertension Father Family Medical History: Cancer Additional Family Medical History / Comment(s): Father had lung cancer General Exam Limitations: no limitations Course Vital Signs 10/25/21 10/25/21 19:29 21:52 Temperature 97.8 F Pulse Rate 109 H Respiratory 18 Rate Blood Pressure 163/96 152/98 O2 Sat by Pulse 96 Oximetry EKG Findings - EKG Comments: EKG Findings:: EKG taken at 22:18. Sinus rhythm, left axis deviation. Ventricular rate 76. GA interval 159. QRS duration 90. QTC 422 Medical Decision Making - Lab Data Result diagrams: 10/25/21 22:00 10/25/21 22:00 Lab Results 10/25/21 10/25/21 Range/Units 22:00 22:00 WBC 7.3 (3.8-10.6) k/uL RBC 4.70 (3.80-5.40) m/uL Hgb 13.4 (11.4-16.0) gm/dL Hct 43.2 (34.0-46.0) % MCV 92.0 (80.0-100.0) fL MCH 28.4 (25.0-35.0) pg MCHC 30.9 L (31.0-37.0) g/dL RDW 16.0 H (11.5-15.5) % Plt Count 181 (150-450) k/uL MPV 9.1 Neutrophils % 54 % Lymphocytes % 34 % Monocytes % 6 % Eosinophils % 4 % Basophils % 1 % Neutrophils # 3.9 (1.3-7.7) k/uL Lymphocytes # 2.5 (1.0-4.8) k/uL Monocytes # 0.4 (0-1.0) k/uL Eosinophils # 0.3 (0-0.7) k/uL Basophils # 0.1 (0-0.2) k/uL Hypochromasia Slight Sodium 139 (137-145) mmol/L Potassium 3.3 L (3.5-5.1) mmol/L Chloride 106 (98-107) mmol/L Carbon Dioxide 25 (22-30) mmol/L Anion Gap 8 mmol/L BUN 15 (7-17) mg/dL Creatinine 1.21 H (0.52-1.04) mg/dL Est GFR (CKD-EPI)AfAm 49 (>60 ml/min/1.73 sqM) Est GFR (CKD-EPI)NonAf 42 (>60 ml/min/1.73 sqM) Glucose 102 H (74-99) mg/dL Calcium 10.1 (8.4-10.2) mg/dL Total Bilirubin 0.7 (0.2-1.3) mg/dL AST 33 (14-36) U/L ALT 17 (4-34) U/L Alkaline Phosphatase 126 (38-126) U/L C-Reactive Protein 1.7 H (<1.0) mg/dL Total Protein 7.7 (6.3-8.2) g/dL Albumin 3.8 (3.5-5.0) g/dL Disposition Referrals: Pratik Mulligan DO [Primary Care Provider] - 1-2 days
[2021-10-25 22:57] LABS: Erythrocyte Sedimentation Rate 41 mm/hr (0-20)
[2021-10-25] MEDS ORDERED: cloNIDine HCL 0.1 MG TAB PO STA (23:14)
[2021-10-25 23:21] VITALS: PULSE 96; RESP 16
--- NOTE | 2021-10-25 23:49 | ED ---
General Adult HPI - General Chief complaint: Recheck/Abnormal Lab/Rx Stated complaint: Home Nurse sent pt in for High B/P Time Seen by Provider: 10/25/21 21:17 Source: patient Mode of arrival: wheelchair Limitations: no limitations - History of Present Illness Initial comments: Patient is an 81-year-old female presents to the emergency department evalua tion of high blood pressure. Patient states her wound care nurse noticed it was high today. She states she has not taken her blood pressure medication in 3 days but usually takes as directed. Patient states she feels well now but this morning did not culture her wound care appointment with Dr. Turcios because she felt weaker than normal. Patient states this has since resolved. Patient normally moves independently at home. Her son is at bedside has concern for infection of the wound in her left ankle. He states patient had 6 weeks of IV antibiotics treatment for MRSA infection of the left ankle via PICC line and the patient has missed all of her follow-up appointments with Dr. Turcios since. Patient also endorses a cough with phlegm however patient has pulmonary fibrosis. She states the phlegm is new as of 2 weeks ago and is clear in color. She has no other concerns at this time including fever, chills, shortness of breath, chest pain, dizziness, lightheadedness, abdominal pain, nausea, vomiting, and burning with urination. - Related Data Home Medications Medication Instructions Recorded Confirmed Simvastatin [Zocor] 40 mg PO HS 11/11/13 10/25/21 Orencia(Unknown Dose) 1 dose SQ Q42D 06/24/21 10/25/21 Topiramate [Topamax] 200 mg PO HS 06/24/21 10/25/21 Venlafaxine HCl ER [Effexor XR] 150 mg PO HS 06/24/21 10/25/21 Acetaminophen Tab [Tylenol] 650 mg PO Q6H PRN 10/25/21 10/25/21 Albuterol Sulfate [Ventolin HFA] 2 puff INHALATION RT-Q4H PRN 10/25/21 10/25/21 Lisinopril [Prinivil] 10 mg PO HS 10/25/21 10/25/21 traMADol HCL [Ultram] 100 mg PO BID PRN 10/25/21 10/25/21 Previous Rx's Medication Instructions Recorded Melatonin 3 mg PO HS PRN tablet 07/04/21 Allergies Allergy/AdvReac Type Severity Reaction Status Date / Time Sulfa (Sulfonamide Allergy Rash/Hives/ Verified 10/25/21 21:55 Antibiotics) Swelling Review of Systems ROS Statement: Those systems with pertinent positive or pertinent negative responses have been documented in the HPI. ROS Other: All systems not noted in ROS Statement are negative. Past Medical History Past Medical History: GERD/Reflux, Hyperlipidemia, Hypertension, Rheumatoid Arthritis (RA), Sleep Apnea/CPAP/BIPAP Additional Past Medical History / Comment(s): GOUT History of Any Multi-Drug Resistant Organisms: MRSA Date of last positivie culture/infection: 07/01/21 MDRO Source:: Left Ankle Past Surgical History: Back Surgery, Hysterectomy, Orthopedic Surgery Additional Past Surgical History / Comment(s): SINUS SURG/COLONOSCOPY/RT BREAST BIOPSY/ANKLE ORIF LT/LT KNEE ARTHROSCOPY/LASIK SURG BOTH EYES. hardware removed from left ankle in January 2017, Ankle I/D this July Past Anesthesia/Blood Transfusion Reactions: No Reported Reaction Past Psychological History: Anxiety Smoking Status: Never smoker Past Alcohol Use History: Occasional Past Drug Use History: None Reported - Past Family History Mother Family Medical History: CVA/TIA, Hypertension Father Family Medical History: Cancer Additional Family Medical History / Comment(s): Father had lung cancer General Exam Limitations: no limitations General appearance: alert, in no apparent distress Head exam: Present: atraumatic, normocephalic, normal inspection Eye exam: Present: normal appearance, PERRL, EOMI. Absent: scleral icterus, conjunctival injection, periorbital swelling Neck exam: Present: normal inspection, full ROM Respiratory exam: Present: rales. Absent: normal lung sounds bilaterally, respiratory distress, wheezes, rhonchi, stridor, chest wall tenderness, accessory muscle use, decreased breath sounds, prolonged expiratory Cardiovascular Exam: Present: regular rate, normal rhythm, normal heart sounds. Absent: systolic murmur, diastolic murmur, rubs, gallop, clicks, JVD GI/Abdominal exam: Present: soft, normal bowel sounds. Absent: distended, tenderness, guarding, rebound, rigid Left Ankle exam: Absent: normal inspection (chronic wound, granulation noted, mild erythema surrounding with no induration or fluctuance ) Neurological exam: Present: alert, oriented X3, CN II-XII intact Psychiatric exam: Present: normal affect, normal mood Skin exam: Present: warm, dry, intact, normal color. Absent: rash Course Vital Signs 10/25/21 10/25/21 10/25/21 19:29 21:52 23:21 Temperature 97.8 F Pulse Rate 109 H 96 Respiratory 18 16 Rate Blood Pressure 163/96 152/98 222/122 O2 Sat by Pulse 96 96 Oximetry 10/26/21 00:14 Temperature Pulse Rate Respiratory Rate Blood Pressure 190/90 O2 Sat by Pulse Oximetry Medical Decision Making - Medical Decision Making This is an 81-year-old female who presents for evaluation of high blood pressure. Thorough history and examination were performed. Patient looks well and is in no apparent distress. Triage blood pressure is 163/96. Laboratory studies were obtained for generalized weakness the patient experienced this morning. Patient has mild hypokalemia at 3.3. Creatinine is elevated at 1.21 which is chronic for her. CRP is elevated at 1.7. Patient has a chronic wound of the left ankle with granulation noted. There is some mild surrounding erythema. No induration or fluctuance. There is an impregnated antibiotic strip within the wound. X-ray was obtained to rule out osteomyelitis which showed soft tissue swelling. Patient states her wound care nurse comes to her home biweekly. I will defer care to the wound care nurse. I obtained a chest x-ray for patient's cough since she has recently developed phlegm production. X-ray showed pulmonary interstitial fibrosis without significant change from prior x-ray. Patient given K-dur for hypokalemia. I initially gave patient her home dose of lisinopril for hypertension as she has not been taking at home. On reevaluation I performed a manual blood pressure measurement personally which was 220/115. I then give patient a small dose of clonidine. Repeat pressure is 190/90. Enalaprilat given with repeat pressure 158/98. Patient will be discharged with instruction to follow-up with her primary care provider for blood pressure management and repeat labs for hypokalemia. Patient states she has an appointment on October 30. Patient is highly encouraged to follow- up with Dr. Turcios for her left ankle wound and continue at home wound care as sc heduled. Her next wound long-term nurse visit is Saturday the . Return parameters discussed. Patient and her son verbalize understanding and are agreeable with this plan. Dr. Moreira is my attending. - Lab Data Result diagrams: 10/25/21 22:00 10/25/21 22:00 Lab Results 10/25/21 10/25/21 Range/Units 22:00 22:00 WBC 7.3 (3.8-10.6) k/uL RBC 4.70 (3.80-5.40) m/uL Hgb 13.4 (11.4-16.0) gm/dL Hct 43.2 (34.0-46.0) % MCV 92.0 (80.0-100.0) fL MCH 28.4 (25.0-35.0) pg MCHC 30.9 L (31.0-37.0) g/dL RDW 16.0 H (11.5-15.5) % Plt Count 181 (150-450) k/uL MPV 9.1 Neutrophils % 54 % Lymphocytes % 34 % Monocytes % 6 % Eosinophils % 4 % Basophils % 1 % Neutrophils # 3.9 (1.3-7.7) k/uL Lymphocytes # 2.5 (1.0-4.8) k/uL Monocytes # 0.4 (0-1.0) k/uL Eosinophils # 0.3 (0-0.7) k/uL Basophils # 0.1 (0-0.2) k/uL Hypochromasia Slight ESR 41 H (0-20) mm/hr Sodium 139 (137-145) mmol/L Potassium 3.3 L (3.5-5.1) mmol/L Chloride 106 (98-107) mmol/L Carbon Dioxide 25 (22-30) mmol/L Anion Gap 8 mmol/L BUN 15 (7-17) mg/dL Creatinine 1.21 H (0.52-1.04) mg/dL Est GFR (CKD-EPI)AfAm 49 (>60 ml/min/1.73 sqM) Est GFR (CKD-EPI)NonAf 42 (>60 ml/min/1.73 sqM) Glucose 102 H (74-99) mg/dL Calcium 10.1 (8.4-10.2) mg/dL Total Bilirubin 0.7 (0.2-1.3) mg/dL AST 33 (14-36) U/L ALT 17 (4-34) U/L Alkaline Phosphatase 126 (38-126) U/L C-Reactive Protein 1.7 H (<1.0) mg/dL Total Protein 7.7 (6.3-8.2) g/dL Albumin 3.8 (3.5-5.0) g/dL Disposition Clinical Impression: Hypokalemia, Chronic wound of extremity, Hypertension Disposition: HOME SELF-CARE Condition: Good Additional Instructions: Please follow up with her primary care provider for management of her blood pressure as well as repeat labs for low potassium. Continue wound care with at home nurse as scheduled for this Saturday. Return to the emergency department if you experience new, concerning, or worsening symptoms. Is patient prescribed a controlled substance at d/c from ED?: No Referrals: Pratik Mulligan DO [Primary Care Provider] - 1-2 days Time of Disposition: 00:48
[2021-10-26] MEDS ORDERED: ENALAPRILAT 1.25 MG/ML 1 ML VIAL IVP STA (00:14)
[2021-10-26 01:00] VITALS: BP 158/98
== END 2021-10-26 01:01 | disposition home or self-care (01) ==
LOC: EC 18:50
DX: I10 Essential (primary) hypertension (principal); E87.6 Hypokalemia; L08.9 Local infection of the skin and subcutaneous tissue, unspecified; K21.9 Gastro-esophageal reflux disease without esophagitis; M06.9 Rheumatoid arthritis, unspecified; E78.5 Hyperlipidemia, unspecified; F41.9 Anxiety disorder, unspecified; Z79.899 Other long term (current) drug therapy
CPT/HCPCS: 36415; 71046; 80053; 84145; 85025; 85652; 86140; 87040; 93005; 96374; 99284

== ENCOUNTER 2022-07-22 05:29 | Emergency (ER) | payer MEDICARE ==
[2022-07-22] MEDS ORDERED: ONDANSETRON 4 MG/2 ML VIAL IVP STA (06:28)
[2022-07-22] MEDS ORDERED: MORPHINE SULFATE 2 MG/ML SYRINGE IVP ONE (06:28)
[2022-07-22] MEDS ORDERED: methylPREDNISolone SOD SUCCI 125 MG/2 ML VIAL IV STA (06:28)
[2022-07-22] MEDS ORDERED: KETOROLAC 15 MG/ML 1 ML VIAL IVP STA (06:28)
--- NOTE | 2022-07-22 06:55 | ED ---
General Adult HPI - General Chief complaint: Extremity Injury, Lower Stated complaint: Right leg pain Time Seen by Provider: 07/22/22 05:40 Source: patient, RN notes reviewed Mode of arrival: ambulatory Limitations: no limitations - History of Present Illness Initial comments: 81-year-old female presents emergency Department chief complaint of right hip, low back and leg pain. Patient states started yesterday had difficulty getting around. Patient states that she had a fall. Patient has had prior back surgery. Patient denies any complaints of bowel, bladder incontinence or retention. Patient states that this pain rating down into her calf region denies any swelling or discoloration. No history DVT. Patient states she took some Excedrin did not have any relief for her symptoms. - Related Data Home Medications Medication Instructions Recorded Confirmed Simvastatin [Zocor] 40 mg PO HS 11/11/13 10/25/21 Orencia(Unknown Dose) 1 dose SQ Q42D 06/24/21 10/25/21 Topiramate [Topamax] 200 mg PO HS 06/24/21 10/25/21 Venlafaxine HCl ER [Effexor XR] 150 mg PO HS 06/24/21 10/25/21 Acetaminophen Tab [Tylenol] 650 mg PO Q6H PRN 10/25/21 10/25/21 Albuterol Sulfate [Ventolin HFA] 2 puff INHALATION RT-Q4H PRN 10/25/21 10/25/21 lisinopriL [Prinivil] 10 mg PO HS 10/25/21 10/25/21 traMADol HCL [Ultram] 100 mg PO BID PRN 10/25/21 10/25/21 Previous Rx's Medication Instructions Recorded Melatonin 3 mg PO HS PRN tablet 07/04/21 predniSONE 50 mg PO DAILY #4 tab 07/22/22 Allergies Allergy/AdvReac Type Severity Reaction Status Date / Time Sulfa (Sulfonamide Allergy Rash/Hives/ Verified 10/25/21 21:55 Antibiotics) Swelling Review of Systems ROS Statement: Those systems with pertinent positive or pertinent negative responses have been documented in the HPI. ROS Other: All systems not noted in ROS Statement are negative. Past Medical History Past Medical History: GERD/Reflux, Hyperlipidemia, Hypertension, Rheumatoid Arthritis (RA), Sleep Apnea/CPAP/BIPAP Additional Past Medical History / Comment(s): GOUT History of Any Multi-Drug Resistant Organisms: MRSA Date of last positivie culture/infection: 07/01/21 MDRO Source:: Left Ankle Past Surgical History: Back Surgery, Hysterectomy, Orthopedic Surgery Additional Past Surgical History / Comment(s): SINUS SURG/COLONOSCOPY/RT BREAST BIOPSY/ANKLE ORIF LT/LT KNEE ARTHROSCOPY/LASIK SURG BOTH EYES. hardware removed from left ankle in January 2017, Ankle I/D this July Past Anesthesia/Blood Transfusion Reactions: No Reported Reaction Past Psychological History: Anxiety Smoking Status: Never smoker Past Alcohol Use History: Occasional Past Drug Use History: None Reported - Past Family History Mother Family Medical History: CVA/TIA, Hypertension Father Family Medical History: Cancer Additional Family Medical History / Comment(s): Father had lung cancer General Exam Limitations: no limitations General appearance: alert, in no apparent distress Head exam: Present: atraumatic, normocephalic, normal inspection Eye exam: Present: normal appearance, PERRL, EOMI. Absent: scleral icterus, conjunctival injection, periorbital swelling ENT exam: Present: normal exam, mucous membranes moist Respiratory exam: Present: normal lung sounds bilaterally. Absent: respiratory distress, wheezes, rales, rhonchi, stridor Cardiovascular Exam: Present: regular rate, normal rhythm, normal heart sounds. Absent: systolic murmur, diastolic murmur, rubs, gallop, clicks GI/Abdominal exam: Present: soft, normal bowel sounds. Absent: distended, tenderness, guarding, rebound, rigid Extremities exam: Present: other (Right hip there is pain with range of motion, neurovascularly intact, swelling redness equal color equal warmth) Back exam: Present: full ROM. Absent: tenderness Neurological exam: Present: alert, oriented X3, CN II-XII intact, reflexes normal. Absent: motor sensory deficit Course Vital Signs 07/22/22 05:40 Temperature 97.9 F Pulse Rate 74 Respiratory 16 Rate Blood Pressure 147/85 O2 Sat by Pulse 98 Oximetry Medical Decision Making - Medical Decision Making Was pt. sent in by a medical professional or institution (, PA, RIP MACHINE OPERATOR, urgent care, hospital, or group home...) When possible be specific @ -No Did you speak to anyone other than the patient for history (EMS, parent, family, police, friend...)? What history was obtained from this source @ -No Did you review nursing and triage notes (agree or disagree)? Why? @ -I reviewed and agree with nursing and triage notes Were old charts reviewed (outside hosp., previous admission, EMS record, old EKG, old radiological studies, urgent care reports/EKG's, group home records)? Report findings @ -No old charts were reviewed Differential Diagnosis (chest pain, altered mental status, abdominal pain women, abdominal pain men, vaginal bleeding, weakness, fever, dyspnea, syncope, headache, dizziness, GI bleed, back pain, seizure, CVA, palpatations, mental health)? @ -Lumbar radiculopathy, lumbar fracture, hip fracture, lumbar strain, list is not all inclusive EKG interpreted by me (3pts min.). @ -None X-rays interpreted by me (1pt min.). @ -X-ray lumbar spine shows degenerative changes, postsurgical changes, x-ray hip shows abnormal right hip concerning for some No fracture or degenerative changes CT interpreted by me (1pt min.). @ -CT of the right hip shows moderate degenerative changes, no acute fracture. U/S interpreted by me (1pt. min.). @ -None done What testing was considered but not performed or refused? (CT, X-rays, U/S, labs)? Why? @ -None What meds were considered but not given or refused? Why? @ -None Did you discuss the management of the patient with other professionals (professionals i.e. , PA, RIP MACHINE OPERATOR, lab, RT, psych nurse, social media designer, geotechnical laboratory technician, teacher, neighborhood conservation officer, nurse case manager)? Give summary @ -No Was smoking cessation discussed for >3mins.? @ -No Was critical care preformed (if so, how long)? @ -No Were there social determinants of health that impacted care today? How? (Homelessness, low income, unemployed, alcoholism, drug addiction, transportation, low edu. Level, literacy, decrease access to med. care, usp, rehab)? @ -No Was there de-escalation of care discussed even if they declined (Discuss DNR or withdrawal of care, Hospice)? DNR status @ -No What co-morbidities impacted this encounter? (DM, HTN, Smoking, COPD, CAD, Cancer, CVA, ARF, Chemo, Hep., AIDS, mental health diagnosis, sleep apnea, morbid obesity)? @ -None Was patient admitted / discharged? Hospital course, mention meds given and route, prescriptions, significant lab abnormalities, going to OR and other pertinent info. @ -Discharged - patient has lumbar and He, degenerative changes of the right hip. Patient will be discharged with pain control, and follow-up with orthopedics return parameters discussed. Patient has no red flag symptoms. Undiagnosed new problem with uncertain prognosis? @ -No Drug Therapy requiring intensive monitoring for toxicity (Heparin, Nitro, Insulin, Cardizem)? @ -No Were any procedures done? @ -No Diagnosis/symptom? @ -Lumbar radiculopathy Acute, or Chronic, or Acute on Chronic? @ -Acute Uncomplicated (without systemic symptoms) or Complicated (systemic symptoms)? @ -Uncomplicated Side effects of treatment? @ -No Exacerbation, Progression, or Severe Exacerbation? @ -No Poses a threat to life or bodily function? How? (Chest pain, [place], [place], pneumonia, PE, COPD, DKA, ARF, appy, cholecystitis, CVA, Diverticulitis, Homicidal, Suicidal, threat to staff... and all critical care pts) @ -No Diagnosis/symptom? @ -Right hip ARTHRITIS Acute, or Chronic, or Acute on Chronic? @ -Acute Uncomplicated (without systemic symptoms) or Complicated (systemic symptoms)? @ -Uncomplicated Side effects of treatment? @ -none Exacerbation, Progression, or Severe Exacerbation] @ -no Poses a threat to life or bodily function? @ -no Disposition Clinical Impression: Osteoarthritis of right hip, Lumbar radiculopathy, acute Disposition: HOME SELF-CARE Condition: Stable Instructions (If sedation given, give patient instructions): Lumbar Radiculopathy (ED) Additional Instructions: Please return to the Emergency Department if symptoms worsen or any other c oncerns. Prescriptions: predniSONE 50 mg PO DAILY #4 tab Is patient prescribed a controlled substance at d/c from ED?: No Referrals: Pratik Mulligan DO [Primary Care Provider] - 1-2 days Jose Canales MD [Medical Doctor] - 1-2 days Time of Disposition: 08:03
--- NOTE | 2022-07-22 07:18 | XR ---
EXAMINATION TYPE: XR Hip RT and AP Pelvis DATE OF EXAM: 07/22/2022 COMPARISON: NONE HISTORY: Right hip pain TECHNIQUE: A single AP view of the pelvis is obtained. Two views of the right hip are obtained. FINDINGS: Due to overlying soft tissues degenerative changes the subcapital fracture of the right hip is not ex cluded and CT would be useful for further evaluation. The pelvic ring is intact and there is no focal osseous abnormality or fracture. The sacrum and SI johanna ints appear normal. There are marked degenerative changes are spine. IMPRESSION: Cannot exclude subcapital fracture of the right hip and CT is recommended for further evaluation.
--- NOTE | 2022-07-22 07:22 | XR ---
Lumbar spine HISTORY: Right hip pain and sciatica. COMPARISON: None TECHNIQUE: 5 views of the lumbar spine were obtained. FINDINGS: There is moderate fecal rotoscoliosis lumbar spine. There is marked degenerative disc disease from T11 through S1 with marked disc space narrowing and sp ondylosis there appears to have been laminectomy at the L3, L4-L5 level although the exam is limited by patient's body habitus and osteopenia. No acute fracture is identified. IMPRESSION: Limited study as described above. No definite acute fractures identified. There is marked degenerativ e changes throughout the lumbar region.
--- NOTE | 2022-07-22 07:52 | CT ---
EXAMINATION TYPE: CT hip RT wo con DATE OF EXAM: 07/22/2022 COMPARISON: None HISTORY: right hip pain CT DLP: 338.8 mGycm Automated exposure control for dose reduction was used. FINDINGS: There is moderate osteophytic change of the right hip with mild subchondral femoral head changes and spurring of the femoral head. There is no hip fracture or dislocation. The visualized right hemipelvis is intact. IMPRESSION: 1. NO RIGHT HIP FRACTURE 2. MODERATE OSTEOARTHRITIC CHANGE OF THE RIGHT HIP JOINT.
[2022-07-22] MEDS ORDERED: ACET/COD 300 MG/30 MG STARTER PACK 6 TAB BTL PO STA (08:04)
[2022-07-22 08:33] VITALS: BP 110/68; PULSE 70; RESP 20; TEMP 98.3
== END 2022-07-22 08:20 | disposition home or self-care (01) ==
LOC: EC 05:29
DX: M16.11 Unilateral primary osteoarthritis, right hip (principal); M54.16 Radiculopathy, lumbar region; I10 Essential (primary) hypertension; G47.30 Sleep apnea, unspecified; E78.5 Hyperlipidemia, unspecified; Z88.2 Allergy status to sulfonamides; Z79.52 Long term (current) use of systemic steroids; Z79.899 Other long term (current) drug therapy
CPT/HCPCS: 72110; 73502; 73700; 99284; 96374; 96375 ×3; J2930; J2405; J2270; J1885

== ENCOUNTER → 2022-09-26 | Outpatient (CLI) | payer MEDICARE ==
--- NOTE | 2022-09-26 11:59 | CT ---
EXAMINATION TYPE: CT abdomen wo con DATE OF EXAM: 09/26/2022 COMPARISON: 07/30/2022, CT scan 09/23/2018 HISTORY: Follow up for possible renal abscess. Patient poor historian. CT DLP: 166.7 mGycm Automated exposure control for dose reduction was used. TECHNIQUE: Helical acquisition of images was performed from the lung bases through the top of iliac crest to include entire abdomen. CONTRAST: Performed without Oral Contrast and without IV contrast. FINDINGS: LUNG BASES: There is coarsened interlobular septal thickening with early honeycombing seen involving the most inferior aspect of the lung bases compatible with pulmonary fibrosis. There is a 5 mm nodule on axial image [address] scan anterior segment right lower lobe. Cardiomegaly stable. LIVER/GB: No significant abnormality is appreciated. PANCREAS: No significant abnormality is seen. SPLEEN: No significant abnormality is seen. ADRENALS: No significant abnormality is seen. KIDNEYS: Right kidney: There is marked interval improvement of the area of abnormal cystic mass or abscess inv olving the lateral and posterior margin of the right kidney with some residual perinephric residual d ensity measuring 3 x 0.8 cm compatible with marked intrahepatic interval improvement. No hydronephros is or nephrolithiasis. Left kidney: No hydronephrosis or nephrolithiasis. BOWEL: Bowel gas pattern nonspecific with retained fecal debris correlate for constipation. LYMPH NODES: No significant abnormality is appreciated. OSSEOUS STRUCTURES: Hypertrophic and degenerative changes of the spine. There is a scoliotic curvatu re. Grade 1 anterolisthesis L3 on L4 and L4 on L5 FREE AIR: No free air is visualized. OTHER: Atherosclerotic change aorta with no evidence of aneurysm. IMPRESSION: 1. Marked interval improvement relative to the prior exam with very mild residual attenuation which i s nondescript within the right perirenal space posteriorly. Near complete resolution of previous find ings seen. Continued follow-up as clinically warranted. 2. Idiopathic pulmonary fibrosis UIP type. 3. There is a 5 mm pulmonary nodule right lower lobe anterior segment. This is retrospectively stable dating back to 2019 with a greater than two-year stable appearance suggesting benign etiology. 4. Scoliosis with severe multilevel degenerative disc disease and facet arthropathy. Multilevel sever e canal stenosis and foraminal encroachment suspected correlate clinically. Most marked findings at L 4-L5.
== END | disposition home or self-care (01) ==
LOC: RADCTMAIN 11:25
PROVIDERS: ATTEND Urology
DX: N28.1 Cyst of kidney, acquired (principal); J84.112 Idiopathic pulmonary fibrosis; R91.1 Solitary pulmonary nodule; M51.36 Other intervertebral disc degeneration, lumbar region; M47.816 Spondylosis without myelopathy or radiculopathy, lumbar region; M41.86 Other forms of scoliosis, lumbar region
CPT/HCPCS: 74150

== ENCOUNTER 2022-12-12 16:36 | Emergency (ER) | payer MEDICARE ==
[2022-12-12 16:42] VITALS: TEMP 98.6
--- NOTE | 2022-12-12 17:19 | ED ---
Dizziness HPI - General Chief Complaint: Syncope Stated Complaint: Syncope Time Seen by Provider: 12/12/22 16:58 Source: patient Mode of arrival: EMS Limitations: physical limitation - History of Present Illness Initial Comments: A 82-year-old female presenting to the ED with a chief complaint of syncoppe. Per patient, was standing up from her wheelchair when all of a sudden states that she felt lightheaded and felt as if she was going to pass out. Patient states the next thing she remembers was her on the floor surrounded by people. States that she does not recall these events. Prior to syncopal episode denies palpitations, chest pain, shortness of breath. Denies neck pain, headache. States that she has been eating and drinking normally. Is not having any complaints at this time. - Related Data Home Medications Medication Instructions Recorded Confirmed Topiramate [Topamax] 200 mg PO HS@209906/24/21 12/12/22 Venlafaxine HCl ER [Effexor XR] 150 mg PO HS@209906/24/21 12/12/22 Acetaminophen Tab [Tylenol] 650 mg PO Q6H PRN 10/25/21 12/12/22 Albuterol Sulfate [Ventolin HFA] 2 puff INHALATION RT-Q4H PRN 10/25/21 12/12/22 traMADol HCL [Ultram] 50 mg PO Q6H PRN 10/25/21 12/12/22 Omeprazole 20 mg PO DAILY@59907/24/22 12/12/22 Aspirin EC [Ecotrin Low Dose] 81 mg PO DAILY@89912/12/22 12/12/22 Atorvastatin [Lipitor] 20 mg PO HS@209912/12/22 12/12/22 Ensure Clear 240 ml PO DAILY@89912/12/22 12/12/22 Ferrous Sulfate [Iron] 325 mg PO BID@09,209912/12/22 12/12/22 Metoprolol Tartrate [Lopressor] 100 mg PO BID@899,209912/12/22 12/12/22 Ondansetron [Zofran] 4 mg PO TID PRN 12/12/22 12/12/22 amLODIPine [Norvasc] 10 mg PO DAILY@89912/12/22 12/12/22 lisinopriL [Zestril] 10 mg PO BID@0900,2100 12/12/22 12/12/22 Previous Rx's Medication Instructions Recorded Melatonin 3 mg PO HS PRN tablet 07/04/21 Cephalexin [Keflex] 500 mg PO Q6HR 7 Days #28 cap 12/12/22 Allergies Allergy/AdvReac Type Severity Reaction Status Date / Time Sulfa (Sulfonamide Allergy Rash/Hives/ Verified 12/12/22 19:33 Antibiotics) Swelling Review of Systems ROS Statement: Those systems with pertinent positive or pertinent negative responses have been documented in the HPI. ROS Other: All systems not noted in ROS Statement are negative. Past Medical History Past Medical History: GERD/Reflux, Hyperlipidemia, Hypertension, Rheumatoid Arthritis (RA), Sleep Apnea/CPAP/BIPAP Additional Past Medical History / Comment(s): GOUT History of Any Multi-Drug Resistant Organisms: MRSA Date of last positivie culture/infection: 08/02/22 MDRO Source:: Blood Past Surgical History: Back Surgery, Hysterectomy, Orthopedic Surgery Additional Past Surgical History / Comment(s): SINUS SURG/COLONOSCOPY/RT BREAST BIOPSY/ANKLE ORIF LT/LT KNEE ARTHROSCOPY/LASIK SURG BOTH EYES. hardware removed from left ankle in January 2017, Ankle I/D this July Past Anesthesia/Blood Transfusion Reactions: No Reported Reaction Past Psychological History: Anxiety Smoking Status: Never smoker Past Alcohol Use History: Occasional Past Drug Use History: None Reported - Past Family History Mother Family Medical History: CVA/TIA, Hypertension Father Family Medical History: Cancer Additional Family Medical History / Comment(s): Father had lung cancer General Exam Limitations: physical limitation General appearance: alert, in no apparent distress Head exam: Present: atraumatic (No Florez sign or raccoon's eyes.), normocephalic Eye exam: Present: normal appearance, PERRL, EOMI ENT exam: Present: mucous membranes dry Respiratory exam: Present: normal lung sounds bilaterally Cardiovascular Exam: Present: regular rate, normal rhythm GI/Abdominal exam: Present: soft Extremities exam: Present: other (Strength and sensation equal and symmetric in bilateral upper extremities. Deformities consistent with RA.) Neurological exam: Present: alert, oriented X3 Psychiatric exam: Present: normal affect, normal mood Skin exam: Present: warm, dry Course Vital Signs 12/12/22 16:39 Temperature 98.6 F Pulse Rate 58 L Respiratory 18 Rate Blood Pressure 94/83 O2 Sat by Pulse 98 Oximetry Medical Decision Making - Medical Decision Making Was pt. sent in by a medical professional or institution ([facility]wick, HOSPICE NURSE PRACTITIONER, urgent care, hospital, or [facility]...) When possible be specific @ -Patient sent in from [facility] via EMS Did you speak to anyone other than the patient for history (EMS, parent, family, police, friend...)? What history was obtained from this source @ -No Did you review nursing and triage notes (agree or disagree)? Why? @ -I reviewed and agree with nursing and triage notes Were old charts reviewed (outside hosp., previous admission, EMS record, old EKG, old radiological studies, urgent care reports/EKG's, [facility] records)? Report findings @ -Old charts reviewed showing no history of significant medical history Differential Diagnosis (chest pain, altered mental status, abdominal pain women, abdominal pain men, vaginal bleeding, weakness, fever, dyspnea, syncope, headache, dizziness, GI bleed, back pain, seizure, CVA, palpatations, mental health, musculoskeletal)? @ -Differential Syncope: Valvular disease, hypertrophic cardiomyopathy, pulmonary embolism, tamponade, tachycardia, bradycardia, [place], hypovolemia, hemorrhage, dissection, anemia, intracranial hemorrhage, seizure, hypoglycemia, carbon monoxide poisoning, this is not meant to be an all-inclusive list. EKG interpreted by me (3pts min.). @ -As above X-rays interpreted by me (1pt min.). @ -Chest x-ray shows no acute process CT interpreted by me (1pt min.). @ -None done U/S interpreted by me (1pt. min.). @ -None done What testing was considered but not performed or refused? (CT, X-rays, U/S, labs)? Why? @ -CT head was considered however at this time patient alert and oriented and does not complain of headache What meds were considered but not given or refused? Why? @ -None Did you discuss the management of the patient with other professionals (professionals i.e. [facility] Chadwick, HOSPICE NURSE PRACTITIONER, lab, RT, psych nurse, social work associate, cast iron drain pipe layer, teacher, motorcycle police officer, case fitter)? Give summary @ -No Was smoking cessation discussed for >3mins.? @ -No Was critical care preformed (if so, how long)? @ -No Were there social determinants of health that impacted care today? How? (Homeles sness, low income, unemployed, alcoholism, drug addiction, transportation, low edu. Level, literacy, decrease access to med. care, prison, rehab)? @ -No Was there de-escalation of care discussed even if they declined (Discuss DNR or withdrawal of care, Hospice)? DNR status @ -No What co-morbidities impacted this encounter? (DM, HTN, Smoking, COPD, CAD, Cancer, CVA, ARF, Chemo, Hep., AIDS, mental health diagnosis, sleep apnea, morbid obesity)? @ -None Was patient admitted / discharged? Hospital course, mention meds given and route, prescriptions, significant lab abnormalities, going to OR and other pertinent info. @ -Discharge. Labs significant for UTI, BUN/creatinine near baseline. Syncope likely due to dehydration. Upon initial evaluation blood pressure in the 90s systolic. After she received 1 L, blood pressure in the 120s systolic. Orthostatics good. Patient discharged home via EMS in stable condition. Undiagnosed new problem with uncertain prognosis? @ -No Drug Therapy requiring intensive monitoring for toxicity (Heparin, Nitro, Insulin, Cardizem)? @ -No Were any procedures done? @ -No Diagnosis/symptom? @ -Syncope, dehydration, UTI Acute, or Chronic, or Acute on Chronic? @ -Acute Uncomplicated (without systemic symptoms) or Complicated (systemic symptoms)? @ -Uncomplicated Side effects of treatment? @ -No Exacerbation, Progression, or Severe Exacerbation? @ -No Poses a threat to life or bodily function? How? (Chest pain, [place], [place], pneumonia, PE, COPD, DKA, ARF, appy, cholecystitis, CVA, Diverticulitis, Homicidal, Suicidal, threat to staff... and all critical care pts) @ -No - Lab Data Result diagrams: 12/12/22 17:20 12/12/22 17:20 Lab Results 12/12/22 12/12/22 12/12/22 Range/Units 17:20 17:20 17:20 WBC 10.7 H (3.8-10.6) k/uL RBC 4.47 (3.80-5.40) m/uL Hgb 12.2 (11.4-16.0) gm/dL Hct 39.0 (34.0-46.0) % MCV 87.2 (80.0-100.0) fL MCH 27.3 (25.0-35.0) pg MCHC 31.3 (31.0-37.0) g/dL RDW 13.8 (11.5-15.5) % Plt Count 374 (150-450) k/uL MPV 7.9 Neutrophils % 58 % Lymphocytes % 28 % Monocytes % 7 % Eosinophils % 5 % Basophils % 0 % Neutrophils # 6.2 (1.3-7.7) k/uL Lymphocytes # 3.0 (1.0-4.8) k/uL Monocytes # 0.7 (0-1.0) k/uL Eosinophils # 0.5 (0-0.7) k/uL Basophils # 0.0 (0-0.2) k/uL Hypochromasia Slight Sodium 141 (137-145) mmol/L Potassium 4.8 (3.5-5.1) mmol/L Chloride 110 H (98-107) mmol/L Carbon Dioxide 21 L (22-30) mmol/L Anion Gap 10 mmol/L BUN 34 H (7-17) mg/dL Creatinine 1.60 H (0.52-1.04) mg/dL Est GFR (CKD-EPI)AfAm 34 (>60 ml/min/1.73 sqM) Est GFR (CKD-EPI)NonAf 30 (>60 ml/min/1.73 sqM) Glucose 118 H (74-99) mg/dL Calcium 10.2 (8.4-10.2) mg/dL Total Bilirubin 0.3 (0.2-1.3) mg/dL AST 23 (14-36) U/L ALT 14 (4-34) U/L Alkaline Phosphatase 107 (38-126) U/L Total Protein 7.1 (6.3-8.2) g/dL Albumin 3.1 L (3.5-5.0) g/dL Urine Color Yellow Urine Appearance Turbid H (Clear) Urine pH 6.5 (5.0-8.0) Ur Specific [place] 1.018 (1.001-1.035) Urine Protein 1+ H (Negative) Urine Glucose (UA) Negative (Negative) Urine Ketones Negative (Negative) Urine Blood Moderate H (Negative) Urine Nitrite Negative (Negative) Urine Bilirubin Negative (Negative) Urine Urobilinogen <2.0 (<2.0) mg/dL Ur Leukocyte Esterase Large H (Negative) Urine RBC 10 H (0-5) /hpf Urine WBC >182 H (0-5) /hpf Urine WBC Clumps Many H (None) /hpf Ur Squamous Epith Cells 3 (0-4) /hpf - EKG Data EKG Comments: KG shows a sinus rhythm at [address] or T-wave changes. HI 200, QRS 97, QT/QTC 402/415. Disposition Clinical Impression: Syncope due to orthostatic hypotension Disposition: HOME SELF-CARE Condition: Good Instructions (If sedation given, give patient instructions): Urinary Tract Infection in Women (ED), Syncope (ED) Additional Instructions: Please return to the Emergency Department if symptoms worsen or any other concerns. Prescriptions: Cephalexin [Keflex] 500 mg PO Q6HR 7 Days #28 cap Is patient prescribed a controlled substance at d/c from ED?: No Referrals: Lenny Galvez MD [Primary Care Provider] - 1-2 days Time of Disposition: 19:45
[2022-12-12 17:44] LABS: Basophils % (A) 0 %; Eosinophils # (A) 0.5 k/uL (0-0.7); Eosinophils % (A) 5 %; HGB 12.2 gm/dL (11.4-16.0); Hypochromasia Slight; Lymphocytes % (A) 28 %; MCH 27.3 pg (25.0-35.0); MCHC 31.3 g/dL (31.0-37.0); MCV 87.2 fL (80.0-100.0); Mean Platelet Volume 7.9; Monocytes # (A) 0.7 k/uL (0-1.0); Monocytes % (A) 7 %; Neutrophils # (A) 6.2 k/uL (1.3-7.7); Neutrophils % (A) 58 %; Platelet Count 374 k/uL (150-450); RBC 4.47 m/uL (3.80-5.40); RDW 13.8 % (11.5-15.5); WBC 10.7 k/uL (3.8-10.6)
[2022-12-12 18:06] LABS: ALT 14 U/L (4-34); AST 23 U/L (14-36); African American GFR (CKD) 34 (>60 ml/min/1.73 sqM); Albumin 3.1 g/dL (3.5-5.0); Alkaline Phosphatase 107 U/L (38-126); Anion Gap 10 mmol/L; Blood Urea Nitrogen 34 mg/dL (7-17); Calcium 10.2 mg/dL (8.4-10.2); Carbon Dioxide 21 mmol/L (22-30); Chloride 110 mmol/L (98-107); Glucose 118 mg/dL (74-99); Non-African American GFR(CKD) 30 (>60 ml/min/1.73 sqM); Potassium 4.8 mmol/L (3.5-5.1); Sodium 141 mmol/L (137-145); Total Bilirubin 0.3 mg/dL (0.2-1.3); Total Protein 7.1 g/dL (6.3-8.2)
--- NOTE | 2022-12-12 18:19 | XR ---
EXAMINATION TYPE: XR chest 2V DATE OF EXAM: 12/12/2022 6:06 PM COMPARISON: Chest radiographs from 10/25/2021. TECHNIQUE: XR chest 2V Frontal and lateral views of the chest. CLINICAL INDICATION:Female, 82 years old with history of syncope; FINDINGS: Lungs/Pleura: Prominent interstitial lung markings are seen scattered throughout the lungs. No eviden ce of focal consolidation, pneumothorax or pleural effusion. Pulmonary vascularity: Unremarkable. Heart/mediastinum: Cardiomediastinal silhouette is unremarkable. Musculoskeletal: No acute osseous pathology. IMPRESSION: Chronic changes without acute pulmonary process. No significant change from prior.
[2022-12-12 19:27] LABS: Appearance,Urine Turbid (Clear); Bilirubin,Urine Negative (Negative); Blood,Urine Moderate (Negative); Color,Urine Yellow; Glucose,Urine (UA) Negative (Negative); Ketones,Urine Negative (Negative); Leukocyte Esterase,Urine Large (Negative); Nitrite,Urine Negative (Negative); PH, Urine 6.5 (5.0-8.0); Protein,Urine 1+ (Negative); RBC,Urine 10 /hpf (0-5); Specific Gravity,Urine 1.018 (1.001-1.035); Squamous Epithelial Cell,Urine 3 /hpf (0-4); Urobilinogen,Urine <2.0 mg/dL (<2.0); WBC,Urine >182 /hpf (0-5)
[2022-12-12 19:55] VITALS: PULSE 70
[2022-12-12] MEDS ORDERED: DIPHENOX-ATROP 2.5-0.025 MG 1 EACH TAB PO STA ×2 (20:11→20:20)
[2022-12-12 21:06] VITALS: BP 113/88; RESP 18
== END 2022-12-12 21:06 | disposition home or self-care (01) ==
LOC: EC 16:36
DX: I95.1 Orthostatic hypotension (principal); K21.9 Gastro-esophageal reflux disease without esophagitis; E78.5 Hyperlipidemia, unspecified; I10 Essential (primary) hypertension; G47.30 Sleep apnea, unspecified; F41.9 Anxiety disorder, unspecified; Z79.899 Other long term (current) drug therapy; Z79.82 Long term (current) use of aspirin; Z88.2 Allergy status to sulfonamides
CPT/HCPCS: 36415; 71046; 80053; 81001; 85025; 93005; 99285